=== PATIENT | female | born 1940 | race Caucasian/White ===

== ENCOUNTER → 2016-10-18 | Outpatient (CLI) | payer OTHER ==
[~2016-10-18] MED LIST: METO1TAB66 PO; MULTCHW4 PO; RIVA1TAB4 PO
--- NOTE | 2016-10-18 16:38 | MAMMOGRAPHY REPORT ---
BILATERAL DIGITAL SCREENING MAMMOGRAM WITH CAD: 10/18/2016 CLINICAL HISTORY: Routine screening. Patient has no complaints. TECHNIQUE: Bilateral CC, MLO and right XCCL views were obtained. Current study was also evaluated with a Computer Aided Detection (CAD) system. COMPARISON: Comparison is made to exams dated: 10/13/2015 mammogram, 10/08/2013 mammogram, 10/09/2014 mammogram, 10/05/2012 mammogram, 10/04/2011 mammogram, and 09/28/2010 mammogram - [facility]. BREAST COMPOSITION: There are scattered areas of fibroglandular density in both breasts. FINDINGS: There is a large, at least 14 cm, fat density mass occupying a portion of the right breast . A new linear scar marker overlies the anterior upper outer right breast. There is a stable intra mammary lymph node in the upper outer posterior right breast, and stable benign-appearing calcificat ions scattered bilaterally. There is asymmetry of the size of the breasts, right greater than left, which may be slightly increased in prominence comparing back to all available prior mammograms, alt daniela this could be technical due to positioning. No new suspicious mass, architectural distortion or cluster of suspicious microcalcifications is seen. IMPRESSION: ACR BI-RADS CATEGORY 1: NEGATIVE There is no mammographic evidence of malignancy. A 1 year screening mammogram is recommended. The p atient will receive written notification of the results. Approximately 10% of breast cancers are not detected with mammography. A negative mammographic repor t should not delay biopsy if a clinically suggestive mass is present. Antonietta Lewis M.D. ay/:10/18/2016 15:54:57 Rating Specialist: Juani NELSON(R)(M), [facility] letter sent: Normal 1/2 BI-RADS Code: ACR BI-RADS Category 1: Negative
== END | disposition home or self-care (01) ==
LOC: C.MAMM 09:07
PROVIDERS: ATTEND Internal Medicine
DX: Z12.31 Encounter for screening mammogram for malignant neoplasm of breast (principal)

== ENCOUNTER → 2017-06-07 | Outpatient (CLI) | payer OTHER ==
[~2017-06-07] MED LIST changes: +METO-452 PO; -METO1TAB66 PO; -MULTCHW4 PO; -RIVA1TAB4 PO
--- NOTE | 2017-06-07 12:23 | DIAGNOSTIC IMAGING REPORT ---
CHEST 2 VIEWS ROUTINE CLINICAL HISTORY: Shortness of breath on exertion COMPARISON STUDY: 11/23/2016 FINDINGS: The heart is mildly enlarged. There is no failure. There is a minimal airspace opacity within the base the right upper lobe anteriorly. This is likely inflammatory. Short-term radiographic follow-up is recommended. Also evident is an equivocal 1 cm left apical nodule. This area should be reevaluated on the follow-up x-ray. There are no pleural effusions.[ IMPRESSION: 1. New airspace opacity within the base of the right upper lobe anteriorly. This is likely infectious/inflammatory. Short-term radiographic follow-up is recommended 2. 1 cm left apical pulmonary nodule versus summation artifact. Electronically signed by: Magnus Oliveros M.D. 06/07/2017 12:21 PM Dictated Date/Time: 06/07/2017 12:19 PM
[2017-06-07 13:46] LABS: ALT/SGPT 15 U/L (12-78); BLOOD UREA NITROGEN 13 mg/dl (7-18); BUN/CREATININE RATIO 16.4 (10-20); CALCIUM 10.1 mg/dl (8.5-10.1); CARBON DIOXIDE 28 mmol/L (21-32); CHLORIDE 102 mmol/L (98-107); CHOLESTEROL 166 mg/dl (0-200); CREATININE 0.82 mg/dl (0.60-1.20); GLUCOSE 97 mg/dl (70-99); SODIUM 138 mmol/L (136-145)
[2017-06-07 13:51] LABS: BASO % 0.2 %; BASO ABS # 0.01 K/uL (0-0.2); COMPLETE YES; EOS % 0.6 %; HEMATOCRIT 44.3 % (37-47); IG% 0.2 %; LYMPH % 14.2 %; LYMPH ABS # 0.93 K/uL (1.2-3.4); MEAN CELL VOLUME 91.9 fL (80-100); MEAN CORPUSCULAR HEMOGLOBIN 31.3 pg (25-34); MEAN CORPUSCULAR HGB CONC 34.1 g/dl (32-36); MEAN PLATELET VOLUME 9.7 fL (7.4-10.4); MONO % 8.7 %; NEUT % 76.1 %; PLATELET COUNT 283 K/uL (130-400); RED BLOOD COUNT 4.82 M/uL (4.2-5.4); WHITE BLOOD COUNT 6.56 K/uL (4.8-10.8)
[2017-06-07 13:56] LABS: ALB/GLOB RATIO 0.8 (0.9-2); ALKALINE PHOSPHATASE 107 U/L (45-117); AST/SGOT 14 U/L (15-37); CHOLESTEROL/HDL RATIO 3.3; HDL CHOLESTEROL 50 mg/dl; LDL CHOLESTEROL CALCULATED 101 mg/dl; TRIGLYCERIDES 74 mg/dl (0-150); VERY LOW DENSITY LIPOPROT CALC 15 mg/dl
[2017-06-07 14:45] LABS: LYME DISEASE AB IGG NEG (NEG); LYME DISEASE AB IGM NEG (NEG)
== END | disposition home or self-care (01) ==
LOC: C.RADBC 10:52
PROVIDERS: ATTEND Physician Assistant
DX: Z00.00 Encounter for general adult medical examination without abnormal findings (principal); R06.02 Shortness of breath; R53.83 Other fatigue

== ENCOUNTER → 2017-07-05 | Outpatient (CLI) | payer OTHER ==
--- NOTE | 2017-07-05 13:19 | DIAGNOSTIC IMAGING REPORT ---
CHEST 2 VIEWS ROUTINE CLINICAL HISTORY: Pneumonia. COMPARISON STUDY: Chest radiograph June 07, 2017. FINDINGS: Lung volumes are at the upper limits of normal. There is no pneumothorax or pleural effusion. Mild cardiomegaly is noted. There is no evidence of pulmonary edema. Opacity within the lateral right midlung shown on prior exam has partially resolved. Minimal right midlung opacity has slightly increased. The possible left upper lobe nodule is not visualized. This was likely artifactual. IMPRESSION: Slight improvement in the previously described right upper lobe airspace opacity with interval development of minimal right midlung opacity. The findings suggest a mild infectious process. An additional PA and lateral chest radiograph in one month to ensure resolution is recommended. Electronically signed by: Bennett Montero M.D. 07/05/2017 1:18 PM Dictated Date/Time: 07/05/2017 1:09 PM
== END | disposition home or self-care (01) ==
LOC: C.RADBC 11:38
PROVIDERS: ATTEND Physician Assistant
DX: J18.9 Pneumonia, unspecified organism (principal)

== ENCOUNTER → 2017-07-12 | Outpatient (CLI) | payer OTHER ==
--- NOTE | 2017-07-12 08:55 | DIAGNOSTIC IMAGING REPORT ---
CT OF THE CHEST WITHOUT IV CONTRAST CLINICAL HISTORY: Pneumonia. Shortness of breath on exertion. COMPARISON STUDY: Chest radiograph June 07, 2017 and July 05, 2017. CT DOSE: 283.44 mGy.cm TECHNIQUE: Axial images of the chest were obtained without IV contrast. Images were reviewed in the axial, sagittal, and coronal planes. IV contrast was not administered for this examination. A dose lowering technique was utilized adhering to the principles of ALARA. FINDINGS: A multinodular thyroid goiter is again noted as shown on ultrasound of February 11, 2016. No enlarged axillary, mediastinal or hilar lymph nodes are present. The heart is mildly enlarged. A right breast reconstruction is noted. Central airways are patent. There is no pneumothorax. Note is made of a 1.3 cm groundglass left upper lobe opacity shown on image 45 of 301. This likely corresponds to the nodule shown on chest radiograph of June 07, 2017. Scattered mild multifocal airspace opacities are noted within the lungs, including a 1.9 cm subpleural irregular opacity within the right upper lobe shown on image 123 and a 3.1 cm elongated opacity within the anterior segment of the right upper lobe shown on image 150. These correspond to the opacities shown on exam of July 05, 2017. There is minimal left lower lobe airspace opacity. There is no cavitation. There is no pneumothorax or pleural effusion. Bony thorax and upper abdomen are unremarkable. IMPRESSION: 1. Multifocal airspace opacities within the right upper lobe and left lung apex which correspond to the findings on prior chest radiographs. A resolving infectious process is favored. However, a follow-up chest CT in 2 months to ensure resolution is recommended. 2. No pleural effusion. 3. No thoracic lymphadenopathy. Electronically signed by: Bennett Montero M.D. 07/12/2017 8:54 AM Dictated Date/Time: 07/12/2017 8:42 AM
== END | disposition home or self-care (01) ==
LOC: C.CTS 08:01
PROVIDERS: ATTEND Physician Assistant
DX: J18.9 Pneumonia, unspecified organism (principal); R06.02 Shortness of breath

== ENCOUNTER → 2017-09-18 | Outpatient (CLI) | payer OTHER ==
--- NOTE | 2017-09-19 07:44 | DIAGNOSTIC IMAGING REPORT ---
(CHEST) THORAX WITHOUT CT DOSE: 243.25 mGy.cm CLINICAL HISTORY: 76 years-old Female with HISTORY OF COUGH, PNEUMONIA. Follow-up study in a patient with recent cough and pneumonia TECHNIQUE: Multiaxial CT images of the chest were performed without contrast. A dose lowering technique was utilized adhering to the principles of ALARA. COMPARISON: Chest CT 07/12/2017 FINDINGS: Multinodular goiter with calcified nodules and heterogeneous parenchyma redemonstrated. No pathologic adenopathy identified. The heart is mildly enlarged. Coronary arterial disease. No thoracic aortic aneurysm identified. There is no pneumothorax or pleural effusion. The previously noted multifocal airspace opacities in the right upper lobe including the pleural-based 1.9 cm opacity have improved demonstrating near complete resolution. Only minimal peripheral groundglass opacity is now seen within the right upper lobe as seen on image 125 series 4 suggesting area of residual scarring. The 1.3 center groundglass opacity of the apical posterior segment left upper lobe has decreased in conspicuity. Mild bilateral subpleural reticular opacities suggest areas of scarring. 3 mm nodule of the lingula on image 189 series 4 appears unchanged. Unchanged 7 mm cystic focus of the left upper lobe. Central airways appear to be patent. There are calcifications of the tracheobronchial tree. No acute abnormality of the imaged upper abdomen identified. Soft tissues are unremarkable. The bones appear to be intact. Bones are mildly demineralized with multilevel endplate changes and facet arthropathy of the spine. IMPRESSION: 1. Near complete resolution of the previously described multifocal airspace opacities within the bilateral upper lobes with only minimal areas of groundglass opacity now seen within these distributions suggesting areas of parenchymal scarring. No new airspace opacities are identified. 2. Unchanged 3 mm nodule of the lingula. 3. No pathologic adenopathy of the chest. Electronically signed by: Fuad Peterson M.D. 09/18/2017 2:57 PM Dictated Date/Time: 09/18/2017 2:50 PM
== END | disposition home or self-care (01) ==
LOC: C.CTS 14:23
PROVIDERS: ATTEND Internal Medicine Pulmonary Disease
DX: J18.9 Pneumonia, unspecified organism (principal); R91.1 Solitary pulmonary nodule

== ENCOUNTER → 2017-09-26 | Outpatient (CLI) | payer OTHER ==
--- NOTE | 2017-09-26 11:23 | DIAGNOSTIC IMAGING REPORT ---
BILATERAL LOWER EXTREMITY VENOUS DOPPLER HISTORY: Acute bilateral lower extremity pain and swelling M79.89 Leg swelling COMPARISON STUDY: None. FINDINGS: There is normal compressibility, flow, and augmentation within the bilateral lower extremity deep venous systems. IMPRESSION: No sonographic evidence of deep venous thrombosis within the right or left lower extremity. Electronically signed by: Fuad Peterson M.D. 09/26/2017 11:22 AM Dictated Date/Time: 09/26/2017 11:21 AM
== END | disposition home or self-care (01) ==
LOC: C.ULTRBC 10:47
PROVIDERS: ATTEND Internal Medicine Pulmonary Disease
DX: M79.89 Other specified soft tissue disorders (principal)

== ENCOUNTER → 2017-10-24 | Outpatient (CLI) | payer OTHER ==
--- NOTE | 2017-10-25 07:55 | MAMMOGRAPHY REPORT ---
BILATERAL DIGITAL SCREENING MAMMOGRAM TOMOSYNTHESIS WITH CAD: 10/24/2017 CLINICAL HISTORY: Routine screening. Patient has no complaints. TECHNIQUE: Breast tomosynthesis in addition to standard 2D mammography was performed. Current study was also evaluated with a Computer Aided Detection (CAD) system. COMPARISON: Comparison is made to exams dated: 10/18/2016 mammogram, 10/13/2015 mammogram, 10/09/2014 m ammogram, 10/08/2013 mammogram, 10/05/2012 mammogram, and 10/04/2011 mammogram - [facility]. BREAST COMPOSITION: There are scattered areas of fibroglandular density in both breasts. FINDINGS: Again noted is a fat density mass occupying the superior right breast, and scattered benign -appearing microcalcifications. No new suspicious mass, architectural distortion or cluster of micro calcifications is seen. IMPRESSION: ACR BI-RADS CATEGORY 1: NEGATIVE There is no mammographic evidence of malignancy. A 1 year screening mammogram is recommended. The pa tient will receive written notification of the results. Approximately 10% of breast cancers are not detected with mammography. A negative mammographic report should not delay biopsy if a clinically suggestive mass is present. Antonietta Lewis M.D. ay/:10/24/2017 16:23:29 Rn Oncology Research: Faith Kiser, [facility] letter sent: Normal 1/2 BI-RADS Code: ACR BI-RADS Category 1: Negative
== END | disposition home or self-care (01) ==
LOC: C.MAMM 09:24
PROVIDERS: ATTEND Internal Medicine
DX: Z12.31 Encounter for screening mammogram for malignant neoplasm of breast (principal)

== ENCOUNTER 2018-02-15 08:25 | Inpatient (IN) | payer OTHER ==
[~2018-02-15] VITALS: Ht 167.6 cm; Wt 73.2 kg
[2018-02-15] MEDS ORDERED: SODIUM CHLORIDE 0.9% 1000ML 1,000 ML IV SCH (08:48)
[2018-02-15] MEDS ORDERED: OPTIRAY 320 IV PRN (09:00)
--- NOTE | 2018-02-15 09:12 | DIAGNOSTIC IMAGING REPORT ---
CHEST ONE VIEW PORTABLE CLINICAL HISTORY: Stroke mental status change COMPARISON STUDY: 02/09/2018 FINDINGS: The bones soft tissues and hemidiaphragms are normal. The cardiomediastinal silhouette is normal. The lungs are clear. The pulmonary vasculature is normal. IMPRESSION: Negative chest. The above report was generated using voice recognition software. It may contain grammatical, syntax or spelling errors. Electronically signed by: Munir Ortiz M.D. 02/15/2018 9:11 AM Dictated Date/Time: 02/15/2018 9:11 AM
[2018-02-15 09:15] LABS: BASO % 0.2 %; BASO ABS # 0.01 K/uL (0-0.2); EOS % 0.6 %; EOS ABS # 0.04 K/uL (0-0.5); HEMATOCRIT 43.1 % (37-47); HEMOGLOBIN 15.1 g/dL (12.0-16.0); IG# 0.02 K/uL (0.00-0.02); LYMPH % 12.9 %; LYMPH ABS # 0.81 K/uL (1.2-3.4); MEAN CELL VOLUME 87.4 fL (80-100); MEAN CORPUSCULAR HEMOGLOBIN 30.6 pg (25-34); MEAN PLATELET VOLUME 9.6 fL (7.4-10.4); MONO % 6.9 %; MONO ABS # 0.43 K/uL (0.11-0.59); NEUT % 79.1 %; NEUT ABS # 4.96 K/uL (1.4-6.5); PLATELET COUNT 255 K/uL (130-400); RED CELL DISTRIBUTION WIDTH CV 12.8 % (11.5-14.5); WHITE BLOOD COUNT 6.27 K/uL (4.8-10.8)
[2018-02-15 09:20] LABS: ISTAT CREATININE 0.7 mg/dl (0.6-1.3); ISTAT IONIZED CALCIUM 1.28 mmol/l (1.12-1.32); ISTAT POTASSIUM 4.4 mEq/L (3.3-5.0)
[2018-02-15 09:25] LABS: INR 1.4 (0.9-1.1); PTT PATIENT 33.1 SECONDS (21.0-31.0)
[2018-02-15] MEDS ORDERED: FLUT1INH INH (09:30)
[2018-02-15] MEDS ORDERED: XRL20 PO (09:30)
[2018-02-15] MEDS ORDERED: VBRT100 PO (09:30)
[2018-02-15] MEDS ORDERED: METO-217 PO (09:30)
[2018-02-15] MEDS ORDERED: ASPI81TA28 PO (09:30)
[2018-02-15 09:37] LABS: BLOOD UREA NITROGEN 21 mg/dl (7-18); CALCIUM 10.1 mg/dl (8.5-10.1); CARBON DIOXIDE 26 mmol/L (21-32); CKMB < 1.0 ng/ml (0.5-3.6); CREATININE 0.86 mg/dl (0.60-1.20); GLUCOSE 121 mg/dl (70-99); SODIUM 137 mmol/L (136-145)
--- NOTE | 2018-02-15 09:57 | DIAGNOSTIC IMAGING REPORT ---
HEAD WITHOUT CONTRAST (CT) CLINICAL HISTORY: 77 years-old Female with Stroke. Acute strokelike symptoms TECHNIQUE: Multiple axial CT images of the head were obtained without contrast. A dose lowering technique was utilized adhering to the principles of ALARA. COMPARISON: CTA head and neck of same day, CT head 02/09/2018, brain MRI 02/09/2018. FINDINGS: No acute intracranial hemorrhage, midline shift, intracranial mass, hydrocephalus, or abnormal extra-axial collection. Ill-defined area of low-attenuation is noted about the superior aspect of the left thalamus, 1.4 x 0.8 cm on image 1:15 of series 301 Mild brain atrophy. Ill-defined low-attenuation about the periventricular white matter suggests chronic microvascular ischemic changes. The calvarium is intact. Mastoid air cells and middle ear cavities are clear. Mild leftward bowing and spurring of the nasal septum. Moderate mucosal thickening of the sphenoid sinuses with air-fluid levels. Mild ethmoid sinus disease. Soft tissues and orbits are unremarkable. Note is made of disconjugate gaze. IMPRESSION: 1.4 x 0.8 cm area of low-attenuation about the left thalamus is new from comparison study suggesting acute infarction. No intracranial hemorrhage, midline shift or significant mass effect. The above report was generated using voice recognition software. It may contain grammatical, syntax or spelling errors. Electronically signed by: Fuad Peterson M.D. 02/15/2018 9:55 AM Dictated Date/Time: 02/15/2018 9:46 AM
--- NOTE | 2018-02-15 10:03 | DIAGNOSTIC IMAGING REPORT ---
CTA ANGIOGRAPHY OF THE HEAD CLINICAL HISTORY: Stroke symptoms. Visual disturbance. 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 COMPARISON STUDY: MRI of the brain and head CT February 09, 2018. TECHNIQUE: Helical axial images of the head were obtained following uneventful intravenous administration of 118 cc of Optiray 320. A dose lowering technique was utilized adhering to the principles of ALARA. FINDINGS: The sphenoid sinuses are partially opacified with air-fluid level and secretions. The orbits are unremarkable on this examination. No acute intracranial hemorrhage is present. Ventricular system is unremarkable. Brain parenchyma is suboptimally assessed on this exam. There is moderate plaque within the bilateral cavernous carotids. No high-grade stenosis is present. No abrupt vessel cut off is identified. No intracranial aneurysm is identified. Posterior circulation is intact. IMPRESSION: 1. No intracranial aneurysm or abrupt vessel cutoff. 2. Moderate plaque within the bilateral cavernous carotids without high-grade stenosis. 3. Sphenoid sinus air-fluid level which favors acute sinusitis. Electronically signed by: Bennett Montero M.D. 02/15/2018 10:01 AM Dictated Date/Time: 02/15/2018 9:47 AM
--- NOTE | 2018-02-15 11:07 | DIAGNOSTIC IMAGING REPORT ---
NECK ANGIO WITH CONTRAST CLINICAL HISTORY: 77 years-old Female with Stroke symptoms. Acute strokelike symptoms COMPARISON STUDY: CTA had and CT head of same day, chest radiograph 02/15/2018, CT chest 09/18/2017. TECHNIQUE: Following the IV administration of 118 of Optiray 320, CT angiogram of the neck was performed from the aortic arch to the skull base. Images are reviewed in the axial, sagittal, and coronal planes. 3-D MIPS images are created and assessed. IV contrast was administered without complication. All measurements were calculated based on NASCET criteria. A dose lowering technique was utilized adhering to the principles of ALARA. FINDINGS: The opacified pulmonary arterial tree is unremarkable. Normal three-vessel morphology of the aortic arch. Moderate mixed plaque formation about the aortic arch and proximal great vessels. The imaged bilateral subclavian arteries are widely patent. The bilateral common carotid arteries are widely patent. Moderate mixed plaque formation of the carotid bulbs bilaterally. There is patency of the bilateral internal carotid arteries. Calcified plaque formation about the cavernous segments partially imaged. Calcified plaque formation is noted about the petrous segment right internal artery without high-grade stenosis. The vertebral arteries appear to be codominant. Mild tortuosity of the proximal right vertebral artery. Imaged basilar artery is also widely patent. There is no aneurysm, high-grade stenosis, proximal branch occlusion or dissection identified. Multifocal partially imaged alveolar opacities about the lung apices with focal consolidative opacity about the right lung apex measuring up to 10 mm. Mild bilateral bronchial wall thickening. Multinodular goiter with 2.6 x 1.9 cm heterogeneous nodule seen on the left containing internal calcifications. There are no pathologically enlarged lymph nodes identified about the neck. Air-fluid levels with moderate mucosal thickening again noted within the sphenoid sinuses. Mastoid air cells and middle ear cavities are clear. Multilevel uncovertebral spurring and intervertebral disc space narrowing with facet arthropathy of the cervical spine. IMPRESSION: 1. No aneurysm, dissection, high-grade stenosis or proximal branch occlusion. 2. Moderate mixed plaque formation about the bilateral carotid bulbs without significant narrowing. 3. Multifocal patchy and partially imaged alveolar opacities about the lung apices. These findings are suspicious for multifocal pneumonia and follow-up imaging after treatment to document resolution is recommended. 4. Suggested acute sphenoid sinus disease. The above report was generated using voice recognition software. It may contain grammatical, syntax or spelling errors. Electronically signed by: Fuad Peterson M.D. 02/15/2018 11:06 AM Dictated Date/Time: 02/15/2018 10:57 AM
[2018-02-15] MEDS ORDERED: PHARMACIST DISCHARGE MED REC CONSULT PRN (11:15)
--- NOTE | 2018-02-15 12:02 | EMERGENCY ROOM VISIT NOTE ---
History Report prepared by Anne: Jackie Tellez Under the Supervision of: Dr. Renny Arroyo M.D. First contact with patient: 08:37 Chief Complaint: NEURO SYMPTOMS Stated Complaint: POSSIBLE STROKE Nursing Triage Summary: Pt arrived via POV from home. Pts son states night pt had difficulty getting to bathroom overnight. Monday woke up and was having trouble with vision. Pts son states left eye not tracking with right eye. 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 Pt had testing done on Monday. Pt started having short term memory loss Monday night. Patch noted to pts left eye, provided by Dr. Stevenson. History of Present Illness The patient is a 77 year old female who presents to the Emergency Room with complaints of persistent speech difficulties starting 4 days ago. 1 week ago, the patient bumped into several objects while making her way to the bathroom in the night. The next morning, she woke up with double vision and found that her left eye was not tracking as it should. She was brought to the ED where she had CT, MRI, MRA, and blood work which was unremarkable. She followed up with ophthalmology and was diagnosed with 3rd nerve palsy. She was doing well, until 4 days ago she woke up from a nap feeling disoriented. She seemed to have some sudden memory loss. She was unable to identify roads that she is normally familiar with. She could not explain how to get to her doctor's office when asked by her son. She notes that she can picture the way, but cannot explain it. She seems to have difficulty answering questions. She denies any abdominal pain. Source of History: patient, family Onset: 4 days ago Position: other (speech) Quality: other (difficulty answering questions) Timing: other (persistent) Associated Symptoms: No abdominal pain Review of Systems See HPI for pertinent positives & negatives. A total of 10 systems reviewed and were otherwise negative. Past Medical & Surgical Medical Problems: (1) Acute ischemic stroke Surgical Problems: (1) History of cataract surgery Family History Noncontributory secondary to age Social History Smoking Status: Former Smoker Alcohol Use: occasionally Drug Use: none Marital Status: Housing Status: lives with family Occupation Status: retired Current/Historical Medications Scheduled Aspirin (Aspirin Ec), 81 MG PO DAILY Doxycycline Hyclate (Doxycycline Hyclate), 100 MG PO BID Fluticasone Furoate-Vilanterol (Breo Ellipta), 1 PUFF INH DAILY Metoprolol Succinate (Toprol Xl), 50 MG PO DAILY Rivaroxaban (Xarelto), 20 MG PO DAILY Allergies Coded Allergies: Acetaminophen (Verified Allergy, Severe, ANAPHYLAXIS, 02/15/18) Oxycodone (Verified Allergy, Severe, ANAPHYLAXIS, 02/15/18) Codeine (Verified Allergy, Mild, HIVES, 02/15/18) Penicillins (Verified Allergy, Mild, ANAPHYLAXIS, 02/15/18) Physical Exam Vital Signs Date Time Temp Pulse Resp B/P (MAP) Pulse Ox O2 Delivery O2 Flow Rate FiO2 02/15/18 11:06 78 18 150/87 96 Room Air 02/15/18 10:30 78 20 171/79 97 Room Air 02/15/18 08:52 95 02/15/18 08:40 96 Room Air 02/15/18 08:27 36.2 95 18 181/84 95 Room Air Physical Exam GENERAL: Awake, alert, well-appearing, in no acute distress HENT: Normocephalic, atraumatic. Oropharynx unremarkable. EYES: Normal conjunctiva. Sclera non-icteric. NECK: Supple. No nuchal rigidity. FROM. No JVD. RESPIRATORY: Clear to auscultation. CARDIAC: Regular rate, normal rhythm. Extremities warm and well perfused. Pulses equal. ABDOMEN: Soft, non-distended. No tenderness to palpation. No rebound or guarding. No masses. RECTAL: Deferred. MUSCULOSKELETAL: Chest examination reveals no tenderness. The back is symmetrical on inspection without obvious abnormality. There is no CVA tenderness to palpation. No joint edema. LOWER EXTREMITIES: Calves are equal size bilaterally and non-tender. No edema. No discoloration. NEURO: Normal sensorium. No sensory or motor deficits noted. SKIN: No rash or jaundice noted. Medical Decision & Procedures ER Provider Diagnostic Interpretation: X-ray results as stated below per interpretation by me and the radiologist. Radiology results as stated below per my review and radiologist interpretation: CHEST ONE VIEW PORTABLE CLINICAL HISTORY: Stroke mental status change COMPARISON STUDY: 02/09/2018 FINDINGS: The bones soft tissues and hemidiaphragms are normal. The cardiomediastinal silhouette is normal. The lungs are clear. The pulmonary vasculature is normal. IMPRESSION: Negative chest. The above report was generated using voice recognition software. It may contain grammatical, syntax or spelling errors. Electronically signed by: Munir Ortiz M.D. 02/15/2018 9:11 AM Dictated Date/Time: 02/15/2018 9:11 AM HEAD WITHOUT CONTRAST (CT) CLINICAL HISTORY: 77 years-old Female with Stroke. Acute strokelike symptoms TECHNIQUE: Multiple axial CT images of the head were obtained without contrast. A dose lowering technique was utilized adhering to the principles of ALARA. COMPARISON: CTA head and neck of same day, CT head 02/09/2018, brain MRI 02/09/2018. FINDINGS: No acute intracranial hemorrhage, midline shift, intracranial mass, hydrocephalus, or abnormal extra-axial collection. Ill-defined area of low-attenuation is noted about the superior aspect of the left thalamus, 1.4 x 0.8 cm on image 1:15 of series 301 Mild brain atrophy. Ill-defined low-attenuation about the periventricular white matter suggests chronic microvascular ischemic changes. The calvarium is intact. Mastoid air cells and middle ear cavities are clear. Mild leftward bowing and spurring of the nasal septum. Moderate mucosal thickening of the sphenoid sinuses with air-fluid levels. Mild ethmoid sinus disease. Soft tissues and orbits are unremarkable. Note is made of disconjugate gaze. IMPRESSION: 1.4 x 0.8 cm area of low-attenuation about the left thalamus is new from comparison study suggesting acute infarction. No intracranial hemorrhage, midline shift or significant mass effect. The above report was generated using voice recognition software. It may contain grammatical, syntax or spelling errors. Electronically signed by: Fuad Peterson M.D. 02/15/2018 9:55 AM Dictated Date/Time: 02/15/2018 9:46 AM CTA ANGIOGRAPHY OF THE HEAD CLINICAL HISTORY: Stroke symptoms. Visual disturbance. 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 COMPARISON STUDY: MRI of the brain and head CT February 09, 2018. TECHNIQUE: Helical axial images of the head were obtained following uneventful intravenous administration of 118 cc of Optiray 320. A dose lowering technique was utilized adhering to the principles of ALARA. FINDINGS: The sphenoid sinuses are partially opacified with air-fluid level and secretions. The orbits are unremarkable on this examination. No acute intracranial hemorrhage is present. Ventricular system is unremarkable. Brain parenchyma is suboptimally assessed on this exam. There is moderate plaque within the bilateral cavernous carotids. No high-grade stenosis is present. No abrupt vessel cut off is identified. No intracranial aneurysm is identified. Posterior circulation is intact. IMPRESSION: 1. No intracranial aneurysm or abrupt vessel cutoff. 2. Moderate plaque within the bilateral cavernous carotids without high-grade stenosis. 3. Sphenoid sinus air-fluid level which favors acute sinusitis. Electronically signed by: Bennett Montero M.D. 02/15/2018 10:01 AM Dictated Date/Time: 02/15/2018 9:47 AM NECK ANGIO WITH CONTRAST CLINICAL HISTORY: 77 years-old Female with Stroke symptoms. Acute strokelike symptoms COMPARISON STUDY: CTA had and CT head of same day, chest radiograph 02/15/2018, CT chest 09/18/2017. TECHNIQUE: Following the IV administration of 118 of Optiray 320, CT angiogram of the neck was performed from the aortic arch to the skull base. Images are reviewed in the axial, sagittal, and coronal planes. 3-D MIPS images are created and assessed. IV contrast was administered without complication. All measurements were calculated based on NASCET criteria. A dose lowering technique was utilized adhering to the principles of ALARA. FINDINGS: The opacified pulmonary arterial tree is unremarkable. Normal three-vessel morphology of the aortic arch. Moderate mixed plaque formation about the aortic arch and proximal great vessels. The imaged bilateral subclavian arteries are widely patent. The bilateral common carotid arteries are widely patent. Moderate mixed plaque formation of the carotid bulbs bilaterally. There is patency of the bilateral internal carotid arteries. Calcified plaque formation about the cavernous segments partially imaged. Calcified plaque formation is noted about the petrous segment right internal artery without high-grade stenosis. The vertebral arteries appear to be codominant. Mild tortuosity of the proximal right vertebral artery. Imaged basilar artery is also widely patent. There is no aneurysm, high-grade stenosis, proximal branch occlusion or dissection identified. Multifocal partially imaged alveolar opacities about the lung apices with focal consolidative opacity about the right lung apex measuring up to 10 mm. Mild bilateral bronchial wall thickening. Multinodular goiter with 2.6 x 1.9 cm heterogeneous nodule seen on the left containing internal calcifications. There are no pathologically enlarged lymph nodes identified about the neck. Air-fluid levels with moderate mucosal thickening again noted within the sphenoid sinuses. Mastoid air cells and middle ear cavities are clear. Multilevel uncovertebral spurring and intervertebral disc space narrowing with facet arthropathy of the cervical spine. IMPRESSION: 1. No aneurysm, dissection, high-grade stenosis or proximal branch occlusion. 2. Moderate mixed plaque formation about the bilateral carotid bulbs without significant narrowing. 3. Multifocal patchy and partially imaged alveolar opacities about the lung apices. These findings are suspicious for multifocal pneumonia and follow-up imaging after treatment to document resolution is recommended. 4. Suggested acute sphenoid sinus disease. The above report was generated using voice recognition software. It may contain grammatical, syntax or spelling errors. Electronically signed by: Fuad Peterson M.D. 02/15/2018 11:06 AM Dictated Date/Time: 02/15/2018 10:57 AM Laboratory Results 02/15/18 08:52 Red Blood Count 4.93, Mean Corpuscular Volume 87.4, Mean Corpuscular Hemoglobin 30.6, Mean Corpuscular Hemoglobin Concent 35.0, Mean Platelet Volume 9.6, Neutrophils (%) (Auto) 79.1, Lymphocytes (%) (Auto) 12.9, Monocytes (%) (Auto) 6.9, Eosinophils (%) (Auto) 0.6, Basophils (%) (Auto) 0.2, Neutrophils # (Auto) 4.96, Lymphocytes # (Auto) 0.81, Monocytes # (Auto) 0.43, Eosinophils # (Auto) 0.04, Basophils # (Auto) 0.01 02/15/18 08:52 Test 02/15/18 08:52 02/15/18 09:07 02/15/18 09:55 White Blood Count 6.27 K/uL (4.8-10.8) Red Blood Count 4.93 M/uL (4.2-5.4) Hemoglobin 15.1 g/dL (12.0-16.0) Hematocrit 43.1 % (37-47) Mean Corpuscular Volume 87.4 fL (80-100) Mean Corpuscular Hemoglobin 30.6 pg (25-34) Mean Corpuscular Hemoglobin Concent 35.0 g/dl (32-36) Platelet Count 255 K/uL (130-400) Mean Platelet Volume 9.6 fL (7.4-10.4) Neutrophils (%) (Auto) 79.1 % Lymphocytes (%) (Auto) 12.9 % Monocytes (%) (Auto) 6.9 % Eosinophils (%) (Auto) 0.6 % Basophils (%) (Auto) 0.2 % Neutrophils # (Auto) 4.96 K/uL (1.4-6.5) Lymphocytes # (Auto) 0.81 K/uL (1.2-3.4) Monocytes # (Auto) 0.43 K/uL (0.11-0.59) Eosinophils # (Auto) 0.04 K/uL (0-0.5) Basophils # (Auto) 0.01 K/uL (0-0.2) RDW Standard Deviation 41.0 fL (36.4-46.3) RDW Coefficient of Variation 12.8 % (11.5-14.5) Immature Granulocyte % (Auto) 0.3 % Immature Granulocyte # (Auto) 0.02 K/uL (0.00-0.02) Prothrombin Time 14.9 SECONDS (9.0-12.0) Prothromb Time International Ratio 1.4 (0.9-1.1) Activated Partial Thromboplast Time 33.1 SECONDS (21.0-31.0) Partial Thromboplastin Ratio 1.3 Est Creatinine Clear Calc Drug Dose 54.2 ml/min Estimated GFR () 74.5 Estimated GFR (Non- 64.3 BUN/Creatinine Ratio 24.1 (10-20) Calcium Level 10.1 mg/dl (8.5-10.1) Magnesium Level 2.3 mg/dl (1.8-2.4) Total Creatine Kinase 40 U/L (26-192) Creatine Kinase MB < 1.0 ng/ml (0.5-3.6) Creatine Kinase MB Ratio (0-3.0) Troponin I < 0.015 ng/ml (0-0.045) Bedside Hemoglobin 13.9 g/dl (12.0-16.0) Bedside Hematocrit 41 % (37-47) Bedside Sodium 136 mEq/L (135-144) Bedside Potassium 4.4 mEq/L (3.3-5.0) Bedside Chloride 102 mEq/L (101-112) Bedside Total CO2 29 mEq/l (24-31) Anion Gap 11.0 mmol/L (16-25) Bedside Blood Urea Nitrogen 25 mg/dl (7-18) Bedside Creatinine 0.7 mg/dl (0.6-1.3) Bedside Glucose (other) 127 mg/dl (70-99) Bedside Ionized Calcium (Saleem) 1.28 mmol/l (1.12-1.32) Urine Color YELLOW Urine Appearance CLEAR (CLEAR) Urine pH 5.5 (4.5-7.5) Urine Specific [place] 1.041 (1.000-1.030) Urine Protein NEG (NEG) Urine Glucose (UA) NEG (NEG) Urine Ketones NEG (NEG) Urine Occult Blood NEG (NEG) Urine Nitrite NEG (NEG) Urine Bilirubin NEG (NEG) Urine Urobilinogen NEG (NEG) Urine Leukocyte Esterase TRACE (NEG) Urine WBC (Auto) 1-5 /hpf (0-5) Urine RBC (Auto) 0-4 /hpf (0-4) Urine Hyaline Casts (Auto) 1-5 /lpf (0-5) Urine Epithelial Cells (Auto) >30 /lpf (0-5) Urine Bacteria (Auto) NEG (NEG) Labs reviewed by ED physician. Medications Administered Medications (Trade) Dose Ordered Sig/Adriana Route Start Time Stop Time Status Last Admin Dose Admin Sodium Chloride 1,000 ml @ 50 mls/hr Q20H IV 02/15/18 08:48 03/17/18 08:47 02/15/18 10:37 50 MLS/HR ECG Per My Interpretation Indication: other (stroke symptoms) Rate (beats per minute): 80 Rhythm: atrial fibrillation Findings: other (no ST elevation or depression) Comparison ECG Date: 09-Feb-2018 Change: no significant change ED Course 0841: Past medical records reviewed. The patient was evaluated in room B9. A complete history and physical examination was performed. 1016: Upon reexamination the patient is resting comfortably. I discussed results and treatment plan with the patient and family. They verbalize agreement and understanding. The patient will be evaluated for further management. 1025: I discussed the patient's case with Dr. Pierce, [facility] [place] hospitalist. He has agreed to evaluate the patient for further management and care. Medical Decision Differential diagnosis: Etiologies such as metabolic, infection, hypo/hyperglycemia, electrolyte abnormalities, cardiac sources, intracerebral event, toxicologic, neurologic, as well as others were entertained. Medication Reconcilliation Current Medication List: was personally reviewed by me Blood Pressure Screening Patient's blood pressure: Elevated blood pressure Referred to hospitalist Consults Time Called: 1013 Consulting Physician: Dr. Pierce [facility] [place] hospitalist Returned Call: [phone] I discussed the patient's case with him. He has agreed to evaluate the patient for further management and care. Impression Primary Impression: CVA (cerebral vascular accident) Scribe Attestation The scribe's documentation has been prepared under my direction and personally reviewed by me in its entirety. I confirm that the note above accurately reflects all work, treatment, procedures, and medical decision making performed by me. Departure Information Dispostion Being Evaluated By Hospitalist Referrals Vlad Leach M.D. (PCP) Patient Instructions My [facility]
[2018-02-15 12:07] LABS: HEMOGLOBIN A1C 5.8 % (4.5-5.6)
--- NOTE | 2018-02-15 12:19 | History and Physical ---
History & Physical Date & Time of Service: Feb 15, 2018 at 11:55 Chief Complaint: Possible Stroke Primary Care Physician: Vlad Leach M.D. History of Present Illness 77 yo female who was recently evaluated for stroke on the of this month, had negative extensive workup which included negative MRI, MRA of brain with negative CT scans at the ED. 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 Patient went to see an ophthalmology that day as she had double vision. She had mild ptosis of the left side at the time with complete loss of adduction of the left eye. She was found to have sinus sinusitis on imaging and placed on doxycycline. On Monday, at noon, patient was not herself, as per family. She stated she was confused and had memory loss. She stated that she was having difficulty finding words, and some balance issues. This gradually improved over the course of the week, up until today where she just didn't feel like her normal self. She is vague about of she feels today. Her family is in the room and states that she is normally very active and last week was riding her mountain bike. Past Medical/Surgical History Medical Problems: (1) Acute ischemic stroke (2) New onset atrial fibrillation (3) Third nerve palsy of left eye Surgical Problems: (1) History of cataract surgery Family History Family History Mother Family history of Breast Cancer Family history of Mother At Age 78 Father Family history of Acute Myocardial Infarction Family history of Father At Age 74 Brother Family history of Intellectual Disabilities Family history of Pacemaker Permanent Placement Family History Family history of Coronary Artery Disease Family history of Family Health Status Number Of Children Social History Smoking Status: Former Smoker Drug Use: none Marital Status: Occupational Status: retired Immunizations History of Influenza Vaccine: Yes History of Tetanus Vaccine?: Yes History of Pneumococcal: Yes History of Hepatitis B Vaccine: Yes Allergies Coded Allergies: Acetaminophen (Verified Allergy, Severe, ANAPHYLAXIS, 02/15/18) Oxycodone (Verified Allergy, Severe, ANAPHYLAXIS, 02/15/18) Codeine (Verified Allergy, Mild, HIVES, 02/15/18) Penicillins (Verified Allergy, Mild, ANAPHYLAXIS, 02/15/18) Home Medications Scheduled Aspirin (Aspirin Ec), 81 MG PO DAILY Doxycycline Hyclate (Doxycycline Hyclate), 100 MG PO BID Fluticasone Furoate-Vilanterol (Breo Ellipta), 1 PUFF INH DAILY Metoprolol Succinate (Toprol Xl), 50 MG PO DAILY Rivaroxaban (Xarelto), 20 MG PO DAILY Review of Systems Constitutional: No fever, No chills Eyes: + worsening of vision ENT: No hearing loss Respiratory: No cough Cardiovascular: No chest pain Abdomen: No pain Neurologic: + memory loss, No paralysis, No weakness Psychiatric: No depression symptoms Endocrine: + fatigue Hematologic / Lymphatic: No abnormal bleeding/bruising Integumentary: No rash Allergic / Immunologic: No environmental allergies Physical Exam Vital Signs Date Time Temp Pulse Resp B/P (MAP) Pulse Ox O2 Delivery O2 Flow Rate FiO2 02/15/18 10:30 78 20 171/79 97 Room Air 02/15/18 08:52 95 02/15/18 08:40 96 Room Air 02/15/18 08:27 36.2 95 18 181/84 95 Room Air General Appearance: WD/WN Head: normocephalic, atraumatic Eyes: + pertinent finding (left eye is covered in a patch.) ENT: normal ENT inspection Neck: supple, no adenopathy Respiratory/Chest: chest non-tender, lungs clear, normal breath sounds Cardiovascular: no edema, + irregularly irregular Abdomen/GI: normal bowel sounds, non tender, soft Extremities/Musculoskelatal: normal inspection, no calf tenderness Neurologic/Psych: alert, oriented x 3 Skin: normal color Lymphatic: no adenopathy Diagnostics Laboratory Results Results Past 24 Hours Test 02/15/18 08:52 02/15/18 09:07 02/15/18 09:55 Range/Units White Blood Count 6.27 4.8-10.8 K/uL Red Blood Count 4.93 4.2-5.4 M/uL Hemoglobin 15.1 12.0-16.0 g/dL Hematocrit 43.1 37-47 % Mean Corpuscular Volume 87.4 80-100 fL Mean Corpuscular Hemoglobin 30.6 25-34 pg Mean Corpuscular Hemoglobin Concent 35.0 32-36 g/dl Platelet Count 255 130-400 K/uL Mean Platelet Volume 9.6 7.4-10.4 fL Neutrophils (%) (Auto) 79.1 % Lymphocytes (%) (Auto) 12.9 % Monocytes (%) (Auto) 6.9 % Eosinophils (%) (Auto) 0.6 % Basophils (%) (Auto) 0.2 % Neutrophils # (Auto) 4.96 1.4-6.5 K/uL Lymphocytes # (Auto) 0.81 1.2-3.4 K/uL Monocytes # (Auto) 0.43 0.11-0.59 K/uL Eosinophils # (Auto) 0.04 0-0.5 K/uL Basophils # (Auto) 0.01 0-0.2 K/uL RDW Standard Deviation 41.0 36.4-46.3 fL RDW Coefficient of Variation 12.8 11.5-14.5 % Immature Granulocyte % (Auto) 0.3 % Immature Granulocyte # (Auto) 0.02 0.00-0.02 K/uL Prothrombin Time 14.9 9.0-12.0 SECONDS Prothromb Time International Ratio 1.4 0.9-1.1 Activated Partial Thromboplast Time 33.1 21.0-31.0 SECONDS Partial Thromboplastin Ratio 1.3 Sodium Level 137 136-145 mmol/L Potassium Level 4.0 3.5-5.1 mmol/L Chloride Level 104 98-107 mmol/L Carbon Dioxide Level 26 21-32 mmol/L Anion Gap 7.0 11.0 16-25 mmol/L Blood Urea Nitrogen 21 7-18 mg/dl Creatinine 0.86 0.60-1.20 mg/dl Est Creatinine Clear Calc Drug Dose 54.2 ml/min Estimated GFR () 74.5 Estimated GFR (Non- 64.3 BUN/Creatinine Ratio 24.1 10-20 Random Glucose 121 70-99 mg/dl Calcium Level 10.1 8.5-10.1 mg/dl Magnesium Level 2.3 1.8-2.4 mg/dl Total Creatine Kinase 40 26-192 U/L Creatine Kinase MB < 1.0 0.5-3.6 ng/ml Creatine Kinase MB Ratio 0-3.0 Troponin I < 0.015 0-0.045 ng/ml Bedside Hemoglobin 13.9 12.0-16.0 g/dl Bedside Hematocrit 41 37-47 % Bedside Sodium 136 135-144 mEq/L Bedside Potassium 4.4 3.3-5.0 mEq/L Bedside Chloride 102 101-112 mEq/L Bedside Total CO2 29 24-31 mEq/l Bedside Blood Urea Nitrogen 25 7-18 mg/dl Bedside Creatinine 0.7 0.6-1.3 mg/dl Bedside Glucose (other) 127 70-99 mg/dl Bedside Ionized Calcium (Saleem) 1.28 1.12-1.32 mmol/l Urine Color YELLOW Urine Appearance CLEAR CLEAR Urine pH 5.5 4.5-7.5 Urine Specific [place] 1.041 1.000-1.030 Urine Protein NEG NEG Urine Glucose (UA) NEG NEG Urine Ketones NEG NEG Urine Occult Blood NEG NEG Urine Nitrite NEG NEG Urine Bilirubin NEG NEG Urine Urobilinogen NEG NEG Urine Leukocyte Esterase TRACE NEG Urine WBC (Auto) 1-5 0-5 /hpf Urine RBC (Auto) 0-4 0-4 /hpf Urine Hyaline Casts (Auto) 1-5 0-5 /lpf Urine Epithelial Cells (Auto) >30 0-5 /lpf Urine Bacteria (Auto) NEG NEG Diagnostic Radiology HEAD WITHOUT CONTRAST (CT) CLINICAL HISTORY: 77 years-old Female with Stroke. Acute strokelike symptoms TECHNIQUE: Multiple axial CT images of the head were obtained without contrast. A dose lowering technique was utilized adhering to the principles of ALARA. COMPARISON: CTA head and neck of same day, CT head 02/09/2018, brain MRI 02/09/2018. FINDINGS: No acute intracranial hemorrhage, midline shift, intracranial mass, hydrocephalus, or abnormal extra-axial collection. Ill-defined area of low-attenuation is noted about the superior aspect of the left thalamus, 1.4 x 0.8 cm on image 1:15 of series 301 Mild brain atrophy. Ill-defined low-attenuation about the periventricular white matter suggests chronic microvascular ischemic changes. The calvarium is intact. Mastoid air cells and middle ear cavities are clear. Mild leftward bowing and spurring of the nasal septum. Moderate mucosal thickening of the sphenoid sinuses with air-fluid levels. Mild ethmoid sinus disease. Soft tissues and orbits are unremarkable. Note is made of disconjugate gaze. IMPRESSION: 1.4 x 0.8 cm area of low-attenuation about the left thalamus is new from comparison study suggesting acute infarction. No intracranial hemorrhage, midline shift or significant mass effect. CHEST ONE VIEW PORTABLE CLINICAL HISTORY: Stroke mental status change COMPARISON STUDY: 02/09/2018 FINDINGS: The bones soft tissues and hemidiaphragms are normal. The cardiomediastinal silhouette is normal. The lungs are clear. The pulmonary vasculature is normal. IMPRESSION: Negative chest. CTA ANGIOGRAPHY OF THE HEAD CLINICAL HISTORY: Stroke symptoms. Visual disturbance. 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 COMPARISON STUDY: MRI of the brain and head CT February 09, 2018. TECHNIQUE: Helical axial images of the head were obtained following uneventful intravenous administration of 118 cc of Optiray 320. A dose lowering technique was utilized adhering to the principles of ALARA. FINDINGS: The sphenoid sinuses are partially opacified with air-fluid level and secretions. The orbits are unremarkable on this examination. No acute intracranial hemorrhage is present. Ventricular system is unremarkable. Brain parenchyma is suboptimally assessed on this exam. There is moderate plaque within the bilateral cavernous carotids. No high-grade stenosis is present. No abrupt vessel cut off is identified. No intracranial aneurysm is identified. Posterior circulation is intact. IMPRESSION: 1. No intracranial aneurysm or abrupt vessel cutoff. 2. Moderate plaque within the bilateral cavernous carotids without high-grade stenosis. 3. Sphenoid sinus air-fluid level which favors acute sinusitis. NECK ANGIO WITH CONTRAST CLINICAL HISTORY: 77 years-old Female with Stroke symptoms. Acute strokelike symptoms COMPARISON STUDY: CTA had and CT head of same day, chest radiograph 02/15/2018, CT chest 09/18/2017. TECHNIQUE: Following the IV administration of 118 of Optiray 320, CT angiogram of the neck was performed from the aortic arch to the skull base. Images are reviewed in the axial, sagittal, and coronal planes. 3-D MIPS images are created and assessed. IV contrast was administered without complication. All measurements were calculated based on NASCET criteria. A dose lowering technique was utilized adhering to the principles of ALARA. FINDINGS: The opacified pulmonary arterial tree is unremarkable. Normal three-vessel morphology of the aortic arch. Moderate mixed plaque formation about the aortic arch and proximal great vessels. The imaged bilateral subclavian arteries are widely patent. The bilateral common carotid arteries are widely patent. Moderate mixed plaque formation of the carotid bulbs bilaterally. There is patency of the bilateral internal carotid arteries. Calcified plaque formation about the cavernous segments partially imaged. Calcified plaque formation is noted about the petrous segment right internal artery without high-grade stenosis. The vertebral arteries appear to be codominant. Mild tortuosity of the proximal right vertebral artery. Imaged basilar artery is also widely patent. There is no aneurysm, high-grade stenosis, proximal branch occlusion or dissection identified. Multifocal partially imaged alveolar opacities about the lung apices with focal consolidative opacity about the right lung apex measuring up to 10 mm. Mild bilateral bronchial wall thickening. Multinodular goiter with 2.6 x 1.9 cm heterogeneous nodule seen on the left containing internal calcifications. There are no pathologically enlarged lymph nodes identified about the neck. Air-fluid levels with moderate mucosal thickening again noted within the sphenoid sinuses. Mastoid air cells and middle ear cavities are clear. Multilevel uncovertebral spurring and intervertebral disc space narrowing with facet arthropathy of the cervical spine. IMPRESSION: 1. No aneurysm, dissection, high-grade stenosis or proximal branch occlusion. 2. Moderate mixed plaque formation about the bilateral carotid bulbs without significant narrowing. 3. Multifocal patchy and partially imaged alveolar opacities about the lung apices. These findings are suspicious for multifocal pneumonia and follow-up imaging after treatment to document resolution is recommended. 4. Suggested acute sphenoid sinus disease. EKG Atrial fibrillation Abnormal ECG When compared with ECG of 09-FEB-2018 10:12, No significant change was found Impression Assessment and Plan Acute thalamic stroke in a 77 yo female with recent megative stroke workup on 1. Acute Thalamic stroke Will admit to Tele Likely small vascular disease Will monitor hypertension, keeping MAP at around 100. CTA and CT scan results noted in this document Will continue xarelto and baby aspirin in AM. Patient took her meds today continue statin consult PT/OT. Speech 2. HTN continue home meds 3. Chronic persistent A. fib Patient is on xarelto and metoprolol 4.Asthma: Continue Breo stable 5. acute sinusitits: on Doxycycline since 02/09/18. Patient took her home pm meds\. Will order bid Doxycycline BID starting in am Code status: Full Full code Advanced Directives Existing Advance Directive: No Existing Living Will: No Existing Power of Crisis Intervention Specialist: No Existing Health Care Proxy: No Resuscitation Status VTE Prophylaxis Will order VTE Prophylaxis: Yes (as she is already on xarelto) Reason for no VTE drug order: Contraindicated Reason no Mechanical VTE Order: Treatment not indicated
[2018-02-15 12:52] VITALS: BP 174/84; TEMP 36.7; O2SAT 96; Ht 167.6 cm; Wt 73.2 kg
[2018-02-15] MEDS: SODIUM CHLORIDE 0.9% 1000ML 1,000 ML IV SCH (13:28)
[2018-02-15] MEDS ORDERED: PNEUMOCOCCAL POLYSACCHARIDES 25 MCG/0.5 ML VIAL/SYR IM. ONE (13:30)
[2018-02-15] MEDS ORDERED: PNEUMOCOCCAL ADMINISTRATION CHARGE ONE (13:30)
[2018-02-15 15:58] VITALS: BP 151/83; PULSE 76; TEMP 36.5; O2SAT 94
[2018-02-15 16:00] VITALS: O2SAT 94
[2018-02-15] MEDS ORDERED: NURSING VERBAL MED ORDER ONE (19:15)
[2018-02-15 20:00] VITALS: O2SAT 95
[2018-02-15 20:14] VITALS: BP 158/81; PULSE 78; TEMP 36.6; O2SAT 95
[2018-02-15] MEDS: ATORVASTATIN 40 MG TAB PO SCH (22:58)
[2018-02-15 23:33] VITALS: BP 162/83; PULSE 74; TEMP 36.6; O2SAT 93
[2018-02-16] VITALS (8 sets, daily range): BP systolic 124–187; BP diastolic 70–92; PULSE 68–87; TEMP 36.4–36.8; O2SAT 94–96
[2018-02-16] MEDS: SODIUM CHLORIDE 0.9% 1000ML 1,000 ML IV SCH ×2 (00:08→08:36)
[2018-02-16 07:12] LABS: BASO % 0.2 %; BASO ABS # 0.01 K/uL (0-0.2); EOS ABS # 0.04 K/uL (0-0.5); HEMATOCRIT 43.1 % (37-47); HEMOGLOBIN 14.6 g/dL (12.0-16.0); IG# 0.01 K/uL (0.00-0.02); LYMPH % 26.2 %; LYMPH ABS # 1.06 K/uL (1.2-3.4); MEAN CELL VOLUME 87.8 fL (80-100); MEAN CORPUSCULAR HEMOGLOBIN 29.7 pg (25-34); MEAN CORPUSCULAR HGB CONC 33.9 g/dl (32-36); MEAN PLATELET VOLUME 9.5 fL (7.4-10.4); MONO % 9.9 %; NEUT % 62.5 %; NEUT ABS # 2.53 K/uL (1.4-6.5); PLATELET COUNT 239 K/uL (130-400); RED CELL DISTRIBUTION WIDTH CV 12.7 % (11.5-14.5); RED CELL DISTRIBUTION WIDTH SD 40.7 fL (36.4-46.3); WHITE BLOOD COUNT 4.05 K/uL (4.8-10.8)
[2018-02-16 07:49] LABS: CALCIUM 9.7 mg/dl (8.5-10.1); CREATININE 0.72 mg/dl (0.60-1.20); POTASSIUM 4.1 mmol/L (3.5-5.1)
[2018-02-16] MEDS: DOXYCYCLINE HYCLATE 100 MG CAP PO SCH ×2 (08:37→16:51)
[2018-02-16] MEDS ORDERED: METOPROLOL SUCC 50MG EXT REL TAB PO STA (09:52)
[2018-02-16] MEDS ORDERED: LISINOPRIL 20 MG TAB PO STA (11:00)
--- NOTE | 2018-02-16 11:18 | Progress Note ---
Subjective Date of Service: Feb 16, 2018. Subjective Pt evaluation today including: conversation w/ patient, conversation w/ family (daughter), physical exam, chart review, lab review, review of studies, conversation w/ home service consultant, review of inpatient medication list Pain: no pain PO Intake: adequate Voiding: no voiding problems discussed with Dr. Izquierdo, appreciate recommendations reviewed labs, normal CBC and BMP reviewed CT head that shows left thalamus stroke reviewed CTA head and neck, mild plaque but no significant stenosis discussed recent history in detail, had a third nerve palsy in left eye, no findings on MRI brain on 02/09 almost a week ago the patient had some confusion, issues with balance, word finding symptoms improved over the week however, kept complaining that she just "didn't feel like myself" Dr. Izquierdo would like to repeat MRI brain today because there are no symptoms of a left thalamus stroke, no right sided symptoms continue Xarelto for atrial fibrillation try to achieve better blood pressure control Problem List Medical Problems: (1) CVA (cerebral vascular accident) Status: Acute (2) New onset atrial fibrillation Status: Acute (3) Third nerve palsy of left eye Status: Acute Review of Systems Eyes: + diplopia (when using both eyes) Neurologic: + balance problems (earlier in the week) All Other Systems: Reviewed and Negative Medications Current Inpatient Medications Medications (Trade) Dose Ordered Sig/Adriana Route Start Time Stop Time Status Last Admin Dose Admin Ioversol (Optiray 320) 100 ml UD PRN IV 02/15/18 09:00 02/19/18 08:59 Atorvastatin Calcium (Lipitor Tab) 40 mg HS PO 02/15/18 21:00 03/17/18 20:59 02/15/18 22:58 40 MG Miscellaneous Information (Pharmacist Discharge Med Rec Consult) 1 ea UD PRN N/A 02/15/18 11:15 03/17/18 11:14 Sodium Chloride 1,000 ml @ 100 mls/hr Q10H IV 02/15/18 13:20 03/17/18 13:19 02/16/18 08:36 100 MLS/HR Doxycycline Hyclate (Vibramycin Cap) 100 mg BID PO 02/16/18 09:00 02/18/18 09:01 02/16/18 08:37 100 MG Doxycycline Hyclate (Vibramycin Cap) 100 mg BID PO 02/16/18 09:00 02/26/18 08:59 UNV Metoprolol Succinate (Toprol Xl Tab) 50 mg QAM PO 02/17/18 09:00 03/19/18 08:59 Rivaroxaban (Xarelto Tab) 20 mg DAILY PO 02/17/18 09:00 03/19/18 08:59 Objective Vital Signs Date Time Temp Pulse Resp B/P (MAP) Pulse Ox O2 Delivery O2 Flow Rate FiO2 02/16/18 08:38 187/80 (115) 02/16/18 07:13 36.6 87 18 184/92 (122) 95 Room Air 02/16/18 04:20 36.6 68 95 167/91 (116) 95 Room Air 02/15/18 23:33 36.6 74 18 162/83 (109) 93 Room Air 02/15/18 20:14 36.6 78 17 158/81 (106) 95 Room Air 02/15/18 20:00 95 Room Air 02/15/18 16:00 94 Room Air 02/15/18 15:58 36.5 76 18 151/83 (105) 94 Room Air 02/15/18 12:52 36.7 19 174/84 96 Room Air 02/15/18 12:33 74 19 161/73 96 Room Air 02/15/18 12:30 36.2 78 22 151/80 96 02/15/18 12:02 151/80 02/15/18 11:55 78 22 96 02/15/18 11:31 168/80 02/15/18 11:25 76 24 96 02/15/18 11:06 78 18 150/87 96 Room Air 02/15/18 11:02 150/87 02/15/18 10:55 83 20 96 Physical Exam General Appearance: WD/WN, no apparent distress Eyes: normal inspection, EOMI (left eye crosses midline medially, not completely, double vision), sclerae normal ENT: normal ENT inspection, hearing grossly normal, pharynx normal Neck: supple, no adenopathy, no JVD, trachea midline Respiratory/Chest: chest non-tender, lungs clear, normal breath sounds, no respiratory distress, no accessory muscle use Cardiovascular: no edema, no gallop, no JVD, no murmur, + tachycardia, + irregularly irregular Abdomen: normal bowel sounds, non tender, soft, no organomegaly Extremities: normal range of motion, non-tender, normal inspection, no pedal edema, no calf tenderness, normal capillary refill, pelvis stable Neurologic/Psychiatric: no motor/sensory deficits, alert, normal mood/affect, oriented x 3, + abnormal marking devices assembler II-XII (left eye crosses midline medially, not completely, double vision) Skin: normal color, warm/dry, no rash Laboratory Results Last 24 Hours Test 02/16/18 06:34 White Blood Count 4.05 K/uL Red Blood Count 4.91 M/uL Hemoglobin 14.6 g/dL Hematocrit 43.1 % Mean Corpuscular Volume 87.8 fL Mean Corpuscular Hemoglobin 29.7 pg Mean Corpuscular Hemoglobin Concent 33.9 g/dl Platelet Count 239 K/uL Mean Platelet Volume 9.5 fL Neutrophils (%) (Auto) 62.5 % Lymphocytes (%) (Auto) 26.2 % Monocytes (%) (Auto) 9.9 % Eosinophils (%) (Auto) 1.0 % Basophils (%) (Auto) 0.2 % Neutrophils # (Auto) 2.53 K/uL Lymphocytes # (Auto) 1.06 K/uL Monocytes # (Auto) 0.40 K/uL Eosinophils # (Auto) 0.04 K/uL Basophils # (Auto) 0.01 K/uL RDW Standard Deviation 40.7 fL RDW Coefficient of Variation 12.7 % Immature Granulocyte % (Auto) 0.2 % Immature Granulocyte # (Auto) 0.01 K/uL Sodium Level 141 mmol/L Potassium Level 4.1 mmol/L Chloride Level 107 mmol/L Carbon Dioxide Level 26 mmol/L Anion Gap 7.0 mmol/L Blood Urea Nitrogen 14 mg/dl Creatinine 0.72 mg/dl Est Creatinine Clear Calc Drug Dose 65.1 ml/min Estimated GFR () 92.3 Estimated GFR (Non- 79.7 BUN/Creatinine Ratio 19.3 Random Glucose 94 mg/dl Calcium Level 9.7 mg/dl Triglycerides Level 72 mg/dl Cholesterol Level 125 mg/dl HDL Cholesterol 34 mg/dl LDL Cholesterol, Calculated 77 mg/dl VLDL Cholesterol, Calculated 14 mg/dl Cholesterol/HDL Ratio 3.7 Assessment and Plan Acute thalamic stroke in a 77 yo female with recent megative stroke workup on 1. Acute to subacute left thalamic stroke symptoms of confusion, word finding, difficulty with balance occurred one week ago and then slowly improved still does not feel herself, very weak and fatigued, dull sensation on her head still with mild left CN III palsy and diplopia but that would be small vessel , no from thalamic stroke will repeat MRI brain today to better elucidate the extent of stroke, any other areas? CTA head and neck shows no aneurysms, has mild plaque but no severe stenosis HbA1c at goal, LDL at goal chronic atrial fibrillation but already on Xarelto blood pressure too high in the 180's systolic, continue Toprol 50mg, give a single dose of Lisinopril 20mg now and see how she responds PT/OT and speech consulted, good rehab candidate 2. HTN: too high currently, continue Toprol 50mg, add lisinopril 20mg, monitor for improvement, goal is 140 systolic 3. Chronic persistent A. fib rates in 100's this AM because Toprol held, resume Toprol 50mg now continue Xarelto 4.Asthma: lungs clear, continue Breo elipta 5. acute sinusitits: continue Doxycycline reviewed CT chest findings of diffuse patchy infiltrates? pneumonia? lungs clear, no cough, no dyspnea Full code
--- NOTE | 2018-02-16 11:20 | Neurology Consultation ---
Neurology Consultation Date of Consultation: Feb 16, 2018. Attending Physician: Rayray Douglass D.O. Primary Care Physician: Vlad Leach M.D. Reason for Consultation: Patient is a 77-year-old, who was asked to see the request of Dr. Pierce, for neurologic consultation regarding stroke. History of Present Illness Source: patient, family, caregiver, clinic records, hospital records This patient has a history of migraine headaches starting in preteen years to her later 20s. They have really not been an issue since. The patient has had a history of hypertension on an off more recently but has no other significant heart issues, diabetes, or blood pressure issues until about a year ago when she had atrial fibrillation. She is on Xarelto for this. Overnight from the 08 of February to the she got up in the middle night and was walking into the objects. She woke with double vision. She arrived to the emergency room and was diagnosed with the left 3rd nerve palsy. MRI of the brain was unremarkable. I reviewed this film and it shows some mild generalized atrophy and minimal old small vessel ischemic disease, quite consistent with age. She had no eye pain and had no symptoms in her limbs. She had no speech issues or mentation problems. MR angiography of the head was unremarkable. She saw Dr. Yeh who diagnosed a painless, pupil sparing, partial left 3rd nerve palsy. She was stable February 10. On February 11, she was noted to have hesitancy and trouble with speaking directions. She was fairly fluent with other conversation although she was a little slow in her speech according to her daughter, who is present at bedside. She was not saying nonsense words and she knew what people were saying to her. It was really a word-finding issue specifically with directions. January and , she was stable. The patient woke the morning of the with her head feeling full and dull. She knew she did not feel right but could not be specific. She was not actually confused and did not have a speech problem. She had no new weakness or numbness of the arms and legs. Her vision was the same She arrived to the emergency room February 15 at 0827 hours with a temperature of 36.2, pulse 95 and irregular, respiratory rate 18, blood pressure 181/84, and O2 saturation 95%. She has atrial fibrillation has remained in fib/flutter since she has been in the hospital. On exam in the emergency room she was awake and alert with good speech and no focal neurologic deficits CT scan of the head showed a new left thalamic lesion that was not present 1 week prior. Chest x-ray was unremarkable CT angiography of the head showed no significant vessel stenosis. CT angiography of the neck showed no significant vessel stenosis either but there were some unusual abnormalities at the lung apices bilaterally CBC was unremarkable. Chem profile was unremarkable and glucose was 120. Hemoglobin A1c was 5.8. LDL was 77, cholesterol was 125. This morning, the patient feels better and does not have speech issues, numbness , weakness, or clumsiness. She does not have a headache. Past Medical/Surgical History Medical Problems: (1) CVA (cerebral vascular accident) Status: Acute (2) New onset atrial fibrillation Status: Acute (3) Third nerve palsy of left eye Status: Acute Atrial fibrillation for 1 year on Xarelto History of hypertension Left painless, pupil sparing, partial 3rd nerve palsy occurring 1 week ago. New left thalamic lesion by CT scan not present 1 week ago. Remote history of migraines History of bilateral cataract surgery, tubal ligation, and hysterectomy. Family History Mother age 78 of metastatic breast cancer to the central nervous system. She also had a history of stroke Father age 74 of an [place] Social History Patient smoked cigarettes for year to back in her later 20s. She has not smoked for almost 50 years. Patient does not consume alcohol. 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 She has a 3-year-old son and 250 1-year-old twin daughters. She has 5 grandchildren. Smoking Status: Former smoker Smokeless Tobacco Use: No Alcohol Use: none Drug Use: none Marital Status: Housing Status: lives with family Occupation Status: retired Allergies Coded Allergies: Acetaminophen (Verified Allergy, Severe, ANAPHYLAXIS, 02/15/18) Oxycodone (Verified Allergy, Severe, ANAPHYLAXIS, 02/15/18) Codeine (Verified Allergy, Mild, HIVES, 02/15/18) Penicillins (Verified Allergy, Mild, ANAPHYLAXIS, 02/15/18) Current Inpatient Medications Current Inpatient Medications Medications (Trade) Dose Ordered Sig/Adriana Route Start Time Stop Time Status Last Admin Dose Admin Ioversol (Optiray 320) 100 ml UD PRN IV 02/15/18 09:00 02/19/18 08:59 Atorvastatin Calcium (Lipitor Tab) 40 mg HS PO 02/15/18 21:00 03/17/18 20:59 02/15/18 22:58 40 MG Miscellaneous Information (Pharmacist Discharge Med Rec Consult) 1 ea UD PRN N/A 02/15/18 11:15 03/17/18 11:14 Sodium Chloride 1,000 ml @ 100 mls/hr Q10H IV 02/15/18 13:20 03/17/18 13:19 02/16/18 08:36 100 MLS/HR Doxycycline Hyclate (Vibramycin Cap) 100 mg BID PO 02/16/18 09:00 02/18/18 09:01 02/16/18 08:37 100 MG Doxycycline Hyclate (Vibramycin Cap) 100 mg BID PO 02/16/18 09:00 02/26/18 08:59 UNV Metoprolol Succinate (Toprol Xl Tab) 50 mg QAM PO 02/17/18 09:00 03/19/18 08:59 Rivaroxaban (Xarelto Tab) 20 mg DAILY PO 02/17/18 09:00 03/19/18 08:59 Review of Systems Constitutional: + fatigue, No weakness Eyes: + diplopia, No eye pain ENT: No hearing loss, No sore throat, No tinnitus, No trouble swallowing Respiratory: No cough, No shortness of breath Cardiovascular: No chest pain, No palpitations Abdomen: No pain, No nausea Musculoskeletal: No joint pain, No muscle pain Genitourinary - Female: No dysuria, No urinary incontinence Neurologic: + balance problems, No memory loss, No weakness, No numbness/ tingling, No vertigo Psychiatric: No depression symptoms, No anxiety Endocrine: + fatigue Hematologic / Lymphatic: No abnormal bleeding/bruising Integumentary: No rash Allergic / Immunologic: No hives Physical Exam Vital Signs (Past 24 Hrs): Date Time Temp Pulse Resp B/P (MAP) Pulse Ox O2 Delivery O2 Flow Rate FiO2 02/16/18 08:38 187/80 (115) 02/16/18 07:13 36.6 87 18 184/92 (122) 95 Room Air 02/16/18 04:20 36.6 68 95 167/91 (116) 95 Room Air 02/15/18 23:33 36.6 74 18 162/83 (109) 93 Room Air 02/15/18 20:14 36.6 78 17 158/81 (106) 95 Room Air 02/15/18 20:00 95 Room Air 02/15/18 16:00 94 Room Air 02/15/18 15:58 36.5 76 18 151/83 (105) 94 Room Air 02/15/18 12:52 36.7 19 174/84 96 Room Air 02/15/18 12:33 74 19 161/73 96 Room Air 02/15/18 12:30 36.2 78 22 151/80 96 02/15/18 12:02 151/80 02/15/18 11:55 78 22 96 02/15/18 11:31 168/80 02/15/18 11:25 76 24 96 02/15/18 11:06 78 18 150/87 96 Room Air 02/15/18 11:02 150/87 Patient is right-handed. The patient is awake and alert. Speech is normal without aphasia or dysarthria. Mentation and thought processes are intact with full orientation and normal fund of knowledge. Mood and affect are normal and appropriate. Appearance and grooming are normal. Long and short-term memory are intact to conversation. The discs are sharp with positive venous pulsations. There are no exudates, hemorrhages, or blood vessel changes seen. Pupils are 3mm bilaterally and reactive to light. Patient has decreased ability to fully adduct the left eye. She can pull at about 2/[address] midline which is a reported improvement from 1 week ago when she could not get past midline. There is no nystagmus. She has good up and down gaze and abducts the left eye normally. The right eye has full range of motion. Visual acuity and visual matos seem normal grossly to confrontation. There are no deficits to sensation of the face bilaterally. Corneal reflexes are positive bilaterally. Facial strength and symmetry is normal bilaterally. Hearing seems intact grossly to voice and finger rub. Palate moves well without asymmetry. There is normal sternocleidomastoid and trapezius strength bilaterally. Tongue is midline with good strength bilaterally. Neck is with full range of motion without discomfort. There are no cervical bruits. There are no cranial or ocular bruits. Heart is without murmur. Cervical, thoracic, and lumbar spine are nontender to palpation. Stance with feet together is reasonable eyes open. She is narrow based but is a little off balance with turns. With outstretched arms there is no drift. There are no resting, postural, or action tremors. There is no ataxia with [id number] testing. There is good facility in the hands. There are no abnormal involuntary movements noted. Motor strength is 5/5 diffusely in the arms bilaterally including deltoids, biceps, brachioradialis, wrist flexors and extensors, devulcanizer operator, and intrinsic hand muscles. Motor strength is 5/5 diffusely in the legs bilaterally including hip flexors, quadriceps, hamstring, gastrocnemius, tibialis anterior, tibialis posterior, and peroneii muscles bilaterally. Toe extensors are normal and there is good bulk in the extensor digitorum brevis muscle bilaterally. The limbs have good tone without rigidity or spasticity, and there is no atrophy noted. Muscle bulk is normal, there is no tenderness, no myotonia noted to percussion, and no fasciculations seen. Sensory examination is intact to pin and touch throughout all four limbs. Reflexes are 2/4 in the biceps, triceps, brachioradialis, and quadriceps tendons bilaterally. Achilles tendon reflexes are absent bilaterally. Toes are downgoing with plantar stimulation bilaterally. Peripheral pulses are present and of normal quality distally in all four limbs. There is no peripheral edema noted. Laboratory Results Past 24 Hours: 02/16/18 06:34 Red Blood Count 4.91, Mean Corpuscular Volume 87.8, Mean Corpuscular Hemoglobin 29.7, Mean Corpuscular Hemoglobin Concent 33.9, Mean Platelet Volume 9.5, Neutrophils (%) (Auto) 62.5, Lymphocytes (%) (Auto) 26.2, Monocytes (%) (Auto) 9.9, Eosinophils (%) (Auto) 1.0, Basophils (%) (Auto) 0.2, Neutrophils # (Auto) 2.53, Lymphocytes # (Auto) 1.06, Monocytes # (Auto) 0.40, Eosinophils # (Auto) 0.04, Basophils # (Auto) 0.01 02/16/18 06:34 Test 02/16/18 06:34 White Blood Count 4.05 K/uL (4.8-10.8) Red Blood Count 4.91 M/uL (4.2-5.4) Hemoglobin 14.6 g/dL (12.0-16.0) Hematocrit 43.1 % (37-47) Mean Corpuscular Volume 87.8 fL (80-100) Mean Corpuscular Hemoglobin 29.7 pg (25-34) Mean Corpuscular Hemoglobin Concent 33.9 g/dl (32-36) Platelet Count 239 K/uL (130-400) Mean Platelet Volume 9.5 fL (7.4-10.4) Neutrophils (%) (Auto) 62.5 % Lymphocytes (%) (Auto) 26.2 % Monocytes (%) (Auto) 9.9 % Eosinophils (%) (Auto) 1.0 % Basophils (%) (Auto) 0.2 % Neutrophils # (Auto) 2.53 K/uL (1.4-6.5) Lymphocytes # (Auto) 1.06 K/uL (1.2-3.4) Monocytes # (Auto) 0.40 K/uL (0.11-0.59) Eosinophils # (Auto) 0.04 K/uL (0-0.5) Basophils # (Auto) 0.01 K/uL (0-0.2) RDW Standard Deviation 40.7 fL (36.4-46.3) RDW Coefficient of Variation 12.7 % (11.5-14.5) Immature Granulocyte % (Auto) 0.2 % Immature Granulocyte # (Auto) 0.01 K/uL (0.00-0.02) Anion Gap 7.0 mmol/L (3-11) Est Creatinine Clear Calc Drug Dose 65.1 ml/min Estimated GFR () 92.3 Estimated GFR (Non- 79.7 BUN/Creatinine Ratio 19.3 (10-20) Calcium Level 9.7 mg/dl (8.5-10.1) Triglycerides Level 72 mg/dl (0-150) Cholesterol Level 125 mg/dl (0-200) HDL Cholesterol 34 mg/dl LDL Cholesterol, Calculated 77 mg/dl VLDL Cholesterol, Calculated 14 mg/dl Cholesterol/HDL Ratio 3.7 Imaging HEAD WITHOUT CONTRAST (CT) CLINICAL HISTORY: 77 years-old Female with Stroke. Acute strokelike symptoms TECHNIQUE: Multiple axial CT images of the head were obtained without contrast. A dose lowering technique was utilized adhering to the principles of ALARA. COMPARISON: CTA head and neck of same day, CT head 02/09/2018, brain MRI 02/09/2018. FINDINGS: No acute intracranial hemorrhage, midline shift, intracranial mass, hydrocephalus, or abnormal extra-axial collection. Ill-defined area of low-attenuation is noted about the superior aspect of the left thalamus, 1.4 x 0.8 cm on image 1:15 of series 301 Mild brain atrophy. Ill-defined low-attenuation about the periventricular white matter suggests chronic microvascular ischemic changes. The calvarium is intact. Mastoid air cells and middle ear cavities are clear. Mild leftward bowing and spurring of the nasal septum. Moderate mucosal thickening of the sphenoid sinuses with air-fluid levels. Mild ethmoid sinus disease. Soft tissues and orbits are unremarkable. Note is made of disconjugate gaze. IMPRESSION: 1.4 x 0.8 cm area of low-attenuation about the left thalamus is new from comparison study suggesting acute infarction. No intracranial hemorrhage, midline shift or significant mass effect. The above report was generated using voice recognition software. It may contain grammatical, syntax or spelling errors. Electronically signed by: Fuad Peterson M.D. 02/15/2018 9:55 AM Impression 1. New onset left thalamic lacunar type stroke. This is seen on CT scan yesterday, not present 1 week previous. She does not have any clinical symptomatology referable to a left thalamic lesion (right-sided sensory deficits or other) The etiology of this typically is ischemic and hypertension would be her main risk factor. Her blood pressure is not totally controlled. I cannot entirely exclude embolic disease, and she is in atrial fibrillation, but she has been on an anticoagulant at proper dosage for 1 year. 2. 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 Typically this is seen in diabetics but is also seen in those with hypertension. I believe it is already starting to improve and these lesions typically will improve nicely over 6-8 weeks. 3. Speech problem 5 days ago of uncertain etiology The patient still believe she occasionally has a speech issue but I noted no aphasia or dysarthria on examination today. 4. Chronic atrial fibrillation on Xarelto 5. Hypertension, not adequately controlled on admission. 6. LDL greater than 70 (77). Plan 1. MRI of the brain, with and without contrast, with attention to brainstem and posterior fossa structures. Compared to the previous study 1 week ago 2. Awaiting echocardiogram results 3. Continue Xarelto and 81 mg aspirin tablet daily. Depending on her clinical course and the MRI results, I may switch her aspirin to clopidogrel 75 mg daily. 4. Given her elevated LDL she is a statin candidate. However, given her total cholesterol of 125 and advancing age, she is not a high-dose statin candidate to me. There is risk of intracranial hemorrhage on high-dose statins and she is already on Xarelto. 5. PT, OT, and speech therapy consult 6. Control blood pressure as you are doing, trying to keep the mean arterial pressure of approximately 100 7. Consider further testing regarding the apical lung lesions seen on CT angiography. I will follow. Overall, I spent a total of 80 minutes with this case including records review and review of MRI films. Direct evaluation the patient at bedside, and discussion of the case with the Dr. Douglass, clinical staff, and the patient and her daughter at bedside including differential diagnosis and treatment options.
[2018-02-16] MEDS ORDERED: NURSING VERBAL MED ORDER ONE (12:15)
--- NOTE | 2018-02-16 13:49 | DIAGNOSTIC IMAGING REPORT ---
BRAIN COMBO HISTORY: 77 years-old Female stroke acute strokelike symptoms with double vision, memory loss and slurred speech COMPARISON: Brain MRI 02/09/2018, CT head and CTA head 02/15/2018 TECHNIQUE: Multiplanar multisequence MRI of the brain was obtained both with and without the use of 7 mL Gadavist FINDINGS: Subacute appearing 7 x 4 mm infarction of the left thalamus with increased signal on the diffusion-weighted images and mildly decreased signal on the ADC map with increased T2/FLAIR series. T2 signal abnormality measures up to 12 mm in greatest dimension within this region compatible with associated cytotoxic edema. Mild associated enhancement is also seen within this region. No additional acute or subacute infarction. Midline structures including the corpus callosum, brainstem, optic chiasm, pituitary and pineal glands appear unremarkable on the sagittal T1 series. No cerebellar tonsillar herniation. There is no acute intracranial hemorrhage, midline shift, abnormal extra-axial collections, hydrocephalus or intracranial mass. Multiple punctate foci of T2/FLAIR prolongation about the subcortical, deep and periventricular white matter suggests chronic microvascular ischemic changes. Mild age-related atrophy. No additional abnormal intra-axial or extra-axial enhancement. Moderate mucosal thickening with air-fluid levels within the sphenoid sinuses. The major flow voids appear patent. Orbits are unremarkable. Skull and soft tissues are within normal limits. IMPRESSION: 1. Confirmation of the infarction involving the left thalamus which measures up to 7 mm and demonstrates signal characteristics compatible with a subacute event. 2. No acute intracranial hemorrhage, midline shift or abnormal extra-axial collections. 3. Atrophy with chronic microvascular ischemic changes. 4. Moderate acute sphenoid sinus disease. The above report was generated using voice recognition software. It may contain grammatical, syntax or spelling errors. Electronically signed by: Fuad Peterson M.D. 02/16/2018 1:48 PM Dictated Date/Time: 02/16/2018 1:41 PM
[2018-02-16] MEDS: RIVAROXABAN 20 MG TAB PO SCH (16:51)
[2018-02-16] MEDS: ATORVASTATIN 40 MG TAB PO SCH (21:42)
[2018-02-17] VITALS (7 sets, daily range): BP systolic 114–173; BP diastolic 61–84; PULSE 61–100; TEMP 36.4–36.9; O2SAT 93–96
[2018-02-17 07:03] LABS: BASO % 0.3 %; BASO ABS # 0.01 K/uL (0-0.2); EOS % 1.4 %; EOS ABS # 0.05 K/uL (0-0.5); HEMATOCRIT 42.4 % (37-47); HEMOGLOBIN 14.2 g/dL (12.0-16.0); LYMPH ABS # 0.84 K/uL (1.2-3.4); MEAN CELL VOLUME 88.1 fL (80-100); MEAN CORPUSCULAR HEMOGLOBIN 29.5 pg (25-34); MEAN CORPUSCULAR HGB CONC 33.5 g/dl (32-36); MEAN PLATELET VOLUME 9.6 fL (7.4-10.4); MONO % 7.7 %; MONO ABS # 0.28 K/uL (0.11-0.59); NEUT % 67.6 %; NEUT ABS # 2.48 K/uL (1.4-6.5); PLATELET COUNT 252 K/uL (130-400); RED CELL DISTRIBUTION WIDTH CV 12.7 % (11.5-14.5); RED CELL DISTRIBUTION WIDTH SD 40.7 fL (36.4-46.3); WHITE BLOOD COUNT 3.66 K/uL (4.8-10.8)
[2018-02-17 07:37] LABS: CALCIUM 9.5 mg/dl (8.5-10.1); CREATININE 0.84 mg/dl (0.60-1.20); POTASSIUM 4.5 mmol/L (3.5-5.1)
[2018-02-17] MEDS: METOPROLOL SUCC 50MG EXT REL TAB PO SCH (08:13)
[2018-02-17] MEDS: DOXYCYCLINE HYCLATE 100 MG CAP PO SCH ×2 (08:14→20:48)
[2018-02-17] MEDS ORDERED: LISINOPRIL 20 MG TAB PO SCH (09:00)
[2018-02-17] MEDS ORDERED: RIVAROXABAN 20 MG TAB PO SCH (09:00)
--- NOTE | 2018-02-17 10:54 | Progress Note ---
Subjective Date of Service: Feb 17, 2018. Subjective Pt evaluation today including: conversation w/ patient, conversation w/ family (daughter), physical exam, lab review, review of studies, review of inpatient medication list Pain: no pain PO Intake: adequate Voiding: no voiding problems patient says she just "doesn't feel herself this morning" says it is like this every day now, her blood pressure is noted to be up, she feels better the rest of the day when BP better controlled discussed results of MRI brain with patient and her daughter, answered all questions they asked about Dr. Baumann and opinion from cardiology the patient says that ever since the atrial fibrillation diagnosis she has not felt herself she tried to address this with Dr. Baumann, concerns that he did not understand or hear what she was saying I explained that sometimes atrial fibrillation can make you feel a little different, less energy, or perhaps side effect from Toprol explained that treatment with rate control and anticoagulation is appropriate, that rhythm control medications have more adverse effects encouraged her to follow up with Dr. Baumann and discuss her concerns, I'm sure he would be receptive and listen to her discussed increasing Lisinopril to 20mg twice a day so that she gets a dose this evening, see if her blood pressure is better controlled through the night she and daughter agreed with this plan Problem List Medical Problems: (1) CVA (cerebral vascular accident) Status: Acute (2) New onset atrial fibrillation Status: Acute (3) Third nerve palsy of left eye Status: Acute Review of Systems Constitutional: + weakness Eyes: + diplopia Neurologic: + weakness All Other Systems: Reviewed and Negative Medications Current Inpatient Medications Medications (Trade) Dose Ordered Sig/Adriana Route Start Time Stop Time Status Last Admin Dose Admin Ioversol (Optiray 320) 100 ml UD PRN IV 02/15/18 09:00 02/19/18 08:59 Atorvastatin Calcium (Lipitor Tab) 40 mg HS PO 02/15/18 21:00 03/17/18 20:59 02/16/18 21:42 40 MG Miscellaneous Information (Pharmacist Discharge Med Rec Consult) 1 ea UD PRN N/A 02/15/18 11:15 03/17/18 11:14 Doxycycline Hyclate (Vibramycin Cap) 100 mg BID PO 02/16/18 09:00 02/18/18 09:01 02/17/18 08:14 100 MG Doxycycline Hyclate (Vibramycin Cap) 100 mg BID PO 02/16/18 09:00 02/26/18 08:59 UNV Metoprolol Succinate (Toprol Xl Tab) 50 mg QAM PO 02/17/18 09:00 03/19/18 08:59 02/17/18 08:13 50 MG Rivaroxaban (Xarelto Tab) 20 mg QDD PO 02/16/18 16:45 03/18/18 16:44 02/16/18 16:51 20 MG Lisinopril (Zestril Tab) 20 mg BID PO 02/17/18 21:00 03/19/18 08:59 Objective Vital Signs Date Time Temp Pulse Resp B/P (MAP) Pulse Ox O2 Delivery O2 Flow Rate FiO2 02/17/18 08:00 Room Air 02/17/18 08:00 36.6 100 16 164/83 (110) 95 Room Air 02/17/18 03:40 36.4 61 18 173/84 (113) 95 Room Air 02/16/18 23:38 36.8 73 16 124/70 (88) 96 Room Air 02/16/18 20:00 94 Room Air 02/16/18 19:56 36.8 77 18 144/74 (97) 94 Room Air 02/16/18 16:13 36.7 81 18 153/86 (108) 95 Room Air 02/16/18 11:55 36.4 80 18 163/91 (115) 95 Room Air Physical Exam General Appearance: WD/WN, no apparent distress Eyes: normal inspection, PERRL, EOMI, sclerae normal, + pertinent finding ( diplopia) ENT: normal ENT inspection, hearing grossly normal, pharynx normal Neck: supple, no adenopathy, no JVD, trachea midline Respiratory/Chest: chest non-tender, lungs clear, normal breath sounds, no respiratory distress, no accessory muscle use Cardiovascular: no edema, no gallop, no JVD, no murmur, + irregularly irregular Abdomen: normal bowel sounds, non tender, soft, no organomegaly Extremities: normal range of motion, non-tender, normal inspection, no pedal edema, no calf tenderness, pelvis stable Neurologic/Psychiatric: track inspecting supervisor II-XII nml as tested, no motor/sensory deficits, alert, normal mood/affect, oriented x 3 Skin: normal color, warm/dry, no rash Lymphatic: no adenopathy Laboratory Results Last 24 Hours Test 02/17/18 06:28 White Blood Count 3.66 K/uL Red Blood Count 4.81 M/uL Hemoglobin 14.2 g/dL Hematocrit 42.4 % Mean Corpuscular Volume 88.1 fL Mean Corpuscular Hemoglobin 29.5 pg Mean Corpuscular Hemoglobin Concent 33.5 g/dl Platelet Count 252 K/uL Mean Platelet Volume 9.6 fL Neutrophils (%) (Auto) 67.6 % Lymphocytes (%) (Auto) 23.0 % Monocytes (%) (Auto) 7.7 % Eosinophils (%) (Auto) 1.4 % Basophils (%) (Auto) 0.3 % Neutrophils # (Auto) 2.48 K/uL Lymphocytes # (Auto) 0.84 K/uL Monocytes # (Auto) 0.28 K/uL Eosinophils # (Auto) 0.05 K/uL Basophils # (Auto) 0.01 K/uL RDW Standard Deviation 40.7 fL RDW Coefficient of Variation 12.7 % Immature Granulocyte % (Auto) 0.0 % Immature Granulocyte # (Auto) 0.00 K/uL Sodium Level 139 mmol/L Potassium Level 4.5 mmol/L Chloride Level 106 mmol/L Carbon Dioxide Level 28 mmol/L Anion Gap 5.0 mmol/L Blood Urea Nitrogen 14 mg/dl Creatinine 0.84 mg/dl Est Creatinine Clear Calc Drug Dose 55.7 ml/min Estimated GFR () 76.6 Estimated GFR (Non- 66.1 BUN/Creatinine Ratio 16.4 Random Glucose 98 mg/dl Calcium Level 9.5 mg/dl Assessment and Plan Acute thalamic stroke in a 77 yo female with recent megative stroke workup on 1. Acute to subacute left thalamic stroke symptoms of confusion, word finding, difficulty with balance occurred one week ago and then slowly improved still does not feel herself, very weak and fatigued, dull sensation on her head noticed these symptoms more in the morning when BP elevated, better the rest of the day will change lisinopril to BID to try to provide better BP control early in the morning still with mild left CN III palsy and diplopia but that would be small vessel , no from thalamic stroke MRI brain on 02/16 showed 7mm left thalamic stroke CTA head and neck shows no aneurysms, has mild plaque but no severe stenosis HbA1c at goal, LDL at goal chronic atrial fibrillation but already on Xarelto BP control with Toprol 50mg daily, increase lisinopril to 20mg BID from daily PT/OT and speech consulted, doing well, likely home with home health services 2. HTN: too high in the morning, continue Toprol 50mg, increase lisinopril 20mg to BID, monitor for improvement, goal is 140 systolic 3. Chronic persistent A. fib rates controlled on Toprol 50mg daily continue Xarelto 4.Asthma: lungs clear, continue Breo elipta 5. acute sinusitits: continue Doxycycline reviewed CT chest findings of diffuse patchy infiltrates? pneumonia? lungs clear, no cough, no dyspnea Full code try to d/c to home tomorrow
--- NOTE | 2018-02-17 13:24 | Neurology Progress Notes ---
Neurology Progress Note Date of Service Feb 17, 2018. Subjective The patient feels "off". Unfortunately, she cannot be more specific. She is not in any pain and has no headache. She has no weakness or numbness of the arms or legs or clumsiness. She still has the double vision with the left eye as before. Nursing reports no new events. Echocardiogram was unremarkable MRI of the brain showed a 7 millimeter left thalamic stroke with no other significant abnormalities. There was moderate atrophy in general consistent with age and mild old, nonspecific ischemic disease. Objective Date Time Temp Pulse Resp B/P (MAP) Pulse Ox O2 Delivery O2 Flow Rate FiO2 02/17/18 12:12 36.6 71 18 145/79 (101) 93 Room Air 02/17/18 08:00 Room Air 02/17/18 08:00 36.6 100 16 164/83 (110) 95 Room Air 02/17/18 03:40 36.4 61 18 173/84 (113) 95 Room Air 02/16/18 23:38 36.8 73 16 124/70 (88) 96 Room Air 02/16/18 20:00 94 Room Air 02/16/18 19:56 36.8 77 18 144/74 (97) 94 Room Air 02/16/18 16:13 36.7 81 18 153/86 (108) 95 Room Air Last 24 Hours Test 02/17/18 06:28 White Blood Count 3.66 K/uL Red Blood Count 4.81 M/uL Hemoglobin 14.2 g/dL Hematocrit 42.4 % Mean Corpuscular Volume 88.1 fL Mean Corpuscular Hemoglobin 29.5 pg Mean Corpuscular Hemoglobin Concent 33.5 g/dl Platelet Count 252 K/uL Mean Platelet Volume 9.6 fL Neutrophils (%) (Auto) 67.6 % Lymphocytes (%) (Auto) 23.0 % Monocytes (%) (Auto) 7.7 % Eosinophils (%) (Auto) 1.4 % Basophils (%) (Auto) 0.3 % Neutrophils # (Auto) 2.48 K/uL Lymphocytes # (Auto) 0.84 K/uL Monocytes # (Auto) 0.28 K/uL Eosinophils # (Auto) 0.05 K/uL Basophils # (Auto) 0.01 K/uL RDW Standard Deviation 40.7 fL RDW Coefficient of Variation 12.7 % Immature Granulocyte % (Auto) 0.0 % Immature Granulocyte # (Auto) 0.00 K/uL Sodium Level 139 mmol/L Potassium Level 4.5 mmol/L Chloride Level 106 mmol/L Carbon Dioxide Level 28 mmol/L Anion Gap 5.0 mmol/L Blood Urea Nitrogen 14 mg/dl Creatinine 0.84 mg/dl Est Creatinine Clear Calc Drug Dose 55.7 ml/min Estimated GFR () 76.6 Estimated GFR (Non- 66.1 BUN/Creatinine Ratio 16.4 Random Glucose 98 mg/dl Calcium Level 9.5 mg/dl Imaging: BRAIN COMBO HISTORY: 77 years-old Female stroke acute strokelike symptoms with double vision, memory loss and slurred speech COMPARISON: Brain MRI 02/09/2018, CT head and CTA head 02/15/2018 TECHNIQUE: Multiplanar multisequence MRI of the brain was obtained both with and without the use of 7 mL Gadavist FINDINGS: Subacute appearing 7 x 4 mm infarction of the left thalamus with increased signal on the diffusion-weighted images and mildly decreased signal on the ADC map with increased T2/FLAIR series. T2 signal abnormality measures up to 12 mm in greatest dimension within this region compatible with associated cytotoxic edema. Mild associated enhancement is also seen within this region. No additional acute or subacute infarction. Midline structures including the corpus callosum, brainstem, optic chiasm, pituitary and pineal glands appear unremarkable on the sagittal T1 series. No cerebellar tonsillar herniation. There is no acute intracranial hemorrhage, midline shift, abnormal extra-axial collections, hydrocephalus or intracranial mass. Multiple punctate foci of T2/FLAIR prolongation about the subcortical, deep and periventricular white matter suggests chronic microvascular ischemic changes. Mild age-related atrophy. No additional abnormal intra-axial or extra-axial enhancement. Moderate mucosal thickening with air-fluid levels within the sphenoid sinuses. The major flow voids appear patent. Orbits are unremarkable. Skull and soft tissues are within normal limits. IMPRESSION: 1. Confirmation of the infarction involving the left thalamus which measures up to 7 mm and demonstrates signal characteristics compatible with a subacute event. 2. No acute intracranial hemorrhage, midline shift or abnormal extra-axial collections. 3. Atrophy with chronic microvascular ischemic changes. 4. Moderate acute sphenoid sinus disease. The above report was generated using voice recognition software. It may contain grammatical, syntax or spelling errors. Electronically signed by: Fuad Peterson M.D. 02/16/2018 1:48 PM Exam: She is awake and alert. Speech is normal without aphasia or dysarthria. Mood and affect are normal appropriate. Thought processes are intact. She has good long and short-term memory. There is no facial droop. Tongue is midline. Left eye does not fully abduct as before. With outstretched arms there is no drift. There is no resting, postural, or action tremor. Strength is symmetrical in the limbs. Current Inpatient Medications Medications (Trade) Dose Ordered Sig/Adriana Route Start Time Stop Time Status Last Admin Dose Admin Ioversol (Optiray 320) 100 ml UD PRN IV 02/15/18 09:00 02/19/18 08:59 Atorvastatin Calcium (Lipitor Tab) 40 mg HS PO 02/15/18 21:00 03/17/18 20:59 02/16/18 21:42 40 MG Miscellaneous Information (Pharmacist Discharge Med Rec Consult) 1 ea UD PRN N/A 02/15/18 11:15 03/17/18 11:14 Doxycycline Hyclate (Vibramycin Cap) 100 mg BID PO 02/16/18 09:00 02/18/18 09:01 02/17/18 08:14 100 MG Doxycycline Hyclate (Vibramycin Cap) 100 mg BID PO 02/16/18 09:00 02/26/18 08:59 UNV Metoprolol Succinate (Toprol Xl Tab) 50 mg QAM PO 02/17/18 09:00 03/19/18 08:59 02/17/18 08:13 50 MG Rivaroxaban (Xarelto Tab) 20 mg QDD PO 02/16/18 16:45 03/18/18 16:44 02/16/18 16:51 20 MG Lisinopril (Zestril Tab) 20 mg BID PO 02/17/18 21:00 03/19/18 08:59 Impression 1. New onset left thalamic lacunar type stroke. This was not present one-week previous by CT scan but was seen on admission and is delineated on the most recent MRI. Interestingly, she does not have any clinical symptomatology referable to the left thalamic lesion (right-sided sensory deficits or other) -she does feel different in some way although she cannot describe this. I have experience this type of phenomenon with thalamic strokes. The etiology of this typically is ischemic and hypertension would be her main risk factor. Her blood pressure is not totally controlled on admission but is improved currently. I cannot entirely exclude embolic disease, and she is in atrial fibrillation, but she has been on an anticoagulant at proper dosage for 1 year. Echocardiogram was otherwise unremarkable. 2. 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 Typically this is seen in diabetics but is also seen in those with hypertension. I believe it is already starting to improve and these lesions typically will improve nicely over 6-8 weeks. 3. Speech problem 5 days ago of uncertain etiology The patient still believes she occasionally has a speech issue on admission, but I noted no aphasia or dysarthria on examination today. 4. Chronic atrial fibrillation on Xarelto 5. Hypertension, not adequately controlled on admission, but improved today.. 6. LDL greater than 70 (77). Plan 1. Continue Xarelto and 81 mg aspirin tablet daily. 2. Given her elevated LDL she is a statin candidate. However, given her total cholesterol of 125 and advancing age, she is not a high-dose statin candidate to me. There is risk of intracranial hemorrhage on high-dose statins and she is already on Xarelto. 3. PT, OT, and speech therapy consult 4. Control blood pressure as you are doing, trying to keep the mean arterial pressure of approximately 100 5. Consider further testing regarding the apical lung lesions seen on CT angiography. I will follow. I spoke with Dr. Douglass and the patient herself at bedside regarding this case including differential diagnosis and treatment options, and overall spent a total of 25 minutes with this case.
[2018-02-17] MEDS: RIVAROXABAN 20 MG TAB PO SCH (16:07)
[2018-02-17] MEDS: ATORVASTATIN 40 MG TAB PO SCH (20:47)
[2018-02-17] MEDS: LISINOPRIL 20 MG TAB PO SCH (20:47)
[2018-02-18 04:44] VITALS: BP 176/76; PULSE 58; TEMP 36.5; O2SAT 97
[2018-02-18 07:05] LABS: CALCIUM 9.5 mg/dl (8.5-10.1); CREATININE 0.87 mg/dl (0.60-1.20); POTASSIUM 4.3 mmol/L (3.5-5.1)
[2018-02-18 07:11] LABS: BASO % 0.2 %; BASO ABS # 0.01 K/uL (0-0.2); EOS % 1.7 %; EOS ABS # 0.07 K/uL (0-0.5); HEMATOCRIT 41.7 % (37-47); IG# 0.01 K/uL (0.00-0.02); LYMPH % 26.7 %; LYMPH ABS # 1.11 K/uL (1.2-3.4); MEAN CELL VOLUME 88.7 fL (80-100); MEAN CORPUSCULAR HEMOGLOBIN 29.8 pg (25-34); MEAN CORPUSCULAR HGB CONC 33.6 g/dl (32-36); MEAN PLATELET VOLUME 9.8 fL (7.4-10.4); MONO % 7.9 %; MONO ABS # 0.33 K/uL (0.11-0.59); NEUT % 63.3 %; NEUT ABS # 2.63 K/uL (1.4-6.5); PLATELET COUNT 250 K/uL (130-400); RED CELL DISTRIBUTION WIDTH SD 41.8 fL (36.4-46.3); WHITE BLOOD COUNT 4.16 K/uL (4.8-10.8)
[2018-02-18 07:14] VITALS: BP 155/83; PULSE 102; TEMP 36.6; O2SAT 96
[2018-02-18] MEDS: DOXYCYCLINE HYCLATE 100 MG CAP PO SCH (08:18)
[2018-02-18] MEDS: METOPROLOL SUCC 50MG EXT REL TAB PO SCH (08:19)
[2018-02-18] MEDS: LISINOPRIL 20 MG TAB PO SCH (08:19)
--- NOTE | 2018-02-18 09:37 | Neurology Progress Notes ---
Neurology Progress Note Date of Service Feb 18, 2018. Subjective The patient feels better today. She is a little less foggy thinking in her balance is better. She believes her vision issues are roughly the same which is better than they were prior to admission. CBC and Chem profile were unremarkable Blood pressure was better overnight. Objective Date Time Temp Pulse Resp B/P (MAP) Pulse Ox O2 Delivery O2 Flow Rate FiO2 02/18/18 08:00 Room Air 02/18/18 07:14 36.6 102 19 155/83 (107) 96 Room Air 02/18/18 04:44 36.5 58 17 176/76 (109) 97 Room Air 02/17/18 23:30 36.6 67 15 131/61 (84) 96 Room Air 02/17/18 20:03 36.5 81 17 134/75 (94) 96 Room Air 02/17/18 20:00 Room Air 02/17/18 15:32 36.9 73 16 114/72 (86) 96 02/17/18 15:09 36.4 83 18 130/79 (96) 96 Room Air 02/17/18 12:12 36.6 71 18 145/79 (101) 93 Room Air Last 24 Hours Test 02/18/18 05:56 White Blood Count 4.16 K/uL Red Blood Count 4.70 M/uL Hemoglobin 14.0 g/dL Hematocrit 41.7 % Mean Corpuscular Volume 88.7 fL Mean Corpuscular Hemoglobin 29.8 pg Mean Corpuscular Hemoglobin Concent 33.6 g/dl Platelet Count 250 K/uL Mean Platelet Volume 9.8 fL Neutrophils (%) (Auto) 63.3 % Lymphocytes (%) (Auto) 26.7 % Monocytes (%) (Auto) 7.9 % Eosinophils (%) (Auto) 1.7 % Basophils (%) (Auto) 0.2 % Neutrophils # (Auto) 2.63 K/uL Lymphocytes # (Auto) 1.11 K/uL Monocytes # (Auto) 0.33 K/uL Eosinophils # (Auto) 0.07 K/uL Basophils # (Auto) 0.01 K/uL RDW Standard Deviation 41.8 fL RDW Coefficient of Variation 13.0 % Immature Granulocyte % (Auto) 0.2 % Immature Granulocyte # (Auto) 0.01 K/uL Sodium Level 140 mmol/L Potassium Level 4.3 mmol/L Chloride Level 104 mmol/L Carbon Dioxide Level 30 mmol/L Anion Gap 6.0 mmol/L Blood Urea Nitrogen 16 mg/dl Creatinine 0.87 mg/dl Est Creatinine Clear Calc Drug Dose 53.7 ml/min Estimated GFR () 73.4 Estimated GFR (Non- 63.4 BUN/Creatinine Ratio 18.6 Random Glucose 102 mg/dl Calcium Level 9.5 mg/dl Exam: She is awake and alert. Speech is without aphasia or dysarthria. Mood is normal and affect is appropriate. Thought processes are intact and she follows one-step commands well. The left eye can adduct about 2[address] has normal up and down gaze. Abduction is normal as well. She has no nystagmus. There is no facial droop. There is no abnormal sensations or sensory deficits to the face or limbs bilaterally. Strength is symmetrical in all 4 limbs, coordination is normal and there are no tremors or ataxia. Gait is improved and stance is better. Current Inpatient Medications Medications (Trade) Dose Ordered Sig/Adriana Route Start Time Stop Time Status Last Admin Dose Admin Ioversol (Optiray 320) 100 ml UD PRN IV 02/15/18 09:00 02/19/18 08:59 Atorvastatin Calcium (Lipitor Tab) 40 mg HS PO 02/15/18 21:00 03/17/18 20:59 02/17/18 20:47 40 MG Miscellaneous Information (Pharmacist Discharge Med Rec Consult) 1 ea UD PRN N/A 02/15/18 11:15 03/17/18 11:14 Doxycycline Hyclate (Vibramycin Cap) 100 mg BID PO 02/18/18 21:00 02/26/18 08:59 Metoprolol Succinate (Toprol Xl Tab) 50 mg QAM PO 02/17/18 09:00 03/19/18 08:59 02/18/18 08:19 50 MG Rivaroxaban (Xarelto Tab) 20 mg QDD PO 02/16/18 16:45 03/18/18 16:44 02/17/18 16:07 20 MG Lisinopril (Zestril Tab) 20 mg BID PO 02/17/18 21:00 03/19/18 08:59 02/18/18 08:19 20 MG Impression 1. New onset left thalamic lacunar type stroke. This was not present one-week previous by CT scan but was seen on admission and is delineated on the most recent MRI. Interestingly, she does not have any clinical symptomatology referable to the left thalamic lesion (right-sided sensory deficits or other) -she does feel different in some way although she cannot describe this. I have experienced this type of phenomenon with thalamic strokes. The etiology of this typically is ischemic and hypertension would be her main risk factor. Her blood pressure is not totally controlled on admission but is improved currently. I cannot entirely exclude embolic disease, and she is in atrial fibrillation, but she has been on an anticoagulant at proper dosage for 1 year. Echocardiogram was otherwise unremarkable. 2. 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 Typically this is seen in diabetics but is also seen in those with hypertension. It is already improving and these lesions typically improve nicely over 6-8 weeks. 3. Speech problem 5 days ago of uncertain etiology The patient still believes she occasionally has a speech issue on admission, but I noted no aphasia or dysarthria on examination today. Again, some cases with thalamic infarct describe dysarthria and speech issues. 4. Chronic atrial fibrillation on Xarelto 5. Hypertension, not adequately controlled on admission, but improved 6. LDL greater than 70 (77). Plan 1. Continue Xarelto and 81 mg aspirin tablet daily. 2. Given her elevated LDL she is a statin candidate. However, given her total cholesterol of 125 and advancing age, she is not a high-dose statin candidate to me. There is risk of intracranial hemorrhage on high-dose statins and she is already on Xarelto. 3. PT, OT, and speech therapy consult 4. Control blood pressure as you are doing, trying to keep the mean arterial pressure of approximately 100 5. Consider further testing regarding the apical lung lesions seen on CT angiography. I have no further neurologic testing or treatment recommendations to make at this time I would be happy to follow as an outpatient. I have spoken with Dr. Douglass regarding this case.
[2018-02-18] MEDS ORDERED: LISI-726 PO (10:07)
[2018-02-18] MEDS ORDERED: LPT40 PO (10:07)
--- NOTE | 2018-02-18 10:15 | Discharge Instructions ---
Discharge Instructions Date of Service Feb 18, 2018. Admission Reason for Admission: Acute Ischemic Stroke Discharge Discharge Diagnosis / Problem: Acute left thalamic stroke, ischemic Discharge Goals Goal(s): Improve function, Improve disease control Activity Recommendations Activity Limitations: resume your previous activity . Instructions / Follow-Up Instructions / Follow-Up Medications: - LISINOPRIL: 20mg twice a day, added for better blood pressure control - LIPITOR: 40mg daily, statin medication intended to lower cholesterol, it also stabilizes plaques and it is proven to decrease risk of future stroke Acute left thalamic stroke per Dr. Izquierdo, the symptoms of not feeling like yourself, confusion, word finding can be consistent with left thalamic stroke will take some time for symptoms to resolve completely continue Toprol, lisinopril, Lipitor, aspirin for secondary stroke prevention can continue home physical and occupational therapy, referral made by case management follow up with Dr. Izquierdo in the clinic in one month Hypertension: blood pressure quite elevated on admission better controlled with lisinopril 20mg twice a day in addition to Toprol follow up with Dr. Leach in one week for hospital follow up and blood pressure check Atrial fibrillation rates are well controlled and appropriately anticoagulated on Xarelto for stroke prevention again, Dr. Izqueirdo does not feel that the stroke was due to atrial fibrillation, more likely small vessel disease and hypertension as we discussed, I trust Dr. Baumann and you are in good hands with his care on follow up, would recommend that you discuss some of your concerns you had from previous visits, I am sure he would be receptive FOLLOW UP - Dr. Leach in one week, call for appointment - Dr. Izquierdo in one month, call for appointment, [phone] - Dr. Baumann as previously scheduled Risk Factors for Stroke: You can reduce your chances of stroke by working with your medical provider to adopt a healthy lifestyle. Some specific ways to lower your chance of stroke are: * If you are a smoker, now is the time to stop smoking cigarettes * If you are diabetic, improve the control of your blood sugars * Avoid excessive amounts of alcohol * Control high blood pressure * Lose weight if you are overweight * Be sure to lead an active lifestyle * Eat a healthy diet low in salt, cholesterol and fat You should know about other risk factors for stroke that you are unable to control. These include: * Age 55 years or older * Male gender * Certain racial groups: , or / * Family History of Stroke, Mini stroke or Heart Attack * Sickle Cell Disease Follow Up: It is important for you to keep your follow up appointments with your medical provider. Current Hospital Diet Patient's current hospital diet: AHA Diet (Heart Healthy) Discharge Diet Recommended Diet: AHA Diet (Heart Healthy) Pending Studies Studies pending at discharge: no Laboratory Results Hemoglobin A1c Test 02/15/18 08:52 Range/Units Estimated Average Glucose 120 mg/dl Hemoglobin A1c 5.8 H 4.5-5.6 % Lipid Panel Test 02/16/18 06:34 Range/Units Triglycerides Level 72 0-150 mg/dl Cholesterol Level 125 0-200 mg/dl HDL Cholesterol 34 mg/dl Cholesterol/HDL Ratio 3.7 LDL Cholesterol, Calculated 77 mg/dl Medical Emergencies . Who to Call and When: Medical Emergencies: Call 911 immediately if you experience any of the following warning signs and symptoms of Stroke: * Sudden numbness or weakness of the face, arm or leg, especially on one side of the body * Sudden confusion, trouble speaking or understanding * Sudden trouble seeing in one or both eyes * Sudden trouble walking, dizziness, loss of balance or coordination * Sudden severe headache with no cause Do not delay calling 911 if you experience any warning signs or symptoms of a stroke. Delay in seeking medical attention may affect what treatments can be given to you. . Non-Emergent Contact Non-Emergency issues call your: Primary Care Provider, Neurologist Call Non-Emergent contact if: you have any medication questions . . "Provider Documentation" section prepared by Rayray Douglass. . Stroke Core Measures Reason no t-PA for Stroke: Treatment not indicated Reason no antithrom by day 2: Treatment provided - N/A Reason no antithrom at D/C: Treatment provided - N/A Reason no statin at D/C: Treatment provided - N/A Reason no anticoag w/a fib: Treatment provided - N/A [place] Drug Monitoring Program Search Results: no issues identified
[2018-02-18 10:33] VITALS: BP 155/83; PULSE 102; TEMP 36.6; O2SAT 96
--- NOTE | 2018-02-18 11:51 | Pharmacy Progress Note ---
Pharmacist Stroke Counseling Date of Service Feb 18, 2018. Scope Pharmacy has been consulted to provide medication discharge counseling for this patient admitted with ischemic stroke/hemorrhagic stroke/ transient ischemic attack as per the Pharmacist Discharge Counseling for Stroke Patients Protocol. Medications on Discharge New Medications: Atorvastatin (Lipitor) 40 Mg Tab 40 MG PO HS, #30 TAB 3 Refills Lisinopril (Lisinopril) 20 Mg Tab 20 MG PO BID, #60 TAB 3 Refills Continued Medications: Aspirin (Aspirin Ec) 81 Mg Tab 81 MG PO DAILY Doxycycline Hyclate (Doxycycline Hyclate) 100 Mg Tab 100 MG PO BID Fluticasone Furoate-Vilanterol (Breo Ellipta) 1 Inh Inh 1 PUFF INH DAILY Metoprolol Succinate (Toprol Xl) 50 Mg Tabcr 50 MG PO DAILY Rivaroxaban (Xarelto) 20 Mg Tab 20 MG PO DAILY Action The above medications, specifically ones for stroke treatment/prophylaxis, have been reviewed in detail with the patient and/or patient sales and merchandising representative(s) prior to discharge. This includes indication, common adverse reactions, drug interactions, and medication administration. Medication counseling has been employed using the teach-back method to ensure understanding. Outcome The patient and/or patient sales and merchandising representative(s) have demonstrated understanding of the medications. Please note, they are aware that the pharmacist will call them within 72 hours post-discharge to confirm that the appropriate medications are being taken and answer any further medication related questions the patient might have at that time. Contact information Individual to be contacted: December Relationship to patient (if applicable): self Phone number: [phone] Best time to call: 0830 Additional comments: If patient does not answer, please call her daughter (Marielle Arias) at [phone]. Thank you for allowing pharmacy to be involved in the care of this patient. Please call [phone] or [phone] with any additional questions
[2018-02-18] MEDS ORDERED: DOXYCYCLINE HYCLATE 100 MG CAP PO SCH (21:00)
--- NOTE | 2018-02-20 11:40 | Discharge Summary ---
Discharge Summary Date of Service Feb 18, 2018. Discharge Summary Admission Date: Feb 15, 2018 at 11:21 Discharge Date: Feb 18, 2018 Discharge Disposition: Home with services Principal Diagnosis: Left thalamic stroke, acute, ischemic Problems/Secondary Diagnoses: Left CN III palsy, ischemia Atrial fibrillation Hypertension Immunizations: Have You Had Influenza Vaccine: Yes History of Tetanus Vaccine?: Yes History of Pneumococcal: Yes History of Hepatitis B Vaccine: Yes Procedures: none Consultations: Neurology Medication Reconciliation New Medications: Atorvastatin (Lipitor) 40 Mg Tab 40 MG PO HS, #30 TAB 3 Refills Lisinopril (Lisinopril) 20 Mg Tab 20 MG PO BID, #60 TAB 3 Refills Continued Medications: Aspirin (Aspirin Ec) 81 Mg Tab 81 MG PO DAILY Doxycycline Hyclate (Doxycycline Hyclate) 100 Mg Tab 100 MG PO BID Fluticasone Furoate-Vilanterol (Breo Ellipta) 1 Inh Inh 1 PUFF INH DAILY Metoprolol Succinate (Toprol Xl) 50 Mg Tabcr 50 MG PO DAILY Rivaroxaban (Xarelto) 20 Mg Tab 20 MG PO DAILY Discharge Exam Patient feeling better, BP better controlled in the morning on the Lisinopril 20mg BID. D/w Dr. Izquierdo, some of her symptoms of feeling unwell and "not herself " can be attributed to the thalamic stroke. Discussed discharge plans with patient and her daughter in detail, all questions answered. Review of Systems: Constitutional: No fever, No chills, No sweats, No weight loss, No weakness , No fatigue, No problem reported Eyes: + diplopia, No worsening of vision, No eye pain, No redness, No discharge, No problem reported ENT: No hearing loss, No unusual epistaxis, No nasal symptoms, No sore throat, No tinnitus, No dental problems, No trouble swallowing, No problem reported Respiratory: No cough, No sputum, No wheezing, No shortness of breath, No dyspnea on exertion, No dyspnea at rest, No hemoptysis, No problem reported Cardiovascular: No chest pain, No orthopnea, No PND, No edema, No claudication, No palpitations, No problem reported Abdomen: No pain, No nausea, No vomiting, No diarrhea, No constipation, No GI bleeding, No problem reported Musculoskeletal: No joint pain, No muscle pain, No swelling, No calf pain, No problem reported Genitourinary - Female: No dysuria, No urinary frequency, No urinary urgency , No urinary incontinence, No urinary retention, No hematuria Neurologic: + weakness, No memory loss, No paralysis, No numbness/tingling, No vertigo, No balance problems, No problem reported Psychiatric: No depression symptoms, No anhedonism, No anxiety, No insomnia , No substance abuse, No problem reported Endocrine: No fatigue, No excessive thirst, No excessive urination, No problem reported Hematologic / Lymphatic: No abnormal bleeding/bruising, No clotting problems , No swollen lymph nodes, No night sweats, No problem reported Integumentary: No rash, No itch, No new/changing skin lesions, No color change, No bleeding, No problem reported Physical Exam: General Appearance: WD/WN, no apparent distress Eyes: normal inspection, PERRL, EOMI (left eye moving well, normal), sclerae normal ENT: normal ENT inspection, hearing grossly normal, pharynx normal Neck: supple, no adenopathy, no JVD, trachea midline Respiratory/Chest: chest non-tender, lungs clear, normal breath sounds, no respiratory distress, no accessory muscle use Cardiovascular: no edema, no gallop, no JVD, no murmur, normal peripheral pulses, + irregularly irregular Abdomen / GI: normal bowel sounds, non tender, soft, no organomegaly Extremities: normal inspection, no calf tenderness, normal capillary refill , no pedal edema, normal range of motion, pelvis stable 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 Acute to subacute left thalamic stroke symptoms of confusion, word finding, difficulty with balance occurred one week ago and then slowly improved still does not feel herself, very weak and fatigued, dull sensation on her head further discussion with Dr. Izquierdo, these symptoms can be seen with thalamic stroke, told patient and daughter still with mild left CN III palsy and diplopia but that would be small vessel , no from thalamic stroke MRI brain on 02/16 showed 7mm left thalamic stroke CTA head and neck shows no aneurysms, has mild plaque but no severe stenosis HbA1c at goal, LDL at goal echo with normal EF, no ASD, no thrombus chronic atrial fibrillation but already on Xarelto BP control with Toprol 50mg daily and increased lisinopril to 20mg BID from daily PT/OT and speech consulted, doing well, home with home health services follow up with Dr. Leach in one week, Dr. Izquierdo in one month 2. HTN: too high in the morning, continue Toprol 50mg, increased lisinopril 20mg to BID, BP now improved in the morning 3. Chronic persistent A. fib rates controlled on Toprol 50mg daily continue Xarelto echo normal follow up with Dr. Baumann as previously scheduled 4.Asthma: lungs clear, continue Breo elipta 5. acute sinusitits: continue Doxycycline until outpatient prescription completed reviewed CT chest findings of diffuse patchy infiltrates? pneumonia? lungs clear, no cough, no dyspnea, doubt clinical significance of CT findings Full code d/c to home with home therapy Total Time Spent: Greater than 30 minutes This includes examination of the patient, discharge planning, medication reconciliation, and communication with other providers. Discharge Instructions Please refer to the electronic Patient Visit Report (Discharge Instructions) for additional information. Follow-Up Dr. Leach in one week Dr. Izquierdo in one month Eye doctor as previously scheduled Dr. Baumann as previously scheduled Additional Copies To Vlad Leach M.D.; Myla Izquierdo M.D.
--- NOTE | 2018-02-20 15:00 | ECHOCARDIOGRAM REPORT ---
*NOTICE TO RECEIVING CONSTITUTION PARTY AGENCY This information is strictly Confidential and protected under [place] law. [place] law prohibits you from making any further disclosure of this information unless further disclosure is expressly permitted by the written consent of the person to whom it pertains or is authorized by law. A general authorization for the release of medical or other information is not sufficient for this purpose. Hospital accepts no responsibility if the information is made available to any other person, INCLUDING THE PATIENT. Interpretation Summary * Name: CLARE LILLY Study Date: 02/15/2018 02:38 PM BP: 161/73 mmHg * Patient Location: S238 HR: 85 * : 1940 (M/d/yyyy) Gender: Female Height: 65 in * Age: 77 yrs Ethnicity: [place] Weight: 164 lb * Ordering Physician: Abebe Pierce * Referring Physician: Self, Referred * Performed By: Angeles Dunn RCS * * Reason For Study: STROKE * BSA: 1.8 m2 * -- Conclusions -- * 1. Normal LV size, moderate concentric LVH. * 2. LVEF 65-70%. No regional wall motion abnormalities. * 3. Normal RV size and function. * 4. Aortic valve sclerosis without stenosis. * 5. Mild mitral regurgitation. * 6. Normal estimated PA and RA pressures. * 7. No prior studies for comparison. Procedure Details * A complete two-dimensional transthoracic echocardiogram was performed (2D, M-mode, Doppler and color flow Doppler). * A saline contrast injection was performed to assess for cardiac shunting. * The injection was performed through an intravenous line in the right arm. * A total of 20 cc of agitated saline was given. * The attending nurse who injected the saline contrast was DESHAWN LEYVA CPL, RN. Left Ventricle * The left ventricle is grossly normal size. * There is mild concentric left ventricular hypertrophy. * Ejection Fraction = 65-70%. Right Ventricle * The right ventricle is grossly normal size. * The right ventricular systolic function is normal as assessed by tricuspid annular plane systolic excursion (TAPSE) (normal >1.5 cm). Atria * The left atrium is severely dilated. * The right atrium is severely dilated. * Injection of contrast documented no interatrial shunt. Mitral Valve * The mitral valve anatomy is normal. * There is no mitral valve stenosis. * There is mild mitral regurgitation. Tricuspid Valve * There is mild tricuspid regurgitation. * Right ventricular systolic pressure is elevated at 30-40mmHg. Aortic Valve * The aortic valve opens well. * The aortic valve is trileaflet. * Aortic valve sclerosis mild, without significant aortic valvular stenosis. * No hemodynamically significant valvular aortic stenosis. * There is no significant aortic regurgitation. * Trace aortic regurgitation. Pulmonic Valve * The pulmonary valve is inadequately visualized, but the Doppler data is adequate for interpretation. * Pulmonic stenosis is absent. * There is no significant pulmonary regurgitation. Great Vessels * The aortic root and proximal ascending aorta are normal sized. Pericardium/Pleural * There is no pericardial effusion. Great Vessels * Normal inferior vena cava size and collapsability with sniff indicates a normal right atrial pressure of 3 mmHg MMode 2D Measurements and Calculations IVSd 1.3 cm IVSs 1.9 cm LVIDd 3.7 cm LVIDs 2.7 cm LVPWd 1.5 cm LVPWs 1.4 cm IVS/LVPW 0.85 FS 28.0 % EDV(Teich) 59.8 ml ESV(Teich) 26.9 ml EF(Teich) 55.0 % EDV(cubed) 52.5 ml ESV(cubed) 19.6 ml EF(cubed) 62.6 % % IVS thick 41.9 % % LVPW thick -7.01 % LV mass(C)d 197.6 grams LV mass(C)dI 108.7 grams/m\S\2 LV mass(C)s 165.0 grams LV mass(C)sI 90.8 grams/m\S\2 SV(Teich) 32.9 ml SI(Teich) 18.1 ml/m\S\2 SV(cubed) 32.9 ml SI(cubed) 18.1 ml/m\S\2 Ao root diam 2.5 cm Ao root area 5.1 cm\S\2 ACS 1.9 cm LA dimension 4.5 cm LA/Ao 1.8 LVAd ap4 18.7 cm\S\2 LVLd ap4 6.3 cm EDV(MOD-sp4) 48.1 ml EDV(sp4-el) 47.2 ml LVAs ap4 10.0 cm\S\2 LVLs ap4 5.4 cm ESV(MOD-sp4) 16.5 ml ESV(sp4-el) 15.7 ml EF(MOD-sp4) 65.7 % EF(sp4-el) 66.7 % SV(MOD-sp4) 31.6 ml SI(MOD-sp4) 17.4 ml/m\S\2 SV(sp4-el) 31.5 ml SI(sp4-el) 17.3 ml/m\S\2 Doppler Measurements and Calculations MV E max heidi 110.0 cm/sec MV P1/2t max heidi 124.8 cm/sec MV P1/2t 70.5 msec MVA(P1/2t) 3.1 cm\S\2 MV dec slope 518.5 cm/sec\S\2 MV dec time 0.19 sec Ao V2 max 114.5 cm/sec Ao max PG 5.2 mmHg Ao max PG (full) 1.8 mmHg LV V1 max PG 3.4 mmHg LV V1 max 92.2 cm/sec PA V2 max 94.2 cm/sec PA max PG 3.5 mmHg TR max heidi 273.1 cm/sec
--- NOTE | 2018-02-21 12:44 | Pharmacy Progress Note ---
Pharmacist Post D/C Phone Note Date of phone call: Feb 21, 2018. Individual with whom pharmacist spoke to: Marielle (daughter) The following questions were reviewed during the phone call with responses listed below each: Can you tell me the medications that you are currently taking as well as when and how you take each medication? Medications Dose Route/Sig Max Daily Dose Days Date Category Lisinopril 20 Mg Tab 20 Mg PO BID 02/18/18 Rx Lipitor (Atorvastatin Calcium) 40 Mg Tab 40 Mg PO HS 02/18/18 Rx Aspirin Ec (Aspirin) 81 Mg Tab 81 Mg PO DAILY 02/15/18 Reported Toprol Xl (Metoprolol Succinate) 50 Mg Tabcr 50 Mg PO DAILY 02/15/18 Reported Xarelto (Rivaroxaban) 20 Mg Tab 20 Mg PO DAILY 02/15/18 Reported Breo Ellipta (Fluticasone Furoate-Vilanterol) 1 Inh Inh 1 Puff INH DAILY 02/15/18 Reported Doxycycline Hyclate 100 Mg Tab 100 Mg PO BID 02/15/18 Reported When have you missed any doses of your medications? - none (using pill box) What side effects are you having from your medications? - no specific symptoms noted What questions do you have about your medications? - Marielle asked if Lipitor needs to be given at night (she is trying to consolidate medication administration times). I instructed her that Lipitor can be given any time of day. What problems are you having obtaining your medications? - none When is your next appointment with your primary care doctor? - Patient had appt. with Cardiology on 02/20/18 and appt. with PCP on 02/22/18 Additional comments: - Daughter reports that both Dr. Baumann and Dr. Douglass expressed concern with patient taking both ASA and Xarelto. Daughter requested Dr. Baumann determine whether Asha should continue on ASA. As per the Pharmacist Discharge Counseling for Stroke Patients Protocol, this phone call has been completed within 72 hours of discharge. Thank you for allowing us to be involved in the care of this patient.
== END 2018-02-18 12:02 | disposition home health service (06) | DRG 65 ==
LOC: C.EDB 08:26 → C.2T 11:21 → ENRESERV 11:58
PROVIDERS: ADMIT Internal Medicine Sports Medicine; ATTEND Internal Medicine
DX: I63.8 Other cerebral infarction (principal); I48.1 Persistent atrial fibrillation; H49.02 Third [oculomotor] nerve palsy, left eye; H53.2 Diplopia; I67.89 Other cerebrovascular disease; R27.0 Ataxia, unspecified; R47.89 Other speech disturbances; R41.0 Disorientation, unspecified; R41.3 Other amnesia; I10 Essential (primary) hypertension; J45.909 Unspecified asthma, uncomplicated; E78.00 Pure hypercholesterolemia, unspecified; J01.90 Acute sinusitis, unspecified; Z87.891 Personal history of nicotine dependence; Z82.3 Family history of stroke; Z79.01 Long term (current) use of anticoagulants; Z79.2 Long term (current) use of antibiotics; Z79.51 Long term (current) use of inhaled steroids; Z79.82 Long term (current) use of aspirin; Z79.899 Other long term (current) drug therapy; Z88.0 Allergy status to penicillin; Z88.5 Allergy status to narcotic agent; Z88.6 Allergy status to analgesic agent

== ENCOUNTER 2018-03-05 11:26 | Emergency (ER) | payer OTHER ==
[~2018-03-05] VITALS: Ht 170.2 cm; Wt 71.8 kg
[~2018-03-05 11:26] MED LIST changes: +ASPI81TA28 PO; +FLUT1INH INH; +LISI-726 PO; +LPT40 PO; +METO-217 PO; -METO-452 PO; +VBRT100 PO; +XRL20 PO
[2018-03-05 11:29] VITALS: TEMP 36.5; Ht 170.2 cm; Wt 71.8 kg
--- NOTE | 2018-03-05 13:54 | DIAGNOSTIC IMAGING REPORT ---
CHEST ONE VIEW PORTABLE CLINICAL HISTORY: fever dyspnea COMPARISON STUDY: 02/15/2018 FINDINGS: The bones soft tissues and hemidiaphragms are normal. The cardiomediastinal silhouette is normal. The lungs are clear. The pulmonary vasculature is normal. IMPRESSION: Negative chest. The above report was generated using voice recognition software. It may contain grammatical, syntax or spelling errors. Electronically signed by: Munir Ortiz M.D. 03/05/2018 1:53 PM Dictated Date/Time: 03/05/2018 1:52 PM
[2018-03-05 14:10] LABS: BASO % 0.2 %; BASO ABS # 0.01 K/uL (0-0.2); EOS % 0.6 %; EOS ABS # 0.03 K/uL (0-0.5); HEMATOCRIT 43.9 % (37-47); HEMOGLOBIN 15.1 g/dL (12.0-16.0); IG# 0.01 K/uL (0.00-0.02); LYMPH % 16.2 %; LYMPH ABS # 0.87 K/uL (1.2-3.4); MEAN CELL VOLUME 88.9 fL (80-100); MEAN CORPUSCULAR HEMOGLOBIN 30.6 pg (25-34); MEAN CORPUSCULAR HGB CONC 34.4 g/dl (32-36); MEAN PLATELET VOLUME 10.4 fL (7.4-10.4); MONO % 8.2 %; MONO ABS # 0.44 K/uL (0.11-0.59); NEUT % 74.6 %; NEUT ABS # 4.01 K/uL (1.4-6.5); PLATELET COUNT 179 K/uL (130-400); RED CELL DISTRIBUTION WIDTH CV 13.6 % (11.5-14.5); WHITE BLOOD COUNT 5.37 K/uL (4.8-10.8)
[2018-03-05 14:36] LABS: ALBUMIN 3.9 gm/dl (3.4-5.0); ALKALINE PHOSPHATASE 95 U/L (45-117); ALT/SGPT 26 U/L (12-78); AST/SGOT 17 U/L (15-37); BLOOD UREA NITROGEN 15 mg/dl (7-18); CALCIUM 9.9 mg/dl (8.5-10.1); CARBON DIOXIDE 26 mmol/L (21-32); CREATININE 0.85 mg/dl (0.60-1.20); GLUCOSE 96 mg/dl (70-99); POTASSIUM 4.6 mmol/L (3.5-5.1); SODIUM 137 mmol/L (136-145); TOTAL PROTEIN 7.1 gm/dl (6.4-8.2)
[2018-03-05] MEDS ORDERED: ONDANSETRON INJ 2 MG/ML 2 ML VIAL ONE (16:04)
[2018-03-05] MEDS ORDERED: ONDANSETRON 4MG OD TAB PO ONE (16:15)
[2018-03-05] MEDS ORDERED: ONDANSETRON INJ 2 MG/ML 2 ML VIAL IV STA (16:38)
[2018-03-05] MEDS ORDERED: AMLO5TAB3 PO (16:44)
[2018-03-05] MEDS ORDERED: HYDR1CAP85 PO (16:44)
[2018-03-05 17:15] VITALS: BP 134/75; PULSE 67; O2SAT 94
--- NOTE | 2018-03-05 17:18 | EMERGENCY ROOM VISIT NOTE ---
History Report prepared by Anne: Donna Alford Under the Supervision of: Dr. Ale Berman M.D. First contact with patient: 12:41 Chief Complaint: ILLNESS Stated Complaint: NAUSEA,SHAKING,ANXIETY,SUICIDAL THROUGHTS History of Present Illness The patient is a 77 year old female who presents to the Emergency Room with complaints of worsening illness starting this morning. The patient states that a year and a half ago she was diagnosed with Atrial Fibrillation before going into a colonoscopy. She states that she had been vomiting the colon prep and they noticed it when she went in, but refused to do the colonoscopy. She reports that she was started on Xarelto and Metoprolol at this time. She reports that recently she had 2 TIAs. She states that one was behind her left eye and the other interfered with her balance. She reports that after her second one they placed her on lisinopril because her blood pressure was high. She states that she started that at the end of January. She reports that on Monday she started having lip swelling. She reports that her PCP and home health nurse recommended she stop taking the lisinopril. She reports that the swelling has still not gone down, but her blood pressure started to trend up. The patient's son states that this morning the patient woke up and had severe anxiety. He reports that she was having suicidal thoughts and her blood pressure was low. He states that she was nauseous and was shaking for a few minutes. He states that she had a temperature of 99.9. The patient states that she was just thinking about how the world would be better off without her and it seemed clear to her that that would be better. The patient's son notes that she has been cycling recently and usually hits a low each mid-morning. The patient complains of increased sleeping and loss of appetite. The patient denies chest pain, shortness of breath, vomiting, ever having thoughts of suicide before, having a suicidal plan, ever overdosing, ever seeing a psychiatrist, and thoughts of hurting herself. Source of History: patient Onset: this morning Position: other (generalized) Quality: other (illness) Timing: worsening Associated Symptoms: + nausea, No chest pain, No SOB, No vomiting Note: The patient complains of lip swelling, anxiety, low blood pressure, shaking, increased sleeping, loss of appetite, and suicidal thoughts. The patient denies having a suicidal plan, ever overdosing, and thoughts of hurting herself. Review of Systems See HPI for pertinent positives & negatives. A total of 10 systems reviewed and were otherwise negative. Past Medical & Surgical Medical Problems: (1) Acute ischemic stroke (2) History of TIAs (3) HTN (hypertension) Surgical Problems: (1) History of cataract surgery Family History No pertinent family history Social History Smoking Status: Former Smoker Alcohol Use: occasionally Drug Use: none Marital Status: Housing Status: lives with family Occupation Status: retired Current/Historical Medications Scheduled Amlodipine (Norvasc), 5 MG PO DAILY Aspirin (Aspirin Ec), 81 MG PO DAILY Atorvastatin (Lipitor), 40 MG PO HS Fluticasone Furoate-Vilanterol (Breo Ellipta), 1 PUFF INH DAILY Lisinopril (Lisinopril), 20 MG PO BID Metoprolol Succinate (Toprol Xl), 50 MG PO DAILY Rivaroxaban (Xarelto), 20 MG PO DAILY Scheduled PRN Hydroxyzine Pamoate (Vistaril), 25 MG PO Q6 PRN for anxiety Allergies Coded Allergies: Acetaminophen (Verified Allergy, Severe, ANAPHYLAXIS, 03/05/18) Oxycodone (Verified Allergy, Severe, ANAPHYLAXIS, 03/05/18) Codeine (Verified Allergy, Mild, HIVES, 03/05/18) Penicillins (Verified Allergy, Mild, ANAPHYLAXIS, 03/05/18) Physical Exam Vital Signs Date Time Temp Pulse Resp B/P (MAP) Pulse Ox O2 Delivery O2 Flow Rate FiO2 03/05/18 17:15 67 18 134/75 94 03/05/18 15:20 63 18 154/75 96 Room Air 03/05/18 14:30 78 22 03/05/18 14:00 75 03/05/18 14:00 71 18 03/05/18 12:39 73 18 149/90 Room Air 03/05/18 11:29 36.5 86 20 189/77 97 Room Air Physical Exam Vital signs reviewed. General: Well-appearing 77-year-old female, in no significant distress. HEENT: No scleral icterus, PERRLA, neck supple. Atraumatic. Minimal swelling of the upper lip, posterior oropharynx is clear. Cardiovascular: Rate controlled irregular rhythm, no extra sounds. Pulmonary: Clear to auscultation bilaterally, normal work of breathing. Abdomen: Soft, nontender, nondistended, positive bowel sounds. Musculoskeletal: Atraumatic, no peripheral edema. Neurologic: Patient awake alert and oriented x 3, full strength in all 4 extremities. Cranial nerves 2 through 12 grossly intact. Skin: Warm, dry, no rash Psych: Positive SI. No plan. Negative HI Medical Decision & Procedures ER Provider Diagnostic Interpretation: Radiology results as stated below per my review and radiologist interpretation: CHEST ONE VIEW PORTABLE CLINICAL HISTORY: fever dyspnea COMPARISON STUDY: 02/15/2018 FINDINGS: The bones soft tissues and hemidiaphragms are normal. The cardiomediastinal silhouette is normal. The lungs are clear. The pulmonary vasculature is normal. IMPRESSION: Negative chest. The above report was generated using voice recognition software. It may contain grammatical, syntax or spelling errors. Electronically signed by: Munir Ortiz M.D. 03/05/2018 1:53 PM Dictated Date/Time: 03/05/2018 1:52 PM Laboratory Results 03/05/18 14:00 Red Blood Count 4.94, Mean Corpuscular Volume 88.9, Mean Corpuscular Hemoglobin 30.6, Mean Corpuscular Hemoglobin Concent 34.4, Mean Platelet Volume 10.4, Neutrophils (%) (Auto) 74.6, Lymphocytes (%) (Auto) 16.2, Monocytes (%) (Auto) 8.2, Eosinophils (%) (Auto) 0.6, Basophils (%) (Auto) 0.2, Neutrophils # (Auto) 4.01, Lymphocytes # (Auto) 0.87, Monocytes # (Auto) 0.44, Eosinophils # (Auto) 0.03, Basophils # (Auto) 0.01 03/05/18 14:00 Test 03/05/18 13:57 03/05/18 14:00 03/05/18 14:20 Ethyl Alcohol mg/dL < 3.0 mg/dl (0-3) White Blood Count 5.37 K/uL (4.8-10.8) Red Blood Count 4.94 M/uL (4.2-5.4) Hemoglobin 15.1 g/dL (12.0-16.0) Hematocrit 43.9 % (37-47) Mean Corpuscular Volume 88.9 fL (80-100) Mean Corpuscular Hemoglobin 30.6 pg (25-34) Mean Corpuscular Hemoglobin Concent 34.4 g/dl (32-36) Platelet Count 179 K/uL (130-400) Mean Platelet Volume 10.4 fL (7.4-10.4) Neutrophils (%) (Auto) 74.6 % Lymphocytes (%) (Auto) 16.2 % Monocytes (%) (Auto) 8.2 % Eosinophils (%) (Auto) 0.6 % Basophils (%) (Auto) 0.2 % Neutrophils # (Auto) 4.01 K/uL (1.4-6.5) Lymphocytes # (Auto) 0.87 K/uL (1.2-3.4) Monocytes # (Auto) 0.44 K/uL (0.11-0.59) Eosinophils # (Auto) 0.03 K/uL (0-0.5) Basophils # (Auto) 0.01 K/uL (0-0.2) RDW Standard Deviation 44.0 fL (36.4-46.3) RDW Coefficient of Variation 13.6 % (11.5-14.5) Immature Granulocyte % (Auto) 0.2 % Immature Granulocyte # (Auto) 0.01 K/uL (0.00-0.02) Anion Gap 7.0 mmol/L (3-11) Est Creatinine Clear Calc Drug Dose 52.2 ml/min Estimated GFR () 75.5 Estimated GFR (Non- 65.2 BUN/Creatinine Ratio 17.3 (10-20) Calcium Level 9.9 mg/dl (8.5-10.1) Magnesium Level 2.5 mg/dl (1.8-2.4) Total Bilirubin 1.9 mg/dl (0.2-1) Direct Bilirubin 0.5 mg/dl (0-0.2) Aspartate Amino Transf (AST/SGOT) 17 U/L (15-37) Alanine Aminotransferase (ALT/SGPT) 26 U/L (12-78) Alkaline Phosphatase 95 U/L (45-117) Troponin I < 0.015 ng/ml (0-0.045) Total Protein 7.1 gm/dl (6.4-8.2) Albumin 3.9 gm/dl (3.4-5.0) Salicylates Level < 1.7 mg/dl (2.8-20) Acetaminophen Level < 2 ug/ml (10-30) Urine Color YELLOW Urine Appearance CLEAR (CLEAR) Urine pH 7.0 (4.5-7.5) Urine Specific [place] 1.015 (1.000-1.030) Urine Protein NEG (NEG) Urine Glucose (UA) NEG (NEG) Urine Ketones 1+ (NEG) Urine Occult Blood NEG (NEG) Urine Nitrite NEG (NEG) Urine Bilirubin NEG (NEG) Urine Urobilinogen NEG (NEG) Urine Leukocyte Esterase TRACE (NEG) Urine WBC (Auto) 1-5 /hpf (0-5) Urine RBC (Auto) 0-4 /hpf (0-4) Urine Hyaline Casts (Auto) 0 /lpf (0-5) Urine Epithelial Cells (Auto) 10-20 /lpf (0-5) Urine Bacteria (Auto) NEG (NEG) Urine Opiates Screen NEG (NEG) Urine Methadone, Qualitative NEG (NEG) Urine Barbiturates NEG (NEG) Urine Phencyclidine (PCP) Level NEG (NEG) Ur Amphetamine/Methamphetamine NEG (NEG) MDMA (Ecstasy) Screen NEG (NEG) Urine Benzodiazepines Screen NEG (NEG) Urine Cocaine Metabolite NEG (NEG) Urine Marijuana (THC) NEG (NEG) Laboratory results per my review. Medications Administered Medications (Trade) Dose Ordered Sig/Adriana Route Start Time Stop Time Status Last Admin Dose Admin Ondansetron HCl (Zofran Inj) 4 mg STK-MED ONCE .ROUTE 03/05/18 16:04 03/05/18 16:05 DC 03/05/18 16:07 4 MG ECG Per My Interpretation Indication: nausea Rate (beats per minute): 66 Rhythm: atrial fibrillation Findings: no acute ischemic change, no ectopy ED Course 1300: Past medical records reviewed. The patient was evaluated in room B7. A complete history and physical examination was performed. 1615: Ordered Zofran Odt 4 mg PO. 1616: At this time the psych top case assembler spoke to the patient. 1659: Upon reevaluation, the patient appeared to have improvement of her symptoms. I discussed findings with her. She verbalized agreement of the treatment plan. The patient was discharged home. Medical Decision Differential diagnosis: Etiologies such as mood disorder, infection, hypoglycemia, electrolyte abnormalities, cardiac sources, intracerebral event, toxicologic, neurologic, as well as others were entertained. This patient was evaluated and appeared to be in no significant distress. Patient likely suffered from angioedema related to the lisinopril. She stopped this medication several days ago. There is no evidence of airway compromise or significant facial swelling. Chest x-ray was performed and reveals no evidence of focal lung consolidation or failure. EKG reveals a rate controlled atrial fibrillation. The patient was given 4 mg of IV Zofran for nausea. The patient was medically cleared and evaluated by the mental health top case assembler. It is felt that the patient is not acutely suicidal, she is not a danger to herself or others. The patient's records were reviewed with the clinical pharmacist. She has recommended Norvasc for her hypertension and she can no longer take lisinopril. Patient was given a prescription for a two-week supply of Norvasc 5 mg daily. Patient was also given a prescription for Vistaril 25 mg every 6-8 hours as needed for acute anxiety. Patient was strongly encouraged to discuss her depressive symptoms and anxiety attack with her PCP as she may warrant further management. She will follow-up with her PCP for blood pressure recheck and further management. She will return to the ED for worsening of symptoms or any medical concerns. Medication Reconcilliation Current Medication List: was personally reviewed by me Blood Pressure Screening Patient's blood pressure: Elevated blood pressure Blood pressure disposition: Referred to PCP Impression Primary Impression: Mood disorder Additional Impression: HTN (hypertension) Scribe Attestation The scribe's documentation has been prepared under my direction and personally reviewed by me in its entirety. I confirm that the note above accurately reflects all work, treatment, procedures, and medical decision making performed by me. Departure Information Dispostion Home / Self-Care Prescriptions Hydroxyzine Pamoate (VISTARIL) 25 Mg Cap 25 MG PO Q6 Y for anxiety, #30 CAP Prov: Ale Berman M.D. 03/05/18 Amlodipine (Norvasc) 5 Mg Tab 5 MG PO DAILY, #14 TAB Prov: Ale Berman M.D. 03/05/18 Referrals Vlad Leach M.D. (PCP) Forms HOME CARE DOCUMENTATION FORM, IMPORTANT VISIT INFORMATION, WORK / SCHOOL INSTRUCTIONS Patient Instructions My [facility] Additional Instructions Diagnosis: Acute mood disorder Norvasc 5 mg daily. Have your blood pressure rechecked within the next week. Avoid excess salt in your diet. Do not take lisinopril any longer. Vistaril 25 mg every 6-8 hours as needed for anxiety. Contact your primary care physician tomorrow for advice regarding an SSRI such as Zoloft. Please be honest with your symptoms regarding excessive sleep, decreased appetite and your anxiety episode this morning. Return to the emergency department for worsening of symptoms or any medical concerns. Problem Qualifiers
== END 2018-03-05 17:23 | disposition home or self-care (01) ==
LOC: C.EDB 11:28
DX: F39 Unspecified mood [affective] disorder (principal); I10 Essential (primary) hypertension; F41.9 Anxiety disorder, unspecified; I48.2 Chronic atrial fibrillation; Z79.899 Other long term (current) drug therapy; Z79.01 Long term (current) use of anticoagulants; Z79.82 Long term (current) use of aspirin; Z86.73 Personal history of transient ischemic attack (TIA), and cerebral infarction without residual deficits; Z87.891 Personal history of nicotine dependence; Z88.0 Allergy status to penicillin; Z88.6 Allergy status to analgesic agent; Z88.8 Allergy status to other drugs, medicaments and biological substances

== ENCOUNTER 2019-08-06 06:29 | Inpatient (IN) ==
--- NOTE | 2019-07-10 12:10 | PAT Medication Instructions ---
Medication Instructions Date of Service July 10, 2019 Home Medications Medication Instructions Recorded atenolol 50 mg tablet 50 mg PO DAILY #30 tab 02/05/19 atenolol 50 mg tablet 50 mg PO DAILY amlodipine 5 mg tablet 5 mg PO DAILY aspirin 81 mg tablet,delayed release 81 mg PO QAM atorvastatin 40 mg tablet 40 mg PO DAILY cholecalciferol (vitamin D3) 50 mcg (2,000 unit) capsule 2,000 units PO DAILY rivaroxaban 20 mg tablet 20 mg PO DAILY ascorbic acid (vitamin C) [Vitamin C] 500 mg PO DAILY ASK your prescriber and surgeon rivaroxaban 20 mg tablet 20 mg PO DAILY MUST BE HELD FOR A MINIMUM OF 72 HOURS PRIOR TO SURGERY FOR SPINAL ANESTHESIA (PREFERRED METHOD) DO NOT take the morning of surgery cholecalciferol (vitamin D3) 50 mcg (2,000 unit) capsule 2,000 units PO DAILY ascorbic acid (vitamin C) [Vitamin C] 500 mg PO DAILY Take morning of surgery With a small sip of water, OTHERWISE NOTHING TO EAT OR DRINK AFTER MIDNIGHT: atenolol 50 mg tablet 50 mg PO DAILY amlodipine 5 mg tablet 5 mg PO DAILY aspirin 81 mg tablet,delayed release 81 mg PO QAM (OK per surgeon) atorvastatin 40 mg tablet 40 mg PO DAILY Other Notes If you have any questions please call us at [phone] or [phone] or [phone] or [phone]
--- NOTE | 2019-07-10 12:16 | PAT Medication Instructions ---
Medication Instructions Date of Service July 10, 2019 Home Medications Medication Instructions Recorded atenolol 50 mg tablet 50 mg PO DAILY #30 tab 02/05/19 atenolol 50 mg tablet 50 mg PO DAILY amlodipine 5 mg tablet 5 mg PO DAILY aspirin 81 mg tablet,delayed release 81 mg PO QAM atorvastatin 40 mg tablet 40 mg PO DAILY cholecalciferol (vitamin D3) 50 mcg (2,000 unit) capsule 2,000 units PO DAILY rivaroxaban 20 mg tablet 20 mg PO DAILY ascorbic acid (vitamin C) [Vitamin C] 500 mg PO DAILY Take morning of surgery With a small sip of water, OTHERWISE NOTHING TO EAT OR DRINK AFTER MIDNIGHT: Insulin Dependent Diabetic Patients * Test your blood sugar the morning of surgery * If Blood Sugar is GREATER THAN 150, take HALF of your regular dose of: * If Blood Sugar is LESS THAN 150, DO NOT TAKE ANY: Other Notes If you have any questions please call us at [phone] or [phone] or [phone] or [phone]
--- NOTE | 2019-07-11 08:53 | Anesthesiology Consultation ---
Date of Service July 11, 2019 Assessment & Plan (1) Encounter for pre-operative examination: - Awaiting review preop testing (labs, EKG, CXR). - Cardiology: 02/22/19: "Overall blood pressure control appears to be good on her current medical regimen.. She has permanent atrial fibrillation. No symptoms. She appears to have adequate rate control and is on appropriate anticoagulation. I believe she was started on a baby aspirin subsequent to her stroke. From a purely cardiac standpoint she does not require aspirin in addition to her Xarelto." Plan for repeat ECHO in 1-2 years. - Xarelto instructions: patient made aware that in order for spinal anesthesia, Xarelto needs to be held 72 hours/3 days prior to surgery. Patient voiced understanding/will check if okay with prescriber. Chart Review Chart Review: Patient seen in Pre Admission Testing Teaching & Discussion Pre-Anesthesia Teaching/Discussion Notes: Instructed NPO after midnight before surgery,except medications with 15 cc of water. Medication instructions provided according to the PAT guidelines. History Surgery Operation Date: 08/06/19 12:30 Proposed Procedures p Left Total Knee Arthroplasty - Bill Boothe MD Height/Weight Height: 5 ft 5.5 in Weight: 72.8 kg Allergies Allergy/AdvReac Type Severity Reaction Status Date / Time oxycodone Allergy Severe anaphylaxis Verified 07/10/19 16:17 codeine Allergy Mild hives Verified 07/10/19 16:17 Penicillins Allergy Mild rash Verified 07/10/19 16:17 lisinopril Allergy Unknown lips Verified 07/10/19 16:17 swelling acetaminophen [From Tylox] Allergy "slow" Verified 07/10/19 16:17 breathing levofloxacin [From Levaquin] Allergy unknown Verified 07/10/19 16:17 reaction Medications Home Medications Medication Instructions Recorded Confirmed Last Taken atenolol 50 mg tablet 50 mg PO DAILY #30 tab 02/05/19 07/10/19 Unknown amlodipine 5 mg tablet 5 mg PO DAILY #90 tab 02/12/19 07/10/19 Unknown aspirin 81 mg tablet,delayed 81 mg PO QAM tab 02/12/19 07/10/19 Unknown release atorvastatin 40 mg tablet 40 mg PO DAILY #90 tab 02/12/19 07/10/19 Unknown cholecalciferol (vitamin D3) 50 2,000 units PO DAILY #30 cap 02/12/19 07/10/19 Unknown mcg (2,000 unit) capsule rivaroxaban 20 mg tablet 20 mg PO DAILY #90 tab 02/12/19 07/10/19 Unknown ascorbic acid (vitamin C) [Vitamin 500 mg PO DAILY 07/10/19 07/10/19 Unknown C] Past Medical History Medical History Atrial fibrillation 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= no definitive residual effects Hyperlipidemia Hypertension Osteoarthritis Poor historian Exercise / Class Metabolic Activity II 4-5 Yardwork/Stairs/Walk up hill (occasionally uses one flight of stairs (no chest pain/no sob)) Past Family History Family History Son Family history of diabetes mellitus Past Surgical History Surgical History Hx of abdominal surgery EXCISION LIPOMA - RIGHT Hx of breast surgery EXCISION LIPOMA --RIGHT Hx of colonoscopy Hx of hysterectomy Past Anesthesia History No Hx of Anesthesia Complications (except PONV) and No Family Hx of Anesthesia Complications History of PONV History of PONV and Hx of Motion Sickness Social History Smoking Status: Never smoker Do You Dip or Chew Tobacco: No Hx Alcohol Use: No Hx Substance Use: No Review of Systems Patient denies chest pain, shortness of breath, dyspnea on exertion, cough, wheezing, palpitations. Physical Exam Vital Signs VITALS BP 140/58 P 57 TEMP 98.1 SP02 96%RA RESP 18 PHYSICAL Mildly decreased cervical extension Full TMJ range of motion. TMD 3 finger breaths Mallampati Score 1 Dentition: missing molars Lungs: clear throughout to auscultation Cardiac: regular rate, irregular rhythm, no murmurs noted Spine: ?kyphoscoliosis Carotid arteries: negative bruit Extremities: no edema Testing Echocardiogram Date: 02/20/18 LVEF 65-70%. No RWMA. Mild to Moderate cLVH. Mild MR. AV sclerosis without stenosis. RVSP 30-40mmhg.
--- NOTE | 2019-07-11 09:50 | XRay Report ---
XR chest Pre-admission PA/Lat CLINICAL HISTORY: Preoperative evaluation. COMPARISON STUDY: Chest CT September 18, 2017. Chest radiograph March 05, 2018. FINDINGS: Mild lung hyperexpansion is noted. There is no pneumothorax or pleural effusion. There is n o consolidation or evidence for pulmonary edema. Cardiomediastinal silhouette is stable. Appearance o f the chest is unchanged. IMPRESSION: No acute cardiopulmonary findings. ACT 112: Negative or not required by law. Electronically signed by: Bennett Montero M.D. 07/11/2019 9:49 AM
[2019-07-11 10:09] LABS: Basophils # (auto) 0.01 K/uL (0-0.2); Basophils % (auto) 0.2 %; Eosinophils # (auto) 0.06 K/uL (0-0.5); Eosinophils % (auto) 1.5 %; Hematocrit (blood only) 39.9 % (37-47); Hemoglobin 13.3 g/dL (12.0-16.0); Lymphocytes # (auto) 0.79 K/uL (1.2-3.4); Lymphocytes % (auto) 19.3 %; Mean Corpuscular Hemoglobin 30.9 pg (25-34); Mean Corpuscular Hgb Conc 33.3 g/dL (32-36); Mean Corpuscular Volume 92.8 fL (80-100); Mean Platelet Volume 10.4 fL (7.4-10.4); Monocytes # (auto) 0.41 K/uL (0.11-0.59); Neutrophils # (auto) 2.82 K/uL (1.4-6.5); Platelet Count 168 K/uL (130-400); RDW Standard Deviation 43.3 fL (36.4-46.3); White Blood Count 4.09 K/uL (4.8-10.8)
[2019-07-11 10:19] LABS: BUN Creatinine Ratio 26.2 (10-20); Calcium 10.2 mg/dl (8.5-10.1); Creatinine Clr Calc Pharmacy 58.9 ml/min; Est GFR (African American) 84.5; Est GFR (Non-African American) 72.9; Potassium 4.6 mmol/L (3.5-5.1)
[2019-07-11 10:22] LABS: INR 1.4 (0.9-1.1); Partial Thromboplastin Ratio 1.1; Prothrombin Time 14.4 Seconds (9.0-12.0)
--- NOTE | 2019-08-03 12:06 | History and Physical Report ---
DATE OF ADMISSION: 08/06/2019 CHIEF COMPLAINT: Left knee pain. HISTORY OF PRESENT ILLNESS: The patient is an 78-year-old female who presents for surgical treatment of her left knee. She has a several year history of increasing left knee pain and discomfort that has gradually gotten worse over time. She has been through extensive conservative treatment including various medicines and injections, which have not helped much. She tried to maintain an active lifestyle, but having more difficulty doing this. She was recently in [facility] and having a lot of trouble walking around due to her knee pain, discomfort and swelling. She has nighttime pain. She would like to have her knee fixed. PAST MEDICAL HISTORY: 1. Atrial fibrillation followed by Dr. Baumann and on Xarelto. 2. Hypertension. 3. History of TIA and mini stroke in the past without residual sequelae. 4. Arthritis. PAST SURGICAL HISTORY: Include: 1. Hysterectomy in 1987. 2. Lipoma resection. ALLERGIES: 1. CODEINE WHICH CAUSES A RASH. 2. PENICILLIN WHICH CAUSES RASH. 3. TYLOX QUESTIONABLE ALLERGY. CURRENT MEDICINES: Include: 1. Atorvastatin 40 mg daily. 2. Xarelto 20 mg. 3. Atenolol 50 mg. 4. Amlodipine 5 mg. 5. [place] Baby aspirin once a day. SOCIAL HISTORY: An 78-year-old female. Fairly active. Does not smoke. Has a pretty good family support. REVIEW OF HISTORY: Negative for diabetes, neurologic problems, vascular problems or bleeding disorders. She is on Xarelto for her atrial fibrillation. Denies any chest pain or shortness of breath. PHYSICAL EXAMINATION: GENERAL: Shows a pleasant elderly female. Looks to be in good health. HEENT: Benign. NECK: Supple, no lymphadenopathy. LUNGS: Clear to auscultation. HEART: Has a regular rate and rhythm. ABDOMEN: Soft, nontender, nondistended. EXTREMITIES: Grossly neurovascularly intact except as follows: Examination of the left knee reveals patient ambulates with a slight bit of a limp. She has a fairly thin soft tissue envelope. She has got bony hypertrophy medially. She had varus deformity to her knee. Her range of motion is about 10 degrees short of full extension to about 110 degrees of flexion. Fairly stiff in flexion. No pain with hip motion. X-RAYS: X-rays of the left knee were reviewed. She has advanced left knee DJD. She has complete loss of her medial joint space. She has subchondral sclerosis with unevenness of the bone ends. She has got osteophytes off the medial femoral condyle and medial tibial plateau. ASSESSMENT: An 78-year-old female with underlying atrial fibrillation with advanced left knee degenerative joint disease. She has failed conservative treatment and would like to have her left knee replaced. PLAN: We will take her to the operating room and do a left total knee replacement. The risks and benefits of this procedure were explained to the patient including but not limited to DVT, PE, , infection, neurological injury, vascular injury, bleeding problem, pain, limited range of motion, stiffness, failure to relieve symptoms, incomplete relief of symptoms, need for further surgery in future, etc. The patient understands and desires to proceed. Informed consent was obtained. We did talk about holding her Xarelto 48 hours preop and make sure she takes her atenolol the morning of surgery. She is planning to be discharged to home with some home health and likely some family support.
[~2019-08-06 06:29] MED LIST changes: -ASPI81TA28 PO; +BUPIVACAINE 0.5 % 5 MG/1 ML PF 10ML VIAL ONE; +BUPIVACAINE LIPOSOME/PF 266 MG, BUPIVACAINE/EPINEPHRINE 50 ML, SODIUM CHLORIDE 0.9% 30 ... INFIL SCH; +CEFAZOLIN 2000MG 2,000 MG/15 ML SYR IV SCH; +FAMOTIDINE 20 MG TAB PO SCH; -FLUT1INH INH; +GABAPENTIN 300 MG CAP PO SCH; -LISI-726 PO; -LPT40 PO; +LR 500ML BOLUS, THEN 15ML/HR IV SCH; +LR 60ML/HR IV SCH; -METO-217 PO; +METOCLOPRAMIDE HCL 10 MG TABLET PO SCH; +OXYCODONE HCL 10 MG TABCR (OXYCONTIN) PO SCH; +ROPIVACAINE 0.5% 5 MG/ML 30 ML VIAL ONE; +TRANEXAMIC ACID 1,000 MG **IV Intra-op IV SCH; -VBRT100 PO; -XRL20 PO
--- NOTE | 2019-08-06 06:52 | History & Physical Bridge Note ---
Date of Service August 06, 2019 History & Physical Bridge Note I have examined the patient, reviewed the History & Physical and in the interval since the performance of the History & Physical I have noted the following changes of clinical significance: no changes noted
[2019-08-06] MEDS ORDERED: fentaNYL citrate 100 MCG/2 ML VIAL ONE (07:11)
[2019-08-06] MEDS ORDERED: MIDAZOLAM HCL 1 MG/ML 2ML VIAL ONE ×2 (07:11→08:18)
[2019-08-06 07:15] LABS: INR 1.2 (0.9-1.1); Partial Thromboplastin Time 26.2 Seconds (21.0-31.0); Prothrombin Time 11.9 Seconds (9.0-12.0)
[2019-08-06] MEDS ORDERED: ACETAMINOPHEN 500 MG TAB ONE (07:17)
[2019-08-06] MEDS ORDERED: KETOROLAC 30 MG/ML VIAL IV PRN (08:17)
[2019-08-06] MEDS ORDERED: ONDANSETRON INJ 2 MG/ML 2 ML VIAL IV PRN ×2 (08:17→11:59)
[2019-08-06] MEDS ORDERED: ePHEDrine sulfate 50 MG/ML AMP IV PRN (08:17)
[2019-08-06] MEDS ORDERED: ATROPINE SULFATE 0.1 MG/ML 10ML SYR IV PRN (08:17)
[2019-08-06] MEDS ORDERED: HYDROmorphone INJ 1 MG/ML SYRINGE IV PRN (08:17)
[2019-08-06] MEDS ORDERED: BACITRACIN INJ 50,000 UNIT VIAL ONE (08:32)
[2019-08-06] MEDS ORDERED: BUPIVACAINE LIPOSOME 1.3% 266 MG/20 ML VIAL ONE (08:32)
[2019-08-06] MEDS ORDERED: BUPIVACAINE/EPINEPHRINE 0.25% 1:200,000 30 ML VIAL ONE (08:32)
[2019-08-06] MEDS ORDERED: SODIUM CHLORIDE 0.9% PF 50 ML VIAL ONE (08:32)
[2019-08-06] MEDS ORDERED: PROPOFOL IV EMULSION 10 MG/ML 20 ML VIAL IV ONE (08:59)
[2019-08-06] MEDS ORDERED: PHENYLEPHRINE 100MCG/ML 5ML SYR ONE (09:38)
--- NOTE | 2019-08-06 10:35 | Post Operative Brief Note ---
PG Immediate Post Op with CF Date of Surgery August 06, 2019 Pre & Post Diagnosis Operation Date: 08/06/19 08:50 Pre-Op Diagnosis: LEFT KNEE DEGENERATIVE JOINT DISEASE W/KNEE PAIN Post-Op Diagnosis: LEFT KNEE DEGENERATIVE JOINT DISEASE W/KNEE PAIN I identified the patient and participated in the time-out.: Yes Procedure Operation Date: 08/06/19 08:50 Actual Procedures p Left Total Knee Arthroplasty(Left) - Bill Boothe MD Surgeon Bill Boothe MD Brass Buffer Alo, PAC Estimated Blood Loss 50 Findings Consistent with Post-Op Diagnosis Fluids 1300 cc Specimens Specimen Description: Permanent Solution: A.) Left Knee Bone and Tissue Drains Peres Catheter (16 slovak 10ml balloon, placed by Jael Prajapati PA-C, without difficulty; peres demonstrates clear yellow urine. Output measured and recorded by anesthesia.) Anesthesia Type Spinal MAC Complications none Disposition Accompanied Patient To Recovery: No Disposition: Recovery Room
--- NOTE | 2019-08-06 10:48 | Operative Report ---
Post Operative Report Pre & Post Diagnosis Operation Date: 08/06/19 08:50 Pre-Op Diagnosis: LEFT KNEE DEGENERATIVE JOINT DISEASE W/KNEE PAIN Post-Op Diagnosis: LEFT KNEE DEGENERATIVE JOINT DISEASE W/KNEE PAIN I identified the patient and participated in the time-out.: Yes Procedure Operation Date: 08/06/19 08:50 Actual Procedures p Left Total Knee Arthroplasty(Left) - Bill Boothe MD Surgeon Bill Boothe MD Senior Health Consultant Alo, PAC Estimated Blood Loss 50 Findings Consistent with Post-Op Diagnosis Operative findings revealed advanced left knee DJD with extensive grade 4 [id number] disease of the medial femoral condyle medial tibial plateau with extensive eburnation. She had a varus deformity to her knee. She had a flexion contracture of 10 degrees and a moderate to large knee joint effusion. Diffuse osteopenia. Fluids 1300 cc Specimens Left knee sent for pathology. Drains None. Anesthesia Type Spinal MAC Complications none Disposition Accompanied Patient To Recovery: No Disposition: Recovery Room Indications Patient is an 78-year-old very active and independent female is had a several year history of increasing left knee pain discomfort. She has been through extensive conservative treatment the past which became less successful over time. X-rays reveal advanced left knee DJD. She elected proceed with total knee arthroplasty. Description of Procedure Operative implants consist of: 1. Biomet Vanguard size 67.5 left posterior stabilized femoral component. 2. Biomet size 71 tibial tray. 3. 10 mm posterior stabilized polyethylene insert. 4. 31 x 8 all poly-patella. Patient was taken to the operating room identified and placed on the operating room table supine position protectors were properly padded. IV antibiotics were provided by anesthesia team. A spinal anesthetic and abductor canal block had been provided holding area. Joya catheter was placed in sterile fashion. A left eye turn was then placed in the left lower extremity was then prepped and draped in usual sterile fashion. Left leg was elevated and exsanguinated with use of an Esmarch and tourniquet was placed at 300 mmHg. An anterior approach to the left knee was then performed to longitudinal incision centered over the patella. Sharp dissection was carried out through subcutaneous tissue down below the extensor mechanism. A medial parapatellar arthrotomy incision was made. Some subperiosteal dissection was carried out medially. The fat pad was resected from each patella tendon. Lateral patellofemoral ligament was released. Patella was subluxated laterally and the knee was flexed. The osteophytes were taken off the distal femur. ACL and PCL were then released from the distal femur and the tibia subluxated anteriorly. The external tibial alignment jig was then placed in the interface the tibia and adjusted 16 mm medially. Proximal tibial cut was made to remove about a millimeter bone from most efficient aspect the medial tibial plateau. Some osteophytes were taken off it medially. The tibia was then sized to a size 71. Attention drawn the femur. The distal femur was entered with a sharp drop with intramedullary canal was suction. A left 5 degree valgus cutting guide was placed. Distal femoral cutting block was pinned in place. Distal femoral cut was made to take an additional 3 mm of bone off distal femur. The femur was then sized to a size 67.5. We did downsize this slightly. The AP cutting block was pinned parallel to the epicondylar axis which was 5 degrees of external rotation. Anterior cut, anterior chamfer, posterior cut, posterior chamfer cuts were made. Box cutting guide was placed and adjusted slightly lateral and the box cut was made. The knee was flexed. The remnants of the medial lateral menisci were excised. The osteophytes were taken off the posterior aspect of the femur. Trial femoral component was placed. The tibial tray was pinned in maximum external rotation and the drill and stem punch were used to create defect in the proximal tibia for the tibial tray. The knee was then trialed the 10 mm insert fit most appropriately. Attention drawn the patella. The patella was cleaned of all soft tissues. Patella thickness measured 24 mm in thickness was cut down to 13. Size a size 31 patella. Lug holes were drilled for the 31 patella. The lateral osteophyte was removed. Patella button was placed. Knee was taken through range of motion patella tracked nicely with no thumbs test. Attention turned to placing the permanent components. All trial components were removed. A bone plug was placed in the disc femur limit blood loss put a double batch Palacos G cement was mixed. A Biomet Vanguard size 67.5 left posterior by femoral component, size 71 tibial tray, a 10 mm posterior box polyethylene insert, and a 31 x 8 all poly-patella were then cemented in place. Knee was brought out into full extension total cement hardened. Final cement check was then performed. The pericapsular tissues were injected with total of 100 cc of combination of 20 cc of Exparel, 30 cc normal saline, 50 cc of quarter percent Marcaine with epinephrine. Patient did receive 1 g of tranexamic acid. The tourniquet was then let down for a final tourniquet time of 55 minutes. Hemostasis was assured with electrocautery. The wounds once again irrigated. The extensor mechanism then closed with combination #1 PDS suture #1 Vicryl suture in [id number] fashion. The extensor mechanism was checked found to be intact the subcutaneous tissue was then closed with 2 Dexon suture in a buried interrupted fashion skin was closed skin oliver. Leg was then cleaned dried a sterile dressing composed of Xeroform, 4 x 4's, sterile cast padding, and Quang bandage were applied. Patient then transferred to the recovery room in stable condition. Patient tolerated procedure well no complications. I attest to the content of the Intraoperative Record and any orders documented therein. Any exceptions are noted below.
--- NOTE | 2019-08-06 11:14 | XRay Report ---
XR knee LT 1 or 2V routine CLINICAL HISTORY: Surgical Post Op COMPARISON: 09/03/2015 DISCUSSION: There are postsurgical changes of a total left knee arthroplasty and patellar resurfacing . The femoral tibial components appear well seated. There is air present within the soft tissues cons istent with recent surgery. There are overlying skin oliver. IMPRESSION: Postsurgical changes of a total left knee arthroplasty. ACT 112: Negative or not required by law. Electronically signed by: Magnus Oliveros M.D. 08/06/2019 11:13 AM
[2019-08-06] MEDS ORDERED: bisacodyL 10 MG SUPP PR PRN (11:59)
[2019-08-06] MEDS ORDERED: HYDROmorphone INJ 0.5 MG/0.5 ML SYR IV PRN (11:59)
[2019-08-06] MEDS ORDERED: ALUMINUM/MAGNESIUM SUSP 30 ML UDC PO PRN (11:59)
[2019-08-06] MEDS ORDERED: MAGNESIUM HYDROXIDE SUSP 30 ML UDC PO PRN (11:59)
[2019-08-06] MEDS ORDERED: NALOXONE HCL 0.4 MG/1 ML VIAL/CARP IV PRN (11:59)
[2019-08-06] MEDS ORDERED: METOCLOPRAMIDE HCL INJ 5 MG/ML 2 ML VIAL IV PRN (11:59)
[2019-08-06] MEDS ORDERED: NO NSAIDS SCH (11:59)
[2019-08-06] MEDS: SODIUM CHLORIDE 0.9% 1000ML 1,000 ML IV SCH ×2 (13:25→22:07)
[2019-08-06] MEDS: ACETAMINOPHEN 500 MG TAB PO SCH ×2 (13:26→22:02)
--- NOTE | 2019-08-06 14:03 | Anesthesiology Progress Note ---
Date of Service August 06, 2019 Anesthesia Post Procedure Vital Signs Vital Signs: Temp Pulse Pulse Pulse Resp BP Pulse Ox 08/06/19 13:45 36.3 C L 59 L 16 126/63 100 08/06/19 12:45 36.5 C 66 18 123/69 97 08/06/19 12:19 36.4 C L 61 17 134/62 99 08/06/19 11:45 36.4 C L 64 16 131/71 99 08/06/19 11:25 36.9 C 59 L 20 120/40 L 98 08/06/19 11:15 36.9 C 55 L 16 127/51 L 99 08/06/19 11:05 36.9 C 59 L 20 126/58 L 99 08/06/19 10:55 64 19 122/49 L 99 08/06/19 10:45 58 L 17 119/57 L 100 08/06/19 10:37 37.0 C 64 10 L 123/53 L 98 08/06/19 06:56 37 C 67 18 145/72 H 96 Pain Intensity Left Knee: Pain Intensity: 0 Transfer of Care Handoff Completed per policy Notes Mental Status: alert / awake / arousable Patient Amnestic to Procedure: Yes Nausea / Vomiting: adequately controlled Pain: adequately controlled Airway Patency, RR, SpO2: stable & adequate BP & HR: stable & adequate Hydration State: stable & adequate Neuraxial Anesthesia: was administered and sensory block is resolving Anesthetic Complications: no major complications apparent
[2019-08-06] MEDS: HYDROmorphone HCL 2 MG TAB PO PRN ×2 (15:14→22:05)
[2019-08-06] MEDS: CEFAZOLIN 1000MG 1,000 MG/7.5 ML SYR IV SCH (17:15)
[2019-08-06] MEDS: FERROUS GLUCONATE 324 MG TAB PO SCH (17:16)
[2019-08-06] MEDS: SENNA 8.6 MG TAB PO SCH (20:35)
[2019-08-06] MEDS: DOCUSATE SODIUM 100 MG CAP PO SCH (20:35)
[2019-08-07] MEDS: CEFAZOLIN 1000MG 1,000 MG/7.5 ML SYR IV SCH (01:57)
[2019-08-07] MEDS: ACETAMINOPHEN 500 MG TAB PO SCH ×3 (05:46→21:30)
[2019-08-07 05:47] LABS: Hematocrit (blood only) 29.8 % (37-47); Hemoglobin 10.1 g/dL (12.0-16.0); Mean Corpuscular Hemoglobin 31.2 pg (25-34); Mean Corpuscular Hgb Conc 33.9 g/dL (32-36); Mean Platelet Volume 9.3 fL (7.4-10.4); Platelet Count 130 K/uL (130-400); RDW Coefficient of Variation 12.9 % (11.5-14.5); RDW Standard Deviation 43.1 fL (36.4-46.3); Red Blood Count 3.24 M/uL (4.2-5.4); White Blood Count 5.31 K/uL (4.8-10.8)
[2019-08-07 06:24] LABS: BUN Creatinine Ratio 22.3 (10-20); Calcium 8.6 mg/dl (8.5-10.1); Creatinine Clr Calc Pharmacy 57.1 ml/min; Est GFR (African American) 83.2; Est GFR (Non-African American) 71.8; Potassium 4.4 mmol/L (3.5-5.1)
--- NOTE | 2019-08-07 07:58 | Anesthesiology Progress Note ---
Date of Service August 07, 2019 Anesthesia Post Procedure Vital Signs Vital Signs: Temp Pulse Pulse Pulse Resp BP BP 08/07/19 07:45 36.8 C 108 H 18 143/81 H 08/07/19 03:39 36.8 C 71 16 116/64 08/06/19 23:31 36.6 C 76 16 125/67 08/06/19 19:37 36.4 C L 60 16 129/64 08/06/19 16:10 36.3 C L 67 16 130/71 08/06/19 14:52 36.6 C 50 L 17 127/69 08/06/19 13:45 36.3 C L 59 L 16 126/63 08/06/19 12:45 36.5 C 66 18 123/69 08/06/19 12:19 36.4 C L 61 17 134/62 08/06/19 11:45 36.4 C L 64 16 131/71 08/06/19 11:25 36.9 C 59 L 20 120/40 L 08/06/19 11:15 36.9 C 55 L 16 127/51 L 08/06/19 11:05 36.9 C 59 L 20 126/58 L 08/06/19 10:55 64 19 122/49 L 08/06/19 10:45 58 L 17 119/57 L 08/06/19 10:37 37.0 C 64 10 L 123/53 L Pulse Ox 08/07/19 07:45 96 08/07/19 03:39 94 08/06/19 23:31 93 08/06/19 19:37 94 08/06/19 16:10 94 08/06/19 14:52 99 08/06/19 13:45 100 08/06/19 12:45 97 08/06/19 12:19 99 08/06/19 11:45 99 08/06/19 11:25 98 08/06/19 11:15 99 08/06/19 11:05 99 08/06/19 10:55 99 08/06/19 10:45 100 08/06/19 10:37 98 Pain Intensity Left Knee: Pain Intensity: 3 Notes Mental Status: alert / awake / arousable and participated in evaluation Patient Amnestic to Procedure: Yes Nausea / Vomiting: adequately controlled Pain: adequately controlled Airway Patency, RR, SpO2: stable & adequate BP & HR: stable & adequate Hydration State: stable & adequate Neuraxial Anesthesia: was administered and sensory block resolved Anesthetic Complications: no major complications apparent and Pt Satisfied with anesthetic care
[2019-08-07] MEDS: HYDROmorphone HCL 2 MG TAB PO PRN ×2 (08:48→19:58)
[2019-08-07] MEDS: MULTIVITAMIN TAB PO SCH (09:59)
[2019-08-07] MEDS: FERROUS GLUCONATE 324 MG TAB PO SCH ×2 (09:59→19:54)
[2019-08-07] MEDS: ASCORBIC ACID 500 MG TAB PO SCH (09:59)
[2019-08-07] MEDS: DOCUSATE SODIUM 100 MG CAP PO SCH ×2 (09:59→20:04)
[2019-08-07] MEDS: CHOLECALCIFEROL 1,000 UNITS TAB PO SCH (09:59)
[2019-08-07] MEDS: AMLODIPINE BESYLATE 5 MG TAB PO SCH (10:00)
[2019-08-07] MEDS: ASPIRIN 81 MG ECTAB PO SCH (10:00)
[2019-08-07] MEDS: ATENOLOL 50 MG TABLET PO SCH (10:00)
[2019-08-07] MEDS: ATORVASTATIN 40 MG TAB PO SCH (10:00)
[2019-08-07] MEDS: RIVAROXABAN 10 MG TABLET PO SCH (10:01)
--- NOTE | 2019-08-07 19:26 | Progress Note ---
DATE: 08/07/2019 SUBJECTIVE: An 78-year-old female postop day 1 from left knee replacement. She is pretty frustrated with her pain. She has been a little bit nauseated as well. Quite a bit of thigh discomfort with therapy. Denies any chest pain or shortness of breath. Not feeling dizzy or lightheaded. OBJECTIVE: VITAL SIGNS: Temperature is 36.7. Vital signs stable. GENERAL: Shows a pleasant elderly female. She is sitting up in her bed with her legs dangling and looks reasonably comfortable on exam. LUNGS: Clear to auscultation. HEART: Has an irregularly irregular rhythm. ABDOMEN: Soft, nontender, nondistended. EXTREMITIES: Grossly neurovascularly intact except as follows: Examination of the left lower extremity reveals the leg to be well aligned. Dressing is clean, dry and intact. There is no bleeding. She can dorsiflex and plantarflex her foot appropriately. She has got brisk refill. She is neurologically intact. LABORATORY DATA: Hemoglobin is 10.1. Hematocrit 29.8. Electrolytes are stable. ASSESSMENT: An 78-year-old female postoperative day 1 from left knee replacement, doing reasonably well. Having a decent amount of pain, but really did not take much in the way of pain medicine. She is having a little bit of nausea. She is neurologically intact. PLAN: 1. DVT prophylaxis including thigh-high TEDs, SCDs, and resuming xarelto at lower dose until discharge. 2. PT/OT. Weight bear as tolerated. Left total knee protocol. 3. Pain control. She is reporting quite a decent amount of pain, but concerned about taking the pain meds. We will give her some Zofran and we will cautiously give her some pain medicines in limited amounts to avoid confusion, but help control her pain. 5. Disposition: She is hoping to be discharged home with some home health and some family assistance once medically stable and pain adequately controlled. BRANDON
[2019-08-07] MEDS: SENNA 8.6 MG TAB PO SCH (20:04)
[2019-08-08] MEDS: HYDROmorphone HCL 2 MG TAB PO PRN ×3 (05:25→13:57)
[2019-08-08] MEDS: ACETAMINOPHEN 500 MG TAB PO SCH ×2 (05:26→13:57)
--- NOTE | 2019-08-08 07:45 | Progress Note ---
DATE: 08/08/2019 SUBJECTIVE: An 78-year-old female postop day 2 from a left knee replacement. She seems to be doing better this morning. Pain seems to be a little bit better controlled. A little bit more optimistic. No chest pain or shortness of breath. Not feeling dizzy or lightheaded. OBJECTIVE: VITAL SIGNS: Temperature 36.8. Vital signs stable. GENERAL: Pleasant elderly female. She is lying in bed, looks comfortable. EXTREMITIES: Examination of the left leg reveals the leg to be well aligned. Dressings in place with just a trace bit of bloody drainage inferiorly. Calf is soft and supple. She is neurologically intact. ASSESSMENT: An 78-year-old female postop day 2 from a left knee replacement, doing better. Pain seems to be better controlled. Less nausea. More optimistic. PLAN: 1. DVT prophylaxis including thigh-high TEDs, SCDs, and she is back on Xarelto. Prophylactic dose in the hospital and she will resume her normal dose on discharge. 2. PT/OT. Weight bear as tolerated. Left total knee protocol. 3. Pain control, doing okay with current pain regimen. We will continue to limit narcotics to avoid confusion and nausea. 4. Disposition: Plan to discharge to home with some home health. We will see how she does today. Discharge is pending.
[2019-08-08] MEDS: FERROUS GLUCONATE 324 MG TAB PO SCH (08:50)
[2019-08-08] MEDS: MULTIVITAMIN TAB PO SCH (08:50)
[2019-08-08] MEDS: CHOLECALCIFEROL 1,000 UNITS TAB PO SCH (08:51)
[2019-08-08] MEDS: AMLODIPINE BESYLATE 5 MG TAB PO SCH (08:51)
[2019-08-08] MEDS: ASPIRIN 81 MG ECTAB PO SCH (08:51)
[2019-08-08] MEDS: DOCUSATE SODIUM 100 MG CAP PO SCH (08:51)
[2019-08-08] MEDS: ATENOLOL 50 MG TABLET PO SCH (08:51)
[2019-08-08] MEDS: ASCORBIC ACID 500 MG TAB PO SCH (08:51)
[2019-08-08] MEDS: ATORVASTATIN 40 MG TAB PO SCH (08:51)
[2019-08-08] MEDS: RIVAROXABAN 10 MG TABLET PO SCH (08:52)
--- NOTE | 2019-08-12 15:45 | Discharge Summary ---
ADMITTING PHYSICIAN AND SURGEON: Dr. Bill Boothe. ADMITTING DIAGNOSIS: Left knee degenerative joint disease. SURGERY PERFORMED: Left total knee arthroplasty. SECONDARY DIAGNOSES: Atrial fibrillation, hypertension, history of TIA, arthritis. CONSULTS: None obtained. HISTORY AND PHYSICAL EXAMINATION: Well documented in the patient's chart. HOSPITAL COURSE: The patient was admitted on 08/06/2019 underwent total knee arthroplasty, tolerated the procedure well. There were no complications. She was transferred to the PACU postoperatively and later to the orthopedic floor for further care. She was given Ancef for antibiotic prophylaxis, SHARAN stockings, SCDs and Xarelto for DVT prophylaxis. Hemoglobin, hematocrit and vital signs were monitored during her hospital stay and remained stable. She did not require any blood transfusions. There were no complications. By postoperative day 2, she was tolerating a regular diet, pain was reasonably controlled at that point. She was having some nausea. She was participating in physical therapy. On postop day 2, she was discharged home with home health services. She was given printed discharge instructions as well as new prescriptions for Tylenol, hydromorphone and Zofran. Continue her home medicines. Continue physical therapy, weightbearing as tolerated, SHARAN stockings. Follow up approximately 2 weeks postop or sooner if there are any problems or concerns.
== END 2019-08-08 16:44 | disposition home health service (06) | DRG 470 ==
LOC: ASU 06:29 → 3E 10:40

== ENCOUNTER 2021-01-05 13:39 | Inpatient (IN) ==
[2021-01-05] MEDS ORDERED: ONDANSETRON INJ 2 MG/ML 2 ML VIAL IV STA (15:29)
[2021-01-05] MEDS ORDERED: SODIUM CHLORIDE 0.9% 1000ML 1,000 ML IV SCH (15:30)
[2021-01-05] MEDS ORDERED: SODIUM CHLORIDE 0.9% 500 ML IV SCH (15:30)
[2021-01-05] MEDS ORDERED: ALBUT/IPRATROP 3MG/0.5MG NEB 3 ML VIAL NEB STA (15:49)
[2021-01-05] MEDS ORDERED: methylPREDNISolone 125 MG/2 ML VIAL IV STA (15:49)
[2021-01-05 16:01] LABS: Basophils # (auto) 0.01 K/uL (0-0.2); Basophils % (auto) 0.1 %; Eosinophils # (auto) 0.01 K/uL (0-0.5); Eosinophils % (auto) 0.1 %; Hematocrit (blood only) 44.8 % (37-47); Hemoglobin 15.2 g/dL (12.0-16.0); Immature Granulocytes # (auto) 0.01 K/uL (0.00-0.02); Immature Granulocytes % (auto) 0.1 %; Lymphocytes # (auto) 0.52 K/uL (1.2-3.4); Lymphocytes % (auto) 4.8 %; Mean Corpuscular Hemoglobin 31.5 pg (25-34); Mean Corpuscular Hgb Conc 33.9 g/dL (32-36); Mean Corpuscular Volume 92.8 fL (80-100); Mean Platelet Volume 10.4 fL (7.4-10.4); Monocytes # (auto) 0.43 K/uL (0.11-0.59); Neutrophils # (auto) 9.77 K/uL (1.4-6.5); Neutrophils % (auto) 90.9 %; Platelet Count 186 K/uL (130-400); RDW Coefficient of Variation 13.3 % (11.5-14.5); RDW Standard Deviation 45.3 fL (36.4-46.3); Red Blood Count 4.83 M/uL (4.2-5.4); White Blood Count 10.75 K/uL (4.8-10.8)
[2021-01-05 16:17] LABS: Albumin Level 4.2 gm/dl (3.4-5.0); BUN Creatinine Ratio 18.5 (10-20); Creatinine Clr Calc Pharmacy 54.2 ml/min; Est GFR (African American) 90.4 ml/min; Magnesium 2.1 mg/dl (1.8-2.4); Potassium 4.1 mmol/L (3.5-5.1)
[2021-01-05 16:27] LABS: Albumin Globulin Ratio 1.2 (0.9-2); Bilirubin,Total 2.8 mg/dl (0.2-1); Globulin 3.4 gm/dl (2.5-4.0); Thyroid Stimulating Hormone 0.672 uIu/ml (0.300-4.500); Total Protein 7.6 gm/dl (6.4-8.2)
--- NOTE | 2021-01-05 16:38 | XRay Report ---
XR chest 1V portable CLINICAL HISTORY: weakness COMPARISON STUDY: Chest radiograph July 11, 2019. FINDINGS: Lung volumes are normal. There is no pneumothorax or pleural effusion. There is no consolid ation. Mild cardiomegaly is noted. There is pulmonary vascular congestion with possible mild pulmonar y edema. No consolidation is identified. IMPRESSION: Pulmonary vascular congestion with possible mild pulmonary edema. ACT 112: Negative or not required by law. Electronically signed by: Bennett Montero M.D. 01/05/2021 4:37 PM
[2021-01-05] MEDS ORDERED: FUROSEMIDE 40 MG/4 ML VIAL IV STA ×2 (17:08→18:26)
[2021-01-05 17:17] LABS: Appearance Urine Clear (Clear); Bilirubin Urine Negative (Negative); Blood Urine Negative (Negative); Color Urine Yellow; Glucose Urine UA Negative (Negative); Ketones Urine Trace (Negative); Leukocyte Esterase Urine Negative (Negative); Nitrite Urine Negative (Negative); Protein Urine Negative (Negative); Urobilinogen Urine Negative (Negative)
[2021-01-05 17:20] LABS: D Dimer < 190 ug/L FEU (0-500)
--- NOTE | 2021-01-05 17:58 | Electrocardiogram Report ---
Test Reason : Blood Pressure : / mmHG Vent. Rate : 084 BPM Atrial Rate : 069 BPM P-R Int : 000 ms QRS Dur : 092 ms QT Int : 378 ms P-R-T Axes : 000 079 -50 degrees QTc Int : 446 ms Atrial fibrillation Abnormal ECG When compared with ECG of 11-JUL-2019 09:17, Vent. rate has increased BY 34 BPM Non-specific change in ST segment in Inferior leads ST now depressed in Lateral leads T wave inversion now evident in Inferior leads Confirmed by Jayy Baumann ([id number] on 01/05/2021 5:58:20 PM Referred By: Confirmed By:Bk Baumann
--- NOTE | 2021-01-05 18:07 | History & Physical Report ---
Date of Service January 05, 2021 Assessment & Plan (1) Asthma with exacerbation: 24 hours of flu-like symptoms c/w viral syndrome. Asthma flare likely 2nd to viral process. Shortly after I saw her I checked procal - this was negative. Doubt bacterial process thus defer on antibiotics. COVID negative, and patient is fully vaccinated. Checked flu and RSV - both negative. CXR with infiltrates -- viral? pulmonary edema? Plan - * solumedrol 30mg IV q8h * scheduled bronchodilators * flutter valve * incentive ana maria * tessalon prn * mucinex BID * again defer on abx for now * trial of lasix if indeed she has mild pulmonary edema - 20mg IV x 1; reassess for further diuretic tomorrow (2) Acute respiratory failure with hypoxia: 2nd asthma exacerbation. can't rule out a viral pneumonia. can't rule out acute pulmonary edema / acute diastolic CHF. see above. supportive care, NC O2, nebs, etc. (3) Viral syndrome: <24 hours of flu-like symptoms suggestive of viral process. COVID neg. Flu/RSV neg. Doubt bacterial process at this time. (4) Permanent atrial fibrillation: Rates largely controlled upon admission. Continue atenolol. Continue xarelto. Place on med/tele. (5) HTN (hypertension): Continue atenolol. Continue amlodipine. BPs mildly high upon admission - trend, and adjust meds if needed. (6) Abnormal CXR: b/l infiltrates -- viral process? pulm edema? trial of lasix 20mg IV x 1 if it is pulm edema. if she has response to the lasix consider additional diuretic tomorrow. consider repeat echo - last was a few years ago. EF preserved at that time. if she indeed has pulmonary edema this is likely due to diastolic dysfunction in the setting of a.fib and illness. (7) History of stroke: noted continue xarelto for secondary prevention (8) Chronic kidney disease, stage 3a: baseline CrCl 50s trend Cr while hospitalized for stability (9) DVT prophylaxis: xarelto 20mg daily History of Present Illness Chief Complaint: sore throat, cough Primary Care Provider: Vlad Leach MD 80yo female with h/o asthma, permanent a.fib, and prior stroke presents with cough, wheezing, sore throat. All symptoms began yesterday late in the day very suddenly. Cough was worse with laying flat overnight. Had headache last pm as well. Cough is mildly productive of sputum today. Tried her albuterol at home which gave relief of her symptoms. No fevers. No chills. Some aches. No loss of taste or smell. Had 2-shot COVID vaccine series earlier in September. Came to ER today because cough and dyspnea along with wheezing worsened through the day and her family encouraged her to get checked. Neb treatment in the ER while awaiting admission was helpful with respiratory symptoms. Allergies Allergy/AdvReac Type Severity Reaction Status Date / Time oxycodone Allergy Severe anaphylaxis Verified 01/05/21 16:24 codeine Allergy Mild hives Verified 01/05/21 16:24 Penicillins Allergy Mild rash Verified 01/05/21 16:24 lisinopril Allergy Unknown lips Verified 01/05/21 16:24 swelling acetaminophen [From Tylox] Allergy "slow" Verified 01/05/21 16:24 breathing levofloxacin [From Levaquin] Allergy unknown Verified 01/05/21 16:24 reaction Home Medications Medication Instructions Recorded Confirmed Type aspirin 81 mg tablet,delayed 81 mg PO QAM tab 02/12/19 01/05/21 History release cholecalciferol (vitamin D3) 50 2,000 units PO HS #30 cap 02/12/19 01/05/21 History mcg (2,000 unit) capsule ascorbic acid (vitamin C) [Vitamin 500 mg PO HS 07/10/19 01/05/21 History C] albuterol sulfate 90 mcg/actuation 2 puff INHALATION Q6H PRN #18 g 09/22/20 01/05/21 Rx aerosol inhaler alendronate 70 mg tablet 70 mg PO .Weekly #12 tab 10/22/20 01/05/21 Rx amlodipine 5 mg PO HS 01/05/21 01/05/21 History atenolol 50 mg PO QAM 01/05/21 01/05/21 History atorvastatin 40 mg PO HS 01/05/21 01/05/21 History rivaroxaban [Xarelto] 20 mg PO HS 01/05/21 01/05/21 History Past Med/Surg History Medical History (Updated 01/06/21 @ 11:31 by Mynor Mckenna) Asthma 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= no definitive residual effects Hyperlipidemia Hypertension Osteoarthritis Permanent atrial fibrillation Poor historian Pulmonary infiltrate present on computed tomography Skin cancer Venous insufficiency of left leg Voice hoarsenesses Surgical History History of left knee replacement History of tonsillectomy Hx of abdominal surgery EXCISION LIPOMA - RIGHT Hx of breast surgery EXCISION LIPOMA --RIGHT Hx of colonoscopy Hx of hysterectomy S/P thyroid biopsy Status post Mohs surgery chemosurgery Family History Son Diabetes Father , Age 74 Acute myocardial infarction Mother , Age 78 Breast cancer Brother Pacemaker Intellectual disability Family/Other Coronary heart disease Social History (Updated 01/05/21 @ 18:06 by Mynor Mckenna) Smoking Status: Never smoker packs per day: 0.5; Years Smoked: 0.5; Second Hand Exposure: No; Hx Alcohol Use: No Hx Substance Use: No Preferred Language: Japanese Communication Ability: Effective Visual Impairment: Limited Hearing Ability: Normal Digitizer Required: No Beliefs That Will Affect Care: None marital status: / Current Living Situation: Alone current occupational status: retired 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 How many Children do You have: 3 other: [place] by [place] Feels Safe at Home: Yes Safety Concerns: Feels Safe At This Time Childhood Exposure to Second-Hand Smoke: No caffeine: Yes Dental Care, Regularly: Yes Physical Activity Frequency: Daily Physical Activity Frequency Comment: nellying mely Seatbelt Use: always Sunscreen Use: Yes Do you think of yourself as: straight/heterosexual Assistive Devices: Glasses Review of Systems Constitutional: + body aches and + anorexia; no fever and no chills Eyes: no worsening vision Ear, Nose, Mouth, Throat: + sore throat; no nasal congestion and no dysphagia Respiratory: + cough, + dyspnea on exertion, + sputum production and + wheezing Cardiovascular: + orthopnea and + edema (chronic, left foot ); no chest pain Gastrointestinal: + diarrhea/loose stools Genitourinary: no dysuria Musculoskeletal: + joint pain and + body aches Integumentary: no rash Neurologic: no numbness and no paresthesia Psychiatric: no depression and no confusion Endocrine: no diabetes Hematologic / Lymphatic: + easy bruising Physical Exam Constitutional: well developed and well nourished; no acute distress and no altered mental status coughing but no respiratory distress Eyes: PERRL ENMT: Ears: no TM abnormality Mouth: + oropharynx abnormality (tiny ulceration right posterior through; erythema; no exudates ) Neck: trachea midline, no thyromegaly Respiratory: no respiratory distress Auscultation: + crackles (mild - bases), + wheezes and + bronchovesicular breath sounds (diffuse b/l all lung segments ); no diminished lung sounds Cardiovascular: Rate/Rhythm: + tachycardic and + irregularly irregular Heart Sounds: normal S1 and normal S2; no murmur Vessels: + JVD (difficult to assess - perhaps mild ), posterior tibial pulses present and dorsalis pedis pulses present Extremities: + edema (focal - left ankle only ) Gastrointestinal (Abdomen): normal bowel sounds, soft, nontender, no hepatosplenomegaly Musculoskeletal: no cyanosis or clubbing, extremities motor strength 5/5 Skin: no rashes, warm and dry Neurologic: deep tendon reflexes 2+ bilaterally and moves all extremities Psychiatric: A+Ox3, euthymic affect Lymphatic: no cervical lymphadenopathy Results & Data Results & Data ([facility]) Vital Signs (Past 12 Hours) Vital Signs Temp Pulse Pulse Resp BP Pulse Ox 01/05/21 17:30 99 H 19 154/70 H 01/05/21 17:02 112 H 33 H 94 01/05/21 17:01 112 H 22 132/86 90 01/05/21 17:00 108 H 23 01/05/21 16:55 30 H 86 L 01/05/21 16:30 98 H 24 168/73 H 96 01/05/21 16:07 86 18 99 01/05/21 16:00 81 24 97 01/05/21 15:54 85 30 H 93 01/05/21 15:30 98 H 23 172/85 H 98 01/05/21 15:26 106 H 22 01/05/21 15:19 99 H 22 173/83 H 01/05/21 13:52 36.8 C 104 H 20 185/81 H 92 Laboratory Results Microbiology 01/05/21 16:01 Blood Aerobic Blood Culture - Pending 01/05/21 16:01 Blood Anaerobic Blood Culture - Pending 01/05/21 15:45 Blood Aerobic Blood Culture - Pending 01/05/21 15:45 Blood Anaerobic Blood Culture - Pending Labs 01/05/21 01/05/21 01/05/21 15:42 15:45 15:45 WBC 10.75 RBC 4.83 Hgb 15.2 Hct 44.8 MCV 92.8 MCH 31.5 MCHC 33.9 RDW Std Deviation 45.3 RDW Coeff of Kimberly 13.3 Plt Count 186 MPV 10.4 Immature Gran % (Auto) 0.1 Neut % (Auto) 90.9 Lymph % (Auto) 4.8 [place] % (Auto) 4.0 Eos % (Auto) 0.1 Baso % (Auto) 0.1 Neut # (Auto) 9.77 H Lymph # (Auto) 0.52 L [place] # (Auto) 0.43 Eos # (Auto) 0.01 Baso # (Auto) 0.01 Immature Gran # (Auto) 0.01 D-Dimer Sodium 136 Potassium 4.1 Chloride 104 Carbon Dioxide 25 Anion Gap 7.0 BUN 13 Creatinine 0.72 Est Cr Clr Drug Dosing 54.2 Est GFR ( Amer) 90.4 Est GFR (Non-Af Amer) 78.0 BUN/Creatinine Ratio 18.5 Glucose 134 H Lactate Calcium 10.0 Magnesium 2.1 Total Bilirubin 2.8 H AST 25 ALT 27 Alkaline Phosphatase 108 NT-Pro-B Natriuret Pep 1116 Total Protein 7.6 Albumin 4.2 Globulin 3.4 Albumin/Globulin Ratio 1.2 Procalcitonin TSH 0.672 Urine Color Urine Appearance Urine pH Ur Specific [place] Urine Protein Urine Glucose (UA) Urine Ketones Urine Blood Urine Nitrite Urine Bilirubin Urine Urobilinogen Ur Leukocyte Esterase COVID-19 Eval Order SARS-CoV-2 (PCR) Influ A Molecular Assay Influ B Molecular Assay RSV (Molecular) Group A Strep (PCR) NOT DETECTED 01/05/21 01/05/21 01/05/21 15:45 15:46 15:46 WBC RBC Hgb Hct MCV MCH MCHC RDW Std Deviation RDW Coeff of Kimberly Plt Count MPV Immature Gran % (Auto) Neut % (Auto) Lymph % (Auto) [place] % (Auto) Eos % (Auto) Baso % (Auto) Neut # (Auto) Lymph # (Auto) [place] # (Auto) Eos # (Auto) Baso # (Auto) Immature Gran # (Auto) D-Dimer < 190 Sodium Potassium Chloride Carbon Dioxide Anion Gap BUN Creatinine Est Cr Clr Drug Dosing Est GFR ( Amer) Est GFR (Non-Af Amer) BUN/Creatinine Ratio Glucose Lactate Calcium Magnesium Total Bilirubin AST ALT Alkaline Phosphatase NT-Pro-B Natriuret Pep Total Protein Albumin Globulin Albumin/Globulin Ratio Procalcitonin TSH Urine Color Urine Appearance Urine pH Ur Specific [place] Urine Protein Urine Glucose (UA) Urine Ketones Urine Blood Urine Nitrite Urine Bilirubin Urine Urobilinogen Ur Leukocyte Esterase COVID-19 Eval Order Covid19 at [facility] SARS-CoV-2 (PCR) NEGATIVE Influ A Molecular Assay Influ B Molecular Assay RSV (Molecular) Group A Strep (PCR) 01/05/21 01/05/21 01/05/21 15:46 16:01 17:00 WBC RBC Hgb Hct MCV MCH MCHC RDW Std Deviation RDW Coeff of Kimberly Plt Count MPV Immature Gran % (Auto) Neut % (Auto) Lymph % (Auto) [place] % (Auto) Eos % (Auto) Baso % (Auto) Neut # (Auto) Lymph # (Auto) [place] # (Auto) Eos # (Auto) Baso # (Auto) Immature Gran # (Auto) D-Dimer Sodium Potassium Chloride Carbon Dioxide Anion Gap BUN Creatinine Est Cr Clr Drug Dosing Est GFR ( Amer) Est GFR (Non-Af Amer) BUN/Creatinine Ratio Glucose Lactate 1.6 Calcium Magnesium Total Bilirubin AST ALT Alkaline Phosphatase NT-Pro-B Natriuret Pep Total Protein Albumin Globulin Albumin/Globulin Ratio Procalcitonin TSH Urine Color Yellow Urine Appearance Clear Urine pH 8.0 H Ur Specific [place] 1.010 Urine Protein Negative Urine Glucose (UA) Negative Urine Ketones Trace H Urine Blood Negative Urine Nitrite Negative Urine Bilirubin Negative Urine Urobilinogen Negative Ur Leukocyte Esterase Negative COVID-19 Eval Order SARS-CoV-2 (PCR) Influ A Molecular Assay Negative Influ B Molecular Assay Negative RSV (Molecular) Negative Group A Strep (PCR) 01/05/21 18:38 WBC RBC Hgb Hct MCV MCH MCHC RDW Std Deviation RDW Coeff of Kimberly Plt Count MPV Immature Gran % (Auto) Neut % (Auto) Lymph % (Auto) [place] % (Auto) Eos % (Auto) Baso % (Auto) Neut # (Auto) Lymph # (Auto) [place] # (Auto) Eos # (Auto) Baso # (Auto) Immature Gran # (Auto) D-Dimer Sodium Potassium Chloride Carbon Dioxide Anion Gap BUN Creatinine Est Cr Clr Drug Dosing Est GFR ( Amer) Est GFR (Non-Af Amer) BUN/Creatinine Ratio Glucose Lactate Calcium Magnesium Total Bilirubin AST ALT Alkaline Phosphatase NT-Pro-B Natriuret Pep Total Protein Albumin Globulin Albumin/Globulin Ratio Procalcitonin < 0.05 TSH Urine Color Urine Appearance Urine pH Ur Specific [place] Urine Protein Urine Glucose (UA) Urine Ketones Urine Blood Urine Nitrite Urine Bilirubin Urine Urobilinogen Ur Leukocyte Esterase COVID-19 Eval Order SARS-CoV-2 (PCR) Influ A Molecular Assay Influ B Molecular Assay RSV (Molecular) Group A Strep (PCR) Diagnostic Findings Chest X-Ray 01/05/21 15:29 XR chest 1V portable CLINICAL HISTORY: weakness COMPARISON STUDY: Chest radiograph July 11, 2019. FINDINGS: Lung volumes are normal. There is no pneumothorax or pleural effusion. There is no consolidation. Mild cardiomegaly is noted. There is pulmonary vascular congestion with possible mild pulmonary edema. No consolidation is identified. IMPRESSION: Pulmonary vascular congestion with possible mild pulmonary edema. ACT 112: Negative or not required by law. Electronically signed by: Bennett Montero M.D. 01/05/2021 4:37 PM EKG - a.fib, inferior ST segment depressions Code Status & VTE Plan Code Status DNR/DNI VTE Prophylaxis Plan VTE Prophylaxis will be ordered: Yes PG Care Time/CCT Total # of Minutes Spent Total Time Spent with Patient: Total time spent is greater than 50% in coordination of care (as documented) at patient's floor/unit and/or counseling patient: Coding Level of Care Code 48766 Initial Inpt Care Lvl 3 Diagnoses Asthma with exacerbation J45.31 Asthma severity: mild Asthma persistence: persistent Acute respiratory failure with hypoxia J96.01 Viral syndrome B34.9 Permanent atrial fibrillation I48.21 HTN (hypertension) I10 Hypertension type: essential hypertension Abnormal CXR R93.89 History of stroke Z86.73 Chronic kidney disease, stage 3a N18.31 DVT prophylaxis Z29.9 (1) Asthma with exacerbation Asthma severity: mild Asthma persistence: persistent Qualified Code(s): J45.31 - Mild persistent asthma with (acute) exacerbation (2) HTN (hypertension) Hypertension type: essential hypertension Qualified Code(s): I10 - Essential (primary) hypertension
[2021-01-05 19:09] LABS: Influenza A virus by PCR Negative (Negative); Influenza B virus by PCR Negative (Negative); RSV by PCR Negative (Negative)
[2021-01-05] MEDS ORDERED: IPRATROPIUM BROMIDE NEB SOLN 0.02% 2.5 ML VIAL INH SCH (20:24)
[2021-01-05] MEDS ORDERED: XOPENEX/ATROVENT 1.25mg/0.5MG NEB COMBO NEB SCH (20:24)
[2021-01-05] MEDS ORDERED: BENZONATATE 100 MG CAPSULE PO PRN (20:24)
[2021-01-05] MEDS ORDERED: ONDANSETRON INJ 2 MG/ML 2 ML VIAL IV PRN (20:24)
--- NOTE | 2021-01-05 20:35 | Emergency Department Note ---
History of Present Illness General Chief complaint: Illness Stated complaint: NAUSEA,SORE THROAT,WHEEZING,SHELDON,COUGH,MALIK Time Seen by Provider: 01/05/21 15:25 Source: patient Mode of arrival: ambulatory Limitations: no limitations History of Present Illness Provider complaint: Nausea sore throat, shortness of breath with cough and headache This patient is an 80-year-old female who presents to the emergency department with complaints of increasing shortness of breath, cough, nausea and headache. She states she has a history of asthma and has been using her inhalers. Patient admits to shortness of breath with exertion. She developed a sore throat last night and does not feel she is able to keep up with her food and fluids. She denies any vomiting or diarrhea. Patient does have a his atrial fibrillation an d is anticoagulated. Home Medications Medication Instructions Recorded Confirmed Type aspirin 81 mg tablet,delayed 81 mg PO QAM tab 02/12/19 01/05/21 History release cholecalciferol (vitamin D3) 50 2,000 units PO HS #30 cap 02/12/19 01/05/21 History mcg (2,000 unit) capsule ascorbic acid (vitamin C) [Vitamin 500 mg PO HS 07/10/19 01/05/21 History C] alendronate 70 mg tablet 70 mg PO .Weekly #12 tab 10/22/20 01/05/21 Rx Xarelto 20 mg PO HS 01/05/21 01/05/21 History amlodipine 5 mg PO HS 01/05/21 01/05/21 History atenolol 50 mg PO QAM 01/05/21 01/05/21 History atorvastatin 40 mg PO HS 01/05/21 01/05/21 History albuterol sulfate [Ventolin HFA] 2 puff INHALATION Q6H PRN #18 g 01/09/21 Rx azithromycin 250 mg PO QAM #3 tab 01/09/21 Rx guaifenesin [Mucinex] 600 mg PO Q12 #20 tab 01/09/21 Rx olodaterol [Striverdi Respimat] 2 puff INHALATION DAILY #1 inhaler 01/09/21 Rx prednisone 10 mg PO UD #40 tab 01/09/21 Rx Allergies Allergy/AdvReac Type Severity Reaction Status Date / Time oxycodone Allergy Severe anaphylaxis Verified 01/05/21 16:24 codeine Allergy Mild hives Verified 01/05/21 16:24 Penicillins Allergy Mild rash Verified 01/05/21 16:24 lisinopril Allergy Unknown lips Verified 01/05/21 16:24 swelling acetaminophen [From Tylox] Allergy "slow" Verified 01/05/21 16:24 breathing levofloxacin [From Levaquin] Allergy unknown Verified 01/05/21 16:24 reaction Past Med/Surg History Medical History Asthma 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= no definitive residual effects Hyperlipidemia Hypertension Osteoarthritis Permanent atrial fibrillation Poor historian Pulmonary infiltrate present on computed tomography Skin cancer Venous insufficiency of left leg Voice hoarsenesses Surgical History History of left knee replacement History of tonsillectomy Hx of abdominal surgery EXCISION LIPOMA - RIGHT Hx of breast surgery EXCISION LIPOMA --RIGHT Hx of colonoscopy Hx of hysterectomy S/P thyroid biopsy Status post Mohs surgery chemosurgery Family History Son Diabetes Father , Age 74 Acute myocardial infarction Mother , Age 78 Breast cancer Brother Pacemaker Intellectual disability Family/Other Coronary heart disease Social History Smoking Status: Never smoker packs per day: 0.5; Years Smoked: 0.5; Second Hand Exposure: No; Hx Alcohol Use: No Hx Substance Use: No Preferred Language: Gambian Communication Ability: Effective Visual Impairment: Limited Hearing Ability: Normal Sports Umpire Required: No Beliefs That Will Affect Care: None marital status: / Current Living Situation: Alone current occupational status: retired 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 and A total of 10 systems reviewed and were otherwise negative Physical Exam Vital Signs Vital Signs - 24 hr 01/05/21 13:52 01/05/21 15:19 01/05/21 15:26 Temperature 36.8 C Temperature Source Temporal Artery Scan Pulse Rate 104 H 99 H 106 H Pulse Rate [Right Finger] Pulse Rate from SpO2 Sensor Pulse Rhythm Regular Pulse Strength Normal Respiratory Rate 20 22 22 Respiratory Effort / Characteristics Non-Labored Spontaneous Respiratory Depth Normal Respiratory Pattern Blood Pressure 185/81 H 173/83 H Blood Pressure Mean 115 113 Blood Pressure Position Sitting Pulse Oximetry 92 Oxygen Delivery Method Room Air Oxygen Flow Rate Sepsis Recent Fever Within 48 Hours No Sepsis New/Unexplained Change in Mental Status N/A Sepsis Action Taken by Nursing No Action Required 01/05/21 15:30 01/05/21 15:54 01/05/21 16:00 Temperature Temperature Source Pulse Rate 98 H 85 81 Pulse Rate [Right Finger] Pulse Rate from SpO2 Sensor 98 H 86 Pulse Rhythm Irregular Pulse Strength Respiratory Rate 23 30 H 24 Respiratory Effort / Characteristics Respiratory Depth Respiratory Pattern Blood Pressure 172/85 H Blood Pressure Mean 114 Blood Pressure Position Pulse Oximetry 98 93 97 Oxygen Delivery Method Nasal Cannula Room Air Nasal Cannula Oxygen Flow Rate 2 2 Sepsis Recent Fever Within 48 Hours Sepsis New/Unexplained Change in Mental Status Sepsis Action Taken by Nursing 01/05/21 16:07 01/05/21 16:30 01/05/21 16:55 Temperature Temperature Source Pulse Rate 98 H Pulse Rate [Right Finger] 86 Pulse Rate from SpO2 Sensor 104 H Pulse Rhythm Pulse Strength Respiratory Rate 18 24 30 H Respiratory Effort / Characteristics Non-Labored Spontaneous Spontaneous Labored Nasal Flaring Pursed Lip Respiratory Depth Retractive Respiratory Pattern Tachypnea Blood Pressure 168/73 H Blood Pressure Mean 104 Blood Pressure Position Pulse Oximetry 99 96 86 L Oxygen Delivery Method Nasal Cannula Room Air Oxygen Flow Rate 2 Sepsis Recent Fever Within 48 Hours Sepsis New/Unexplained Change in Mental Status Sepsis Action Taken by Nursing 01/05/21 17:00 01/05/21 17:01 01/05/21 17:02 Temperature Temperature Source Pulse Rate 108 H 112 H 112 H Pulse Rate [Right Finger] Pulse Rate from SpO2 Sensor 108 H 109 H 110 H Pulse Rhythm Pulse Strength Respiratory Rate 23 22 33 H Respiratory Effort / Characteristics Respiratory Depth Respiratory Pattern Blood Pressure 132/86 Blood Pressure Mean 101 Blood Pressure Position Pulse Oximetry 90 94 Oxygen Delivery Method Nasal Cannula Oxygen Flow Rate 2 Sepsis Recent Fever Within 48 Hours Sepsis New/Unexplained Change in Mental Status Sepsis Action Taken by Nursing 01/05/21 17:30 01/05/21 18:00 Temperature Temperature Source Pulse Rate 99 H 101 H Pulse Rate [Right Finger] Pulse Rate from SpO2 Sensor Pulse Rhythm Pulse Strength Respiratory Rate 19 30 H Respiratory Effort / Characteristics Respiratory Depth Respiratory Pattern Blood Pressure 154/70 H 161/70 H Blood Pressure Mean 98 100 Blood Pressure Position Pulse Oximetry 95 Oxygen Delivery Method Oxygen Flow Rate 2 Sepsis Recent Fever Within 48 Hours Sepsis New/Unexplained Change in Mental Status Sepsis Action Taken by Nursing Vital signs reviewed. General: Elderly generally well-appearing 80-year-old female, in no significant distress. HEENT: No scleral icterus, PERRLA, neck supple. Atraumatic. Cardiovascular: Regular rate and rhythm, no extra sounds. Pulmonary: Wheezing to auscultation bilaterally, slightly increased work of breathing requiring nasal cannula oxygen Abdomen: Soft, nontender, nondistended, positive bowel sounds. Musculoskeletal: Atraumatic, no peripheral edema. Neurologic: Patient awake alert and oriented x 3 Skin: Warm, dry, no rash Course Administered Medications Discontinued Medications Albuterol (Albut/Ipratrop 3mg/0.5mg Neb 3 Ml Vial) 3 ml NEB NOW STA Stop: 01/05/21 15:50 Last Admin: 01/05/21 16:06 Dose: 3 ml Documented by: [id number] Amlodipine Besylate (Amlodipine Besylate 5 Mg Tab) 5 mg PO [facility] Stop: 02/04/21 20:59 Last Admin: 01/08/21 20:46 Dose: 5 mg Documented by: [id number] Admin: 01/07/21 19:56 Dose: 5 mg Documented by: [id number] Admin: 01/06/21 20:09 Dose: 5 mg Documented by: [id number] Admin: 01/05/21 21:34 Dose: 5 mg Documented by: [id number] Aspirin (Aspirin 81 Mg Ectab) 81 mg PO [facility] Stop: 02/05/21 08:59 Last Admin: 01/09/21 08:02 Dose: 81 mg Documented by: [id number] Admin: 01/08/21 08:34 Dose: 81 mg Documented by: [id number] Admin: 01/07/21 08:41 Dose: 81 mg Documented by: [id number] Admin: 01/06/21 08:53 Dose: 81 mg Documented by: [id number] Atenolol (Atenolol 50 Mg Tablet) 50 mg PO QAM JUNAID Stop: 02/05/21 08:59 Last Admin: 01/09/21 08:02 Dose: 50 mg Documented by: [id number] Admin: 01/08/21 08:34 Dose: 50 mg Documented by: [id number] Admin: 01/07/21 08:41 Dose: 50 mg Documented by: [id number] Admin: 01/06/21 08:53 Dose: 50 mg Documented by: [id number] Atorvastatin Calcium (Atorvastatin 40 Mg Tab) 40 mg PO HS JUNAID Stop: 02/04/21 20:59 Last Admin: 01/08/21 20:45 Dose: 40 mg Documented by: [id number] Admin: 01/07/21 19:56 Dose: 40 mg Documented by: [id number] Admin: 01/06/21 20:10 Dose: 40 mg Documented by: [id number] Admin: 01/05/21 21:35 Dose: 40 mg Documented by: [id number] Azithromycin (Azithromycin 250 Mg Tab) 500 mg PO ONE ONE Stop: 01/08/21 19:01 Last Admin: 01/08/21 20:44 Dose: 500 mg Documented by: [id number] Furosemide (Furosemide 40 Mg/4 Ml Vial) 40 mg IV NOW STA Stop: 01/05/21 17:09 Last Admin: 01/05/21 18:36 Dose: Not Given Documented by: [id number] Furosemide (Furosemide 40 Mg/4 Ml Vial) 20 mg IV NOW STA Stop: 01/05/21 18:27 Last Admin: 01/05/21 18:47 Dose: 20 mg Documented by: [id number] Guaifenesin (Guaifenesin 600 Mg Tabcr) 600 mg PO Q12 JUNAID Stop: 02/04/21 20:59 Last Admin: 01/09/21 08:02 Dose: 600 mg Documented by: [id number] Admin: 01/08/21 20:45 Dose: 600 mg Documented by: [id number] Admin: 01/08/21 08:34 Dose: 600 mg Documented by: [id number] Admin: 01/07/21 19:56 Dose: 600 mg Documented by: [id number] Admin: 01/07/21 08:41 Dose: 600 mg Documented by: [id number] Admin: 01/06/21 20:10 Dose: 600 mg Documented by: [id number] Admin: 01/06/21 08:53 Dose: 600 mg Documented by: [id number] Admin: 01/05/21 21:35 Dose: 600 mg Documented by: [id number] Sodium Chloride (Nss) 500 mls @ 999 mls/hr IV .Q31M JUNAID Stop: 01/05/21 16:00 Last Infusion: 01/05/21 16:52 Dose: 0 mls/hr Documented by: [id number] Admin: 01/05/21 15:43 Dose: 999 mls/hr Documented by: [id number] Sodium Chloride (Nss 1000ml) 1,000 mls @ 100 mls/hr IV .Q10H JUNAID Stop: 01/06/21 01:29 Last Infusion: 01/05/21 20:25 Dose: 0 mls/hr Documented by: [id number] Admin: 01/05/21 15:43 Dose: 100 mls/hr Documented by: [id number] Methylprednisolone 30 mg/ (Syringe) 0.48 mls @ 1.5 mls/min IV Q8H JUNAID Stop: 02/04/21 21:59 Last Admin: 01/06/21 06:14 Dose: 1.5 mls/min Documented by: [id number] Admin: 01/05/21 21:34 Dose: 1.5 mls/min Documented by: [id number] Methylprednisolone 30 mg/ (Syringe) 0.48 mls @ 1.5 mls/min IV Q12H JUNAID Stop: 01/07/21 00:01 Last Admin: 01/06/21 18:39 Dose: 1.5 mls/min Documented by: [id number] Ipratropium [place] (Ipratropium [place] Neb Soln 0.02% 2.5 Ml Vial) 0.5 mg INH Q6R JUNAID Stop: 02/05/21 00:59 Last Admin: 01/09/21 07:31 Dose: 0.5 mg Documented by: [id number] Admin: 01/09/21 01:00 Dose: 0.5 mg Documented by: [id number] Admin: 01/08/21 20:20 Dose: 0.5 mg Documented by: [id number] Admin: 01/08/21 13:06 Dose: 0.5 mg Documented by: [id number] Admin: 01/08/21 07:33 Dose: 0.5 mg Documented by: [id number] Admin: 01/08/21 01:33 Dose: 0.5 mg Documented by: [id number] Admin: 01/07/21 20:14 Dose: 0.5 mg Documented by: [id number] Admin: 01/07/21 13:07 Dose: 0.5 mg Documented by: [id number] Admin: 01/07/21 07:21 Dose: 0.5 mg Documented by: [id number] Admin: 01/07/21 00:57 Dose: Not Given Documented by: [id number] Admin: 01/06/21 19:17 Dose: 0.5 mg Documented by: [id number] Admin: 01/06/21 13:01 Dose: 0.5 mg Documented by: [id number] Admin: 01/06/21 07:04 Dose: 0.5 mg Documented by: [id number] Admin: 01/06/21 00:57 Dose: 0.5 mg Documented by: [id number] Levalbuterol HCl (Levalbuterol 1.25mg/0.5ml Neb) 1.25 mg INH Q6R JUNAID Stop: 02/05/21 00:59 Last Admin: 01/09/21 07:31 Dose: 1.25 mg Documented by: [id number] Admin: 01/09/21 01:00 Dose: 1.25 mg Documented by: [id number] Admin: 01/08/21 20:20 Dose: 1.25 mg Documented by: [id number] Admin: 01/08/21 13:06 Dose: 1.25 mg Documented by: [id number] Admin: 01/08/21 07:33 Dose: 1.25 mg Documented by: [id number] Admin: 01/08/21 01:33 Dose: 1.25 mg Documented by: [id number] Admin: 01/07/21 20:14 Dose: 1.25 mg Documented by: [id number] Admin: 01/07/21 13:07 Dose: 1.25 mg Documented by: [id number] Admin: 01/07/21 07:21 Dose: 1.25 mg Documented by: [id number] Admin: 01/07/21 00:57 Dose: Not Given Documented by: [id number] Admin: 01/06/21 19:17 Dose: 1.25 mg Documented by: [id number] Admin: 01/06/21 13:01 Dose: 1.25 mg Documented by: [id number] Admin: 01/06/21 07:04 Dose: 1.25 mg Documented by: [id number] Admin: 01/06/21 00:57 Dose: 1.25 mg Documented by: [id number] Methylprednisolone (Methylprednisolone 125 Mg/2 Ml Vial) 60 mg IV NOW STA Stop: 01/05/21 15:50 Last Admin: 01/05/21 16:03 Dose: 60 mg Documented by: [id number] Olodaterol (Olodaterol Hcl 2.5mcg/Actuation 60 Puffs/Inhaler) 2 puffs INH DAILY JUNAID Stop: 02/07/21 08:59 Last Admin: 01/09/21 08:51 Dose: 2 puffs Documented by: [id number] Admin: 01/08/21 09:37 Dose: 2 puffs Documented by: [id number] Ondansetron HCl (Ondansetron Inj 2 Mg/Ml 2 Ml Vial) 4 mg IV NOW STA Stop: 01/05/21 15:30 Last Admin: 01/05/21 15:42 Dose: 4 mg Documented by: [id number] Pantoprazole Sodium (Pantoprazole 40 Mg Tab) 40 mg PO QAM JUNAID Stop: 02/05/21 08:59 Last Admin: 01/09/21 08:02 Dose: 40 mg Documented by: [id number] Admin: 01/08/21 08:33 Dose: 40 mg Documented by: [id number] Admin: 01/07/21 08:41 Dose: 40 mg Documented by: [id number] Admin: 01/06/21 08:53 Dose: 40 mg Documented by: [id number] Prednisone (Prednisone 20 Mg Tab) 40 mg PO DAILY JUNAID Stop: 02/06/21 08:59 Last Admin: 01/09/21 08:02 Dose: 40 mg Documented by: [id number] Admin: 01/08/21 08:33 Dose: 40 mg Documented by: [id number] Admin: 01/07/21 09:49 Dose: 40 mg Documented by: [id number] Rivaroxaban (Rivaroxaban 20 Mg Tab) 20 mg PO QDD JUNAID Stop: 02/04/21 20:59 Last Admin: 01/08/21 17:16 Dose: 20 mg Documented by: [id number] Admin: 01/07/21 17:12 Dose: 20 mg Documented by: [id number] Admin: 01/06/21 15:53 Dose: 20 mg Documented by: [id number] Admin: 01/05/21 21:34 Dose: 20 mg Documented by: [id number] Vitamin D (Cholecalciferol 1,000 Units 25 Mcg Tab) 2,000 units PO HS JUNAID Stop: 02/04/21 20:59 Last Admin: 01/08/21 20:45 Dose: 2,000 units Documented by: [id number] Admin: 01/07/21 19:56 Dose: 2,000 units Documented by: [id number] Admin: 01/06/21 20:09 Dose: 2,000 units Documented by: [id number] Admin: 01/05/21 21:34 Dose: 2,000 units Documented by: [id number] Medical Decision Making Differential Diagnosis Reactive airway disease, pneumonia, pneumothorax, COPD, CHF, infections, cardiac ischemia, pulmonary embolism, musculoskeletal, gastrointestinal, as well as other pathologies. Medical Records Attestation: I reviewed the patient's medical records. Home Medications Current Medication List: was personally reviewed by me Laboratory Data Attestation: I reviewed the patient's lab results. Result diagrams: 01/05/21 15:45 01/05/21 15:45 Lab Results 01/05/21 01/05/21 01/05/21 Range/Units 15:42 15:45 15:45 WBC 10.75 (4.8-10.8) K/uL RBC 4.83 (4.2-5.4) M/uL Hgb 15.2 (12.0-16.0) g/dL Hct 44.8 (37-47) % MCV 92.8 (80-100) fL MCH 31.5 (25-34) pg MCHC 33.9 (32-36) g/dL RDW Std Deviation 45.3 (36.4-46.3) fL RDW Coeff of Kimberly 13.3 (11.5-14.5) % Plt Count 186 (130-400) K/uL MPV 10.4 (7.4-10.4) fL Immature Gran % (Auto) 0.1 % Neut % (Auto) 90.9 % Lymph % (Auto) 4.8 % [place] % (Auto) 4.0 % Eos % (Auto) 0.1 % Baso % (Auto) 0.1 % Neut # (Auto) 9.77 H (1.4-6.5) K/uL Lymph # (Auto) 0.52 L (1.2-3.4) K/uL [place] # (Auto) 0.43 (0.11-0.59) K/uL Eos # (Auto) 0.01 (0-0.5) K/uL Baso # (Auto) 0.01 (0-0.2) K/uL Immature Gran # (Auto) 0.01 (0.00-0.02) K/uL D-Dimer (0-500) ug/L FEU Sodium 136 (136-145) mmol/L Potassium 4.1 (3.5-5.1) mmol/L Chloride 104 (98-107) mmol/L Carbon Dioxide 25 (21-32) mmol/L Anion Gap 7.0 (3-11) BUN 13 (7-18) mg/dl Creatinine 0.72 (0.6-1.2) mg/dl Est Cr Clr Drug Dosing 54.2 ml/min Est GFR ( Amer) 90.4 ml/min Est GFR (Non-Af Amer) 78.0 ml/min BUN/Creatinine Ratio 18.5 (10-20) Glucose 134 H (70-99) mg/dl Lactate (0.4-2.0) mmol/L Calcium 10.0 (8.5-10.1) mg/dl Magnesium 2.1 (1.8-2.4) mg/dl Total Bilirubin 2.8 H (0.2-1) mg/dl AST 25 (15-37) U/L ALT 27 (12-78) U/L Alkaline Phosphatase 108 (45-117) U/L NT-Pro-B Natriuret Pep 1116 (0-1800) pg/ml Total Protein 7.6 (6.4-8.2) gm/dl Albumin 4.2 (3.4-5.0) gm/dl Globulin 3.4 (2.5-4.0) gm/dl Albumin/Globulin Ratio 1.2 (0.9-2) TSH 0.672 (0.300-4.500) uIu/ml Urine Color Urine Appearance (Clear) Urine pH (4.5-7.5) Ur Specific [place] (1.000-1.030) Urine Protein (Negative) Urine Glucose (UA) (Negative) Urine Ketones (Negative) Urine Blood (Negative) Urine Nitrite (Negative) Urine Bilirubin (Negative) Urine Urobilinogen (Negative) Ur Leukocyte Esterase (Negative) COVID-19 Eval Order SARS-CoV-2 (PCR) (Negative) Influ A Molecular Assay (Negative) Influ B Molecular Assay (Negative) RSV (Molecular) (Negative) Group A Strep (PCR) NOT DETECTED (NotDetected) 01/05/21 01/05/21 01/05/21 Range/Units 15:45 15:46 15:46 WBC (4.8-10.8) K/uL RBC (4.2-5.4) M/uL Hgb (12.0-16.0) g/dL Hct (37-47) % MCV (80-100) fL MCH (25-34) pg MCHC (32-36) g/dL RDW Std Deviation (36.4-46.3) fL RDW Coeff of Kimberly (11.5-14.5) % Plt Count (130-400) K/uL MPV (7.4-10.4) fL Immature Gran % (Auto) % Neut % (Auto) % Lymph % (Auto) % [place] % (Auto) % Eos % (Auto) % Baso % (Auto) % Neut # (Auto) (1.4-6.5) K/uL Lymph # (Auto) (1.2-3.4) K/uL [place] # (Auto) (0.11-0.59) K/uL Eos # (Auto) (0-0.5) K/uL Baso # (Auto) (0-0.2) K/uL Immature Gran # (Auto) (0.00-0.02) K/uL D-Dimer < 190 (0-500) ug/L FEU Sodium (136-145) mmol/L Potassium (3.5-5.1) mmol/L Chloride (98-107) mmol/L Carbon Dioxide (21-32) mmol/L Anion Gap (3-11) BUN (7-18) mg/dl Creatinine (0.6-1.2) mg/dl Est Cr Clr Drug Dosing ml/min Est GFR ( Amer) ml/min Est GFR (Non-Af Amer) ml/min BUN/Creatinine Ratio (10-20) Glucose (70-99) mg/dl Lactate (0.4-2.0) mmol/L Calcium (8.5-10.1) mg/dl Magnesium (1.8-2.4) mg/dl Total Bilirubin (0.2-1) mg/dl AST (15-37) U/L ALT (12-78) U/L Alkaline Phosphatase (45-117) U/L NT-Pro-B Natriuret Pep (0-1800) pg/ml Total Protein (6.4-8.2) gm/dl Albumin (3.4-5.0) gm/dl Globulin (2.5-4.0) gm/dl Albumin/Globulin Ratio (0.9-2) TSH (0.300-4.500) uIu/ml Urine Color Urine Appearance (Clear) Urine pH (4.5-7.5) Ur Specific [place] (1.000-1.030) Urine Protein (Negative) Urine Glucose (UA) (Negative) Urine Ketones (Negative) Urine Blood (Negative) Urine Nitrite (Negative) Urine Bilirubin (Negative) Urine Urobilinogen (Negative) Ur Leukocyte Esterase (Negative) COVID-19 Eval Order Covid19 at [facility] SARS-CoV-2 (PCR) NEGATIVE (Negative) Influ A Molecular Assay (Negative) Influ B Molecular Assay (Negative) RSV (Molecular) (Negative) Group A Strep (PCR) (NotDetected) 01/05/21 01/05/21 01/05/21 Range/Units 15:46 16:01 17:00 WBC (4.8-10.8) K/uL RBC (4.2-5.4) M/uL Hgb (12.0-16.0) g/dL Hct (37-47) % MCV (80-100) fL MCH (25-34) pg MCHC (32-36) g/dL RDW Std Deviation (36.4-46.3) fL RDW Coeff of Kimberly (11.5-14.5) % Plt Count (130-400) K/uL MPV (7.4-10.4) fL Immature Gran % (Auto) % Neut % (Auto) % Lymph % (Auto) % [place] % (Auto) % Eos % (Auto) % Baso % (Auto) % Neut # (Auto) (1.4-6.5) K/uL Lymph # (Auto) (1.2-3.4) K/uL [place] # (Auto) (0.11-0.59) K/uL Eos # (Auto) (0-0.5) K/uL Baso # (Auto) (0-0.2) K/uL Immature Gran # (Auto) (0.00-0.02) K/uL D-Dimer (0-500) ug/L FEU Sodium (136-145) mmol/L Potassium (3.5-5.1) mmol/L Chloride (98-107) mmol/L Carbon Dioxide (21-32) mmol/L Anion Gap (3-11) BUN (7-18) mg/dl Creatinine (0.6-1.2) mg/dl Est Cr Clr Drug Dosing ml/min Est GFR ( Amer) ml/min Est GFR (Non-Af Amer) ml/min BUN/Creatinine Ratio (10-20) Glucose (70-99) mg/dl Lactate 1.6 (0.4-2.0) mmol/L Calcium (8.5-10.1) mg/dl Magnesium (1.8-2.4) mg/dl Total Bilirubin (0.2-1) mg/dl AST (15-37) U/L ALT (12-78) U/L Alkaline Phosphatase (45-117) U/L NT-Pro-B Natriuret Pep (0-1800) pg/ml Total Protein (6.4-8.2) gm/dl Albumin (3.4-5.0) gm/dl Globulin (2.5-4.0) gm/dl Albumin/Globulin Ratio (0.9-2) TSH (0.300-4.500) uIu/ml Urine Color Yellow Urine Appearance Clear (Clear) Urine pH 8.0 H (4.5-7.5) Ur Specific [place] 1.010 (1.000-1.030) Urine Protein Negative (Negative) Urine Glucose (UA) Negative (Negative) Urine Ketones Trace H (Negative) Urine Blood Negative (Negative) Urine Nitrite Negative (Negative) Urine Bilirubin Negative (Negative) Urine Urobilinogen Negative (Negative) Ur Leukocyte Esterase Negative (Negative) COVID-19 Eval Order SARS-CoV-2 (PCR) (Negative) Influ A Molecular Assay Negative (Negative) Influ B Molecular Assay Negative (Negative) RSV (Molecular) Negative (Negative) Group A Strep (PCR) (NotDetected) Imaging Data Radiologist's Impression: Chest X-Ray 01/05/21 15:29 XR chest 1V portable CLINICAL HISTORY: weakness COMPARISON STUDY: Chest radiograph July 11, 2019. FINDINGS: Lung volumes are normal. There is no pneumothorax or pleural effusion. There is no consolidation. Mild cardiomegaly is noted. There is pulmonary vascular congestion with possible mild pulmonary edema. No consolidation is identified. IMPRESSION: Pulmonary vascular congestion with possible mild pulmonary edema. ACT 112: Negative or not required by law. Electronically signed by: Bennett Montero M.D. 01/05/2021 4:37 PM ECG Data Attestation: I personally reviewed and interpreted this ECG as follows: Indication: + SOB/dyspnea Rate (beats per minute): 84 Rhythm: + atrial fibrillation ECG Intervals/blocks: + Normal QT-c ECG Cascade: + Normal ECG ST segments: + Nonspecific ST abnormalities ECG Findings: no PACs and no PVCs Blood Pressure Blood Pressure Findings: Elevated blood pressure Blood Pressure Disposition: further management by hospitalist MDM Narrative This patient was evaluated and appeared to be in no significant distress. Patient was noted to be wheezing on exam with an increased work of breathing. An order for cardiac monitoring was placed and the patient was noted to be in a sinus rhythm. She was hypoxic periodically was placed on nasal cannula oxygen. She was given a DuoNeb treatment and IV Solu-Medrol. Chest x-ray reveals no focal lung consolidation. She was given 40 mg of Lasix due to mild pulmonary vascular congestion however the BNP is not markedly elevated. Given the oxygen requirement, wheezing, advanced age and comorbidities it was felt that the patient would benefit from evaluation from the hospitalist. She was amenable to this plan. [facility] physician group hospitalist was consulted for further management. Impression & Plan Asthma exacerbation, Viral illness, Hypoxia Discharge Plan Visit Data Chief Complaint: Illness Stated Complaint: NAUSEA,SORE THROAT,WHEEZING,SHELDON,COUGH,MALIK ED Provider: Ale Berman Discharge Problem: Asthma exacerbation, Viral illness, Hypoxia Patient Disposition: Admitted As Inpatient Discharge Instructions Interventions: ED Discharge Assessment Last Done: 01/05/21 20:00 Discharge Problem: Asthma exacerbation Qualifiers: Asthma severity: moderate Asthma persistence: persistent Qualified Code(s): J45.41 - Moderate persistent asthma with (acute) exacerbation
[2021-01-05] MEDS: amLODIPine BESYLATE 5 MG TAB PO SCH (21:34)
[2021-01-05] MEDS: CHOLECALCIFEROL 1,000 UNITS 25 MCG TAB PO SCH (21:34)
[2021-01-05] MEDS: methylPREDNISolone 30 MG in SYRINGE 0 ML IV SCH (21:34)
[2021-01-05] MEDS: RIVAROXABAN 20 MG TAB PO SCH (21:34)
[2021-01-05] MEDS: ATORVASTATIN 40 MG TAB PO SCH (21:35)
[2021-01-05] MEDS: guaiFENesin 600 MG TABCR PO SCH (21:35)
[2021-01-06] MEDS: IPRATROPIUM BROMIDE NEB SOLN 0.02% 2.5 ML VIAL INH SCH ×4 (00:57→19:17)
[2021-01-06] MEDS: LEVALBUTEROL 1.25MG/0.5ML NEB INH SCH ×4 (00:57→19:17)
[2021-01-06] MEDS: methylPREDNISolone 30 MG in SYRINGE 0 ML IV SCH (06:14)
[2021-01-06] MEDS: guaiFENesin 600 MG TABCR PO SCH ×2 (08:53→20:10)
[2021-01-06] MEDS: PANTOprazole 40 MG TAB PO SCH (08:53)
[2021-01-06] MEDS: ATENOLOL 50 MG TABLET PO SCH (08:53)
[2021-01-06] MEDS: ASPIRIN 81 MG ECTAB PO SCH (08:53)
--- NOTE | 2021-01-06 09:17 | Hospitalist Progress Note ---
Date of Service January 06, 2021 Assessment & Plan (1) Asthma with exacerbation: 24 hours of flu-like symptoms c/w viral syndrome. Asthma flare likely 2nd to viral process. procal - was negative. Doubt bacterial process thus defer on antibiotics. COVID negative, and patient is fully vaccinated. Checked flu and RSV - both negative. CXR with infiltrates -- viral? pulmonary edema? Plan - * solumedrol 30mg IV q8h * scheduled bronchodilators * flutter valve * incentive ana maria * tessalon prn * mucinex BID * again defer on abx for now * trial of lasix if indeed she has mild pulmonary edema - 20mg IV x 1; (2) (HFpEF) heart failure with preserved ejection fraction: pt treated with iv lasix, not typically on diuretic, last echo was relatively normal in 2018 (3) Permanent atrial fibrillation: Rates largely controlled upon admission. Continue atenolol. Continue xarelto. Place on med/tele. (4) HTN (hypertension): Continue atenolol. Continue amlodipine. BPs mildly high upon admission - trend, and adjust meds if needed. (5) Acute respiratory failure with hypoxia: 2nd asthma exacerbation. can't rule out a viral pneumonia. can't rule out acute pulmonary edema / acute diastolic CHF. see above. supportive care, NC O2, nebs, etc. (6) Viral syndrome: <24 hours of flu-like symptoms suggestive of viral process. COVID neg. Flu/RSV neg. Doubt bacterial process at this time. (7) Abnormal CXR: b/l infiltrates -- viral process? pulm edema? trial of lasix 20mg IV x 1 if it is pulm edema. if she has response to the lasix consider additional diuretic tomorrow. consider repeat echo - last was a few years ago. EF preserved at that time. if she indeed has pulmonary edema this is likely due to diastolic dysfunction in the setting of a.fib and illness. (8) History of stroke: noted continue xarelto for secondary prevention (9) Chronic kidney disease, stage 3a: baseline CrCl 50s trend Cr while hospitalized for stability (10) DVT prophylaxis: xarelto 20mg daily Admission and Anticipated Discharge Date Admission Date: January 05, 2021 Review of Systems Review of Systems: Mild distress and fatigue still mildly short of breath so mewhat anxious no headache, no visual changes no speech or swallowing issues no chest pain, pressure or palpitations Some shortness of breath at rest nonproductive coughing no abdominal pain, nausea or vomiting, diarrhea or constipation no dysuria, hematuria or frequency no focal joint pain or swelling no back pain, CVA tenderness or radicular pain no bruising, bleeding or rashes no focal signs of weakness or numbness or altered sensation Seems to have some baseline anxiety Physical Exam Physical Exam: The patient appeared well nourished and normally developed. Slightly thin for age but not underweight with a BMI of twenty-three Vital signs as documented. Head exam is normocephalic atraumatic Neck is without JVD, thyromegaly, or carotid bruits. Lungs are poor air movement throughout prolonged expiratory phase decreased air sounds in the right midlung field Cardiac exam, Rhythm is regular. (Has a history of A. fib). No murmurs, rubs or gallops. Abdominal exam reveals normal bowel sounds, soft non tender, no masses Extremities are nonedematous and both pedal pulses are present Neurologic exam is alert and oriented, no focal loss of strength or sensation Skin is without bruises or rashes Psychologically is without concerns for anxiety or depression Results & Data Results & Data ([facility]) Vital Signs (Past 12 Hours) Vital Signs Temp Pulse Pulse Resp BP Pulse Ox 01/06/21 07:26 97.9 F 100 H 18 127/67 91 01/06/21 07:11 87 01/06/21 07:05 79 17 90 01/06/21 03:23 97.3 F L 83 16 120/57 L 92 01/06/21 00:57 81 16 92 01/06/21 00:03 91 H 01/05/21 22:29 97.7 F 84 16 150/69 H 92 PG Care Time/CCT Total # of Minutes Spent Total Time Spent with Patient: Total time spent is greater than 50% in coordination of care (as documented) at patient's floor/unit and/or counseling patient: Coding Level of Care Code 64613 Subseq Hosp Care Lvl 3 Diagnoses Asthma with exacerbation J45.901 (HFpEF) heart failure with preserved ejection fraction I50.30 Permanent atrial fibrillation I48.21 HTN (hypertension) I10 Hypertension type: essential hypertension Acute respiratory failure with hypoxia J96.01 Viral syndrome B34.9 Abnormal CXR R93.89 History of stroke Z86.73 Chronic kidney disease, stage 3a N18.31 DVT prophylaxis Z29.9 (1) HTN (hypertension) Hypertension type: essential hypertension Qualified Code(s): I10 - Essential (primary) hypertension
[2021-01-06] MEDS: RIVAROXABAN 20 MG TAB PO SCH (15:53)
[2021-01-06] MEDS ORDERED: methylPREDNISolone 30 MG in SYRINGE 0 ML IV SCH (18:00)
[2021-01-06] MEDS: CHOLECALCIFEROL 1,000 UNITS 25 MCG TAB PO SCH (20:09)
[2021-01-06] MEDS: amLODIPine BESYLATE 5 MG TAB PO SCH (20:09)
[2021-01-06] MEDS: ATORVASTATIN 40 MG TAB PO SCH (20:10)
[2021-01-07] MEDS: IPRATROPIUM BROMIDE NEB SOLN 0.02% 2.5 ML VIAL INH SCH ×4 (00:57→20:14)
[2021-01-07] MEDS: LEVALBUTEROL 1.25MG/0.5ML NEB INH SCH ×4 (00:57→20:14)
[2021-01-07] MEDS: ATENOLOL 50 MG TABLET PO SCH (08:41)
[2021-01-07] MEDS: ASPIRIN 81 MG ECTAB PO SCH (08:41)
[2021-01-07] MEDS: PANTOprazole 40 MG TAB PO SCH (08:41)
[2021-01-07] MEDS: guaiFENesin 600 MG TABCR PO SCH ×2 (08:41→19:56)
[2021-01-07] MEDS: predniSONE 20 MG TAB PO SCH (09:49)
--- NOTE | 2021-01-07 12:31 | XCELERA ---
[id number]
--- NOTE | 2021-01-07 16:22 | Hospitalist Progress Note ---
Date of Service January 07, 2021 Assessment & Plan (1) Asthma with exacerbation: 24 hours of flu-like symptoms c/w viral syndrome. Asthma flare likely 2nd to viral process. procal - was negative. Doubt bacterial process thus defer on antibiotics. COVID negative, and patient is fully vaccinated. Checked flu and RSV - both negative. CXR with infiltrates -- viral? pulmonary edema? will start serevent, tapered steroids to po * contineu scheduled bronchodilators * flutter valve * incentive ana maria * tessalon prn * mucinex BID (2) (HFpEF) heart failure with preserved ejection fraction: pt treated with iv lasix, not typically on diuretic, last echo was relatively normal in 2018, pt has repeat echo today again with preserved systolic function with mild to moderate mr and Tr and elevated right heart pressures (3) Permanent atrial fibrillation: Rates largely controlled upon admission. Continue atenolol. Continue xarelto. (4) HTN (hypertension): Continue atenolol. Continue amlodipine. (5) Acute respiratory failure with hypoxia: may consider more likley copd exacerbation as has some obstructive suggeston on PFT from 2019, has large lungs on cxr and now elevated right heart pressures can't rule out a viral pneumonia. can't rule out acute pulmonary edema / acute diastolic CHF. see above. supportive care, NC O2, nebs, etc. (6) Viral syndrome: <24 hours of flu-like symptoms suggestive of viral process. COVID neg. Flu/RSV neg. Doubt bacterial process at this time. (7) Abnormal CXR: b/l infiltrates -- viral process? trial of lasix 20mg IV x 1 if it is pulm edema. feel that acute heart failure has been ruled out (8) History of stroke: noted continue xarelto for secondary prevention (9) Chronic kidney disease, stage 3a: baseline CrCl 50s trend Cr while hospitalized for stability (10) DVT prophylaxis: xarelto 20mg daily Admission and Anticipated Discharge Date Admission Date: January 05, 2021 Subjective this pt is improved we did spend some time discussing ways to improve her respiratory status, some of it is also impacted by her kyphosis still with loose cough productive at times Review of Systems Review of Systems: Mild distress and fatigue still mildly short of breath somewhat anxious no headache, no visual changes no speech or swallowing issues no chest pain, pressure or palpitations Some shortness of breath at rest nonproductive coughing no abdominal pain, nausea or vomiting, diarrhea or constipation no dysuria, hematuria or frequency no focal joint pain or swelling no back pain, CVA tenderness or radicular pain no bruising, bleeding or rashes no focal signs of weakness or numbness or altered sensation Seems to have some baseline anxiety Physical Exam Physical Exam: The patient appeared well nourished and normally developed. Slightly thin for age but not underweight with a BMI of twenty-three Vital signs as documented. Head exam is normocephalic atraumatic Neck is without JVD, thyromegaly, or carotid bruits. Lungs are poor air movement throughout prolonged expiratory phase decreased air sounds in the right midlung field Cardiac exam, Rhythm is regular. (Has a history of A. fib). No murmurs, rubs or gallops. Abdominal exam reveals normal bowel sounds, soft non tender, no masses Extremities are nonedematous and both pedal pulses are present Neurologic exam is alert and oriented, no focal loss of strength or sensation Skin is without bruises or rashes Psychologically is without concerns for anxiety or depression Results & Data Results & Data ([facility]) Vital Signs (Past 12 Hours) Vital Signs Temp Pulse Pulse Resp BP Pulse Ox 01/07/21 15:30 97.9 F 74 18 124/74 90 01/07/21 14:49 88 01/07/21 13:08 64 19 93 01/07/21 11:54 98.2 F 55 L 18 155/77 H 92 01/07/21 07:21 77 18 92 01/07/21 07:16 81 01/07/21 06:47 98.1 F 81 20 132/69 90 PG Care Time/CCT Total # of Minutes Spent Total Time Spent with Patient: Total time spent is greater than 50% in c oordination of care (as documented) at patient's floor/unit and/or counseling patient: Coding Level of Care Code 26161 Subseq Hosp Care Lvl 3 Diagnoses Asthma with exacerbation J45.31 Asthma severity: mild Asthma persistence: persistent (HFpEF) heart failure with preserved ejection fraction I50.30 Permanent atrial fibrillation I48.21 HTN (hypertension) I10 Hypertension type: essential hypertension Acute respiratory failure with hypoxia J96.01 Viral syndrome B34.9 Abnormal CXR R93.89 History of stroke Z86.73 Chronic kidney disease, stage 3a N18.31 DVT prophylaxis Z29.9 (1) Asthma with exacerbation Asthma severity: mild Asthma persistence: persistent Qualified Code(s): J45.31 - Mild persistent asthma with (acute) exacerbation (2) HTN (hypertension) Hypertension type: essential hypertension Qualified Code(s): I10 - Essential (primary) hypertension
[2021-01-07] MEDS: RIVAROXABAN 20 MG TAB PO SCH (17:12)
[2021-01-07] MEDS: amLODIPine BESYLATE 5 MG TAB PO SCH (19:56)
[2021-01-07] MEDS: CHOLECALCIFEROL 1,000 UNITS 25 MCG TAB PO SCH (19:56)
[2021-01-07] MEDS: ATORVASTATIN 40 MG TAB PO SCH (19:56)
[2021-01-08] MEDS: IPRATROPIUM BROMIDE NEB SOLN 0.02% 2.5 ML VIAL INH SCH ×4 (01:33→20:20)
[2021-01-08] MEDS: LEVALBUTEROL 1.25MG/0.5ML NEB INH SCH ×4 (01:33→20:20)
[2021-01-08] MEDS: predniSONE 20 MG TAB PO SCH (08:33)
[2021-01-08] MEDS: PANTOprazole 40 MG TAB PO SCH (08:33)
[2021-01-08] MEDS: guaiFENesin 600 MG TABCR PO SCH ×2 (08:34→20:45)
[2021-01-08] MEDS: ATENOLOL 50 MG TABLET PO SCH (08:34)
[2021-01-08] MEDS: ASPIRIN 81 MG ECTAB PO SCH (08:34)
[2021-01-08] MEDS: OLODATEROL HCL 2.5MCG/ACTUATION 60 PUFFS/INHALER INH SCH (09:37)
[2021-01-08] MEDS: RIVAROXABAN 20 MG TAB PO SCH (17:16)
--- NOTE | 2021-01-08 18:25 | Hospitalist Progress Note ---
Date of Service January 08, 2021 Assessment & Plan (1) Asthma with exacerbation: 24 hours of flu-like symptoms c/w viral syndrome. Asthma flare likely 2nd to viral process. procal - was negative. Doubt bacterial process thus defer on antibiotics. COVID negative, and patient is fully vaccinated. Checked flu and RSV - both negative. will start serevent, tapered steroids to po, will use azithromycin for anti flamatory affects * contineu scheduled bronchodilators * flutter valve * incentive ana maria * tessalon prn * mucinex BID (2) (HFpEF) heart failure with preserved ejection fraction: pt treated with iv lasix, not typically on diuretic, last echo was relatively normal in 2018, pt has repeat echo today again with preserved systolic function with mild to moderate mr and Tr and elevated right heart pressures (3) Permanent atrial fibrillation: Rates largely controlled upon admission. Continue atenolol. Continue xarelto. (4) HTN (hypertension): Continue atenolol. Continue amlodipine. (5) Acute respiratory failure with hypoxia: may consider more likley copd exacerbation as has some obstructive suggeston on PFT from 2019, has large lungs on cxr and now elevated right heart pressures can't rule out a viral pneumonia. can't rule out acute pulmonary edema / acute diastolic CHF. see above. supportive care, NC O2, nebs, etc. (6) Viral syndrome: <24 hours of flu-like symptoms suggestive of viral process. COVID neg. Flu/RSV neg. Doubt bacterial process at this time. (7) Abnormal CXR: b/l infiltrates -- viral process? trial of lasix 20mg IV x 1 if it is pulm edema. feel that acute heart failure has been ruled out (8) History of stroke: noted continue xarelto for secondary prevention (9) Chronic kidney disease, stage 3a: baseline CrCl 50s trend Cr while hospitalized for stability (10) DVT prophylaxis: xarelto 20mg daily Admission and Anticipated Discharge Date Admission Date: January 05, 2021 Subjective this pt is improved we did spend some time discussing ways to improve her respiratory status, some of it is also impacted by her kyphosis still with loose cough productive at times Review of Systems Review of Systems: Mild distress and fatigue still mildly short of breath somewhat anxious no headache, no visual changes no speech or swallowing issues no chest pain, pressure or palpitations Some shortness of breath at rest nonproductive coughing no abdominal pain, nausea or vomiting, diarrhea or constipation no dysuria, hematuria or frequency no focal joint pain or swelling no back pain, CVA tenderness or radicular pain no bruising, bleeding or rashes no focal signs of weakness or numbness or altered sensation Seems to have some baseline anxiety Physical Exam Physical Exam: The patient appeared well nourished and normally developed. Slightly thin for age but not underweight with a BMI of twenty-three Vital signs as documented. Head exam is normocephalic atraumatic Neck is without JVD, thyromegaly, or carotid bruits. Lungs are poor air movement throughout prolonged expiratory phase decreased air sounds in the right midlung field Cardiac exam, Rhythm is regular. (Has a history of A. fib). No murmurs, rubs or gallops. Abdominal exam reveals normal bowel sounds, soft non tender, no masses Extremities are nonedematous and both pedal pulses are present Neurologic exam is alert and oriented, no focal loss of strength or sensation Skin is without bruises or rashes Psychologically is without concerns for anxiety or depression Results & Data Results & Data ([facility]) Vital Signs (Past 12 Hours) Vital Signs Temp Pulse Pulse Resp BP Pulse Ox 01/08/21 16:05 97.7 F 67 18 151/73 H 93 01/08/21 14:59 59 L 01/08/21 13:06 84 16 92 01/08/21 11:16 98.1 F 71 16 145/77 H 92 01/08/21 08:12 97.7 F 81 16 158/67 H 90 01/08/21 07:34 74 16 92 01/08/21 07:11 84 PG Care Time/CCT Total # of Minutes Spent Total Time Spent with Patient: Total time spent is greater than 50% in coordination of care (as documented) at patient's floor/unit and/or counseling patient: Coding Level of Care Code 79084 Subseq Hosp Care Lvl 2 Diagnoses Asthma with exacerbation J45.31 Asthma severity: mild Asthma persistence: persistent (HFpEF) heart failure with preserved ejection fraction I50.30 Permanent atrial fibrillation I48.21 HTN (hypertension) I10 Hypertension type: essential hypertension Acute respiratory failure with hypoxia J96.01 Viral syndrome B34.9 Abnormal CXR R93.89 History of stroke Z86.73 Chronic kidney disease, stage 3a N18.31 DVT prophylaxis Z29.9 (1) Asthma with exacerbation Asthma severity: mild Asthma persistence: persistent Qualified Code(s): J45. 31 - Mild persistent asthma with (acute) exacerbation (2) HTN (hypertension) Hypertension type: essential hypertension Qualified Code(s): I10 - Essential (primary) hypertension
[2021-01-08] MEDS ORDERED: AZITHROMYCIN 250 MG TAB PO ONE (19:00)
[2021-01-08] MEDS: CHOLECALCIFEROL 1,000 UNITS 25 MCG TAB PO SCH (20:45)
[2021-01-08] MEDS: ATORVASTATIN 40 MG TAB PO SCH (20:45)
[2021-01-08] MEDS: amLODIPine BESYLATE 5 MG TAB PO SCH (20:46)
[2021-01-09] MEDS: LEVALBUTEROL 1.25MG/0.5ML NEB INH SCH ×2 (01:00→07:31)
[2021-01-09] MEDS: IPRATROPIUM BROMIDE NEB SOLN 0.02% 2.5 ML VIAL INH SCH ×2 (01:00→07:31)
[2021-01-09] MEDS: guaiFENesin 600 MG TABCR PO SCH (08:02)
[2021-01-09] MEDS: ATENOLOL 50 MG TABLET PO SCH (08:02)
[2021-01-09] MEDS: PANTOprazole 40 MG TAB PO SCH (08:02)
[2021-01-09] MEDS: ASPIRIN 81 MG ECTAB PO SCH (08:02)
[2021-01-09] MEDS: predniSONE 20 MG TAB PO SCH (08:02)
[2021-01-09] MEDS: OLODATEROL HCL 2.5MCG/ACTUATION 60 PUFFS/INHALER INH SCH (08:51)
[2021-01-09] MEDS ORDERED: AZITHROMYCIN 250 MG TAB PO SCH (12:00)
--- NOTE | 2021-01-09 18:24 | Discharge Summary ---
Date of Service January 09, 2021 Admission HPI Per Admitting Provider 80yo female with h/o asthma, permanent a.fib, and prior stroke presents with cough, wheezing, sore throat. All symptoms began yesterday late in the day very suddenly. Cough was worse with laying flat overnight. Had headache last pm as well. Cough is mildly productive of sputum today. Tried her albuterol at home which gave relief of her symptoms. No fevers. No chills. Some aches. No loss of taste or smell. Had 2-shot COVID vaccine series earlier in September. Came to ER today because cough and dyspnea along with wheezing worsened through the day and her family encouraged her to get checked. Neb treatment in the ER while awaiting admission was helpful with respiratory symptoms. Principal Diagnosis acute exacerbation of chronic obstructive lung disease Permanent afib no heart failure noted Discharge Exam The patient appeared well nourished and normally developed. Vital signs as documented. Head exam is normocephalic atraumatic Neck is without JVD, thyromegaly, or carotid bruits. Lungs are clear to auscultation, no focal loss of breath sounds Patient is kyphotic which likely provides some restriction and has prolonged expiratory phase which likely suggest obstruction Cardiac exam, sounds to be irregular but rate controlled.. No murmurs, rubs or gallops. Abdominal exam reveals normal bowel sounds, soft non tender, no masses Extremities are nonedematous and both pedal pulses are present Neurologic exam is alert and oriented, no focal loss of strength or sensation Skin is without bruises or rashes Psychologically is without concerns for anxiety or depression Discharge Data Allergies Allergy/AdvReac Type Severity Reaction Status Date / Time oxycodone Allergy Severe anaphylaxis Verified 01/05/21 16:24 codeine Allergy Mild hives Verified 01/05/21 16:24 Penicillins Allergy Mild rash Verified 01/05/21 16:24 lisinopril Allergy Unknown lips Verified 01/05/21 16:24 swelling acetaminophen [From Tylox] Allergy "slow" Verified 01/05/21 16:24 breathing levofloxacin [From Levaquin] Allergy unknown Verified 01/05/21 16:24 reaction Hospital Course (1) Asthma with exacerbation: 24 hours of flu-like symptoms c/w viral syndrome. Asthma flare likely 2nd to viral process. procal - was negative. Doubt bacterial process thus defer on antibiotics. COVID negative, and patient is fully vaccinated. Checked flu and RSV - both negative. Will be home on LABA tapered steroids to po, will use azithromycin for anti inflammatory affects additional 3 days * flutter valve (2) (HFpEF) heart failure with preserved ejection fraction: pt treated with iv lasix, not typically on diuretic, last echo was relatively normal in 2018, pt has repeat echo today again with preserved systolic function with mild to moderate mr and Tr and elevated right heart pressures , thus pulmonary htn from her lung disease is the more likely diagnosis that heart failure and I feel heart failure is ruled out (3) Permanent atrial fibrillation: Rates largely controlled upon admission. Continue atenolol. Continue xarelto. (4) HTN (hypertension): Continue atenolol. Continue amlodipine. (5) Acute respiratory failure with hypoxia: may consider more likley copd exacerbation as has some obstructive suggeston on PFT from 2019, has large lungs on cxr and now elevated right heart pressures supportive care, follow up with pulmonary medicine (6) Viral syndrome: <24 hours of flu-like symptoms suggestive of viral process. started on azithro for bronchitis associated with obstructive lung disease COVID neg. Flu/RSV neg. (7) Abnormal CXR: b/l infiltrates -- viral process? trial of lasix 20mg IV x 1 not feel his heart failure feel that acute heart failure has been ruled out (8) History of stroke: noted continue xarelto for secondary prevention (9) Chronic kidney disease, stage 3a: stable (10) DVT prophylaxis: xarelto 20mg daily Total Time Total Time Spent Total Time Spent (In Minutes): It required greater than 30 minutes to prepare this patient for discharge Discharge Plan Discharge Items Patient Disposition: Home - Self-Care Reason For Visit: ASTHMA EXACERBATION Discharge Diagnosis: exacerbation of chronic lung disease bronchitis Activity: Resume your previous activity Non-emergency contact: Primary Care Provider and Medical Superintendent Call non-emergency contact if: you have any medication questions, your symptoms worsen and you have a fever Follow-up/Referrals: Vlad Leach MD [Primary Care Provider] - 01/19/21 11:00 am Diet: Regular Addtl Attending Provider Instructions: please gradually increase activity complete a taper of prednisone complete antibiotics consider exercises for improvement of posture Pending Studies at Discharge: No Stand-Alone Forms: My [facility], Smoking Cessation Medications and DC Order Prescriptions: New azithromycin 250 mg Tablet 250 mg PO QAM Qty: 3 RF: 0 guaifenesin [Mucinex] 600 mg Tablet Extended Release 12hr 600 mg PO Q12 Qty: 20 RF: 0 Striverdi Respimat 2.5 mcg/actuation Mist 2 puff inhalation DAILY Qty: 1 RF: 3 prednisone 10 mg tablet 10 mg PO UD Qty: 40 RF: 0 Continued alendronate 70 mg tablet 70 mg PO .Weekly Qty: 12 RF: 3 aspirin 81 mg tablet,delayed release (DR/EC) 81 mg PO QAM RF: 0 cholecalciferol (vitamin D3) 2,000 unit capsule 2,000 units PO HS Qty: 30 RF: 0 ascorbic acid (vitamin C) [Vitamin C] 500 mg Tablet 500 mg PO HS RF: 0 atorvastatin 40 mg tablet 40 mg PO HS RF: 0 amlodipine 5 mg tablet 5 mg PO HS RF: 0 atenolol 50 mg tablet 50 mg PO QAM RF: 0 Xarelto 20 mg tablet 20 mg PO HS RF: 0 albuterol sulfate [Ventolin HFA] 90 mcg/actuation HFA aerosol inhaler 2 puff inhalation Q6H PRN (Reason: shortness of breath or wheezing) Qty: 18 RF: 3 Discharge Orders: Discharge Order (Routine); Ordered 01/09/21 Ordered By: Rafat Carrera/Other Patient Handouts: Asthma Admission Data Admit Date/Time: 01/05/21 18:07 Attending Provider: Rafat Kapadia Admit Provider: Mynor Mckenna Primary Care Provider: Vlad Leach Other Interventions: Discharge Summary Assessment (RN) Last Done: 01/09/21 12:27 Coding Level of Care Code D/C Day Management >30 mins Diagnoses Asthma with exacerbation J45.31 Asthma severity: mild Asthma persistence: persistent (HFpEF) heart failure with preserved ejection fraction I50.30 Permanent atrial fibrillation I48.21 HTN (hypertension) I10 Hypertension type: essential hypertension Acute respiratory failure with hypoxia J96.01 Viral syndrome B34.9 Abnormal CXR R93.89 History of stroke Z86.73 Chronic kidney disease, stage 3a N18.31 DVT prophylaxis Z29.9
--- NOTE | 2021-01-19 14:24 | Coding Query ---
To promote full compliance with coding requirements relating to patient care, provider participation is requested in all cases of radio installer uncertainty. Please assist us with the question(s) below: Coding Question(s): The diagnosis below was documented in the Progress Notes 01/07 & 01/08, then subsequently fell off all further documentation on the Discharge Summary. Please indicate if it is still a possible diagnosis or ruled out. Physician's Response(s): POSSIBLE VIRAL PNEUMONIA ( ) Diagnosed and POA ( ) Diagnosed and not POA ( xx ) Ruled out ( ) Other (please specify) MTDD
== END 2021-01-09 13:48 | disposition home or self-care (01) | DRG 190 ==
LOC: ED 13:39 → 2N 18:07 → SUATTDRO 18:07 → 2N 20:00

== ENCOUNTER 2023-01-02 16:10 | Inpatient (IN) ==
--- NOTE | 2023-01-02 16:25 | Emergency Department Note ---
Impression & Plan GI bleed, Permanent atrial fibrillation, Hypercalcemia, Dyspnea ED Provider Note NAME: CLARE LILLY AGE: 82 SEX: F : 1940 ARRIVES VIA: Walk-In INFORMANT: Patient, ED PROVIDER(S): Nolan Guerra MD CHIEF COMPLAINT: Fatigue, weakness, dark stools MEDICAL DECISION MAKING: Patient presents with the above symptoms most notable and Monday believes that the patient symptoms have gotten progressively worse. IV established blood was obtained. Patient did have a rectal exam performed which was heme positive. Protonix bolus and drip ordered. Patient does take Eliquis for known history of A-fib. The patient's blood work shows leukopenia with a normal H&H and platelet count. Kidney function is unremarkable. Very mild hypercalcemia 10.7. Troponin was added and negative. Chest x-ray does not show any acute disease. Given the patient's positive Hemoccult study and associated thinner use believe it is appropriate to admit for continued observation treatment and trending of her H&H. I did speak with the on-call hospital service Dr. Elizabeth and the patient was admitted to the medicine service. Prior /Outside records reviewed: I did review a primary care visit from August the patient was seen for hypercalcemia A-fib hypertension hyperparathyroidism Differential diagnosis: Infection, dehydration, GI bleed, metabolic abnormality, hypo/hyperglycemia, electrolyte disturbance, anemia, hypoxia, cardiac sources, intracerebral event, toxicologic, neurologic, as well as other pathologies. Diagnostics, as interpreted by me: ECG: A-fib, rate of 58, normal QRS, normal axis Cardiac monitoring: An order was placed for continuous cardiac monitoring. The monitor shows a rate of 62 with irregularly irregular rhythm. Patient was placed on pulse oximetry Medical decision rules: none Imaging studies: See below I informally reviewed the patient's chest x-ray. No obvious pneumothorax. HPI: Patient presents due to concern for fatigue and weakness. Patient is also noted some exertional shortness of breath. Patient denies any chest pains. Patient's had no nausea or vomiting. The patient has noticed some dark stools as well as some darker colored urine. Patient does believe that the urine is slightly special loan officer than before. The patient does take Eliquis and aspirin for known history of A-fib and does follow with Dr. Felipe Castillo. Patient denies any falls or trauma. PAST MEDICAL HISTORY: See Below PAST SURGICAL HISTORY: See Below SOCIAL HISTORY: See Below HOME MEDICATIONS: See Below ALLERGIES: See Below VITALS: See Below PHYSICAL EXAMINATION: GENERAL: NAD, wearing glasses, non-toxic. EYE EXAM: Normal conjunctiva. PERRL, no anisocoria and EOM's grossly intact w/o pain. NECK: Supple, no nuchal rigidity, no adenopathy, non-tender. No signs of meningismus. FROM of the neck with good chin to chest and neck extension. No stridor. LUNGS: Clear to auscultation. Normal chest wall mechanics. HEART: NSR, no MRG. ABDOMEN: Abdomen soft, non-tender, no masses, no rebound or guarding. BACK: No CVA TTP. SKIN: No rashes and no bruising. Rectal: Nonthrombosed nonbleeding hemorrhoid, no obvious melenic stool, heme positive stool UPPER EXTREMITIES: Upper extremities are grossly normal. LOWER EXTREMITIES: Grossly normal, no edema. NEURO EXAM: A&O x3, cranial nerves II-XII grossly intact, normal speech, moves all 4 extremities. Past Med/Surg History Medical History Acid reflux Asthma-COPD overlap syndrome inh prn Chronic obstructive pulmonary disease inh prn Cough "still lingering after having Covid-19" Dyspnea on exertion "do ok with gardening and cleaning, but cannot exercise, like walking a couple miles or anything." History of COVID-19 begin 03/2022, home test, not hosp, put on Molnupiravir; cough, wheezing, fatigue>resolved. 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= no definitive residual effects, "possibly some memory effects"; f/u dr castillo, [place] Hx of chronic sinusitis Hx-TIA (transient ischemic attack) pt denies "my mother had them but I don't think i ever did." Hyperlipidemia Hypertension Mitral valve insufficiency Nausea and vomiting after administration of anesthetic agent "a long time ago after my hysterectomy in the late 1979's" Osteoarthritis Permanent atrial fibrillation on meds; f/u dr castillo, gibran Poor historian Pulmonary infiltrate present on computed tomography hx; f/u zoe wilson Secondary pulmonary hypertension f/u dr vilensky, [place] Skin cancer left eyebrow Sleep apnea tested "dr castillo wanted me to use a cpap, but at the time there was a malfunction of the machines and I couldn't get one. So I still don't currently have one." Venous insufficiency of left leg "has swelling in this leg often, happening for years" Voice hoarsenesses chronic Surgical History History of left knee replacement History of tonsillectomy Hx of abdominal surgery EXCISION LIPOMA - RIGHT Hx of breast surgery EXCISION LIPOMA --RIGHT Hx of colonoscopy Hx of hysterectomy S/P thyroid biopsy Status post Mohs surgery chemosurgery Family History Son Diabetes Asthma Father , Age 74 Acute myocardial infarction Hypertension Heart disease Mother , Age 78 Breast cancer Stroke Brother Pacemaker Intellectual disability Family/Other Coronary heart disease Daughter Asthma Other No family history of adverse response to anesthesia No family history of bleeding disorder Social History Smoking Status: Never smoker packs per day: 0.5; Second Hand Exposure: No; Do You Dip or Chew Tobacco: No; Hx Alcohol Use: No Hx Substance Use: No Preferred Language: Bahraini Communication Ability: Effective Visual Impairment: Limited Hearing Ability: Normal 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 Required: No Beliefs That Will Affect Care: None marital status: / Current Living Situation: Alone current occupational status: retired 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 How many Children do You have: 3 other: lives [place] a local farm by herself Feels Safe at Home: Yes Childhood Exposure to Second-Hand Smoke: No Diet: regular caffeine: Yes Dental Care, Regularly: Yes Physical Activity Frequency: Daily Physical Activity 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 Seatbelt Use: always Sunscreen Use: Yes Do you think of yourself as: straight/heterosexual Assistive Devices: Glasses Allergies Allergies Allergy/AdvReac Type Severity Reaction Status Date / Time oxycodone Allergy Severe anaphylaxis Verified 01/02/23 19:02 codeine Allergy Mild hives Verified 01/02/23 19:02 Penicillins Allergy Mild rash Verified 01/02/23 19:02 levofloxacin [From Levaquin] Allergy Unknown unknown Verified 01/02/23 19:02 reaction lisinopril Allergy Unknown lips Verified 01/02/23 19:02 swelling Home Meds Home Medications Medication Instructions Recorded Confirmed aspirin 81 mg tablet,delayed 81 mg PO QAM 02/12/19 01/02/23 release cholecalciferol (vitamin D3) 50 2,000 units PO QAM #30 caps 02/12/19 01/02/23 mcg (2,000 unit) capsule ascorbic acid (vitamin C) 1,000 mg 1 g PO QAM 06/08/21 01/02/23 tablet guaifenesin 600 mg tablet, 600 mg PO QAM 08/17/21 01/02/23 extended release 12 hr (Mucinex) apixaban 2.5 mg tablet (Eliquis) 2.5 mg PO BID 09/01/21 01/02/23 hydrochlorothiazide 12.5 mg tablet 12.5 mg PO HS 10/12/21 01/02/23 albuterol sulfate 90 mcg/actuation 1 puff inhalation QID PRN 04/11/22 01/02/23 aerosol inhaler Shortness Of Breath diltiazem HCl 120 mg 120 mg PO DAILY 08/02/22 01/02/23 capsule,extended release 24 hr (Cartia XT) alendronate 70 mg tablet 70 mg PO WK 01/02/23 01/02/23 cyanocobalamin (vitamin B-12) 1,000 mcg IM MONTHLY 01/02/23 01/02/23 1,000 mcg/mL injection solution Previous Rx's Medication Instructions Recorded atorvastatin 40 mg tablet 40 mg PO HS #90 tabs 09/08/22 Results & Data (ED) Vital Signs Vital Signs - 24 hr 01/02/23 16:10 01/02/23 16:52 Temperature 36.5 C Temperature Source Temporal Artery Scan Pulse Rate 77 61 Respiratory Rate 16 Respiratory Effort / Characteristics Non-Labored Spontaneous Respiratory Depth Normal Blood Pressure 155/67 H Blood Pressure Mean 96 Pulse Oximetry 95 Oxygen Delivery Method Room Air Sepsis Recent Fever Within 48 Hours No Sepsis New/Unexplained Change in Mental Status No Sepsis Action Taken by Nursing No Action Required Home Medications Current Medication List: was personally reviewed by me Laboratory Data Attestation: I reviewed the patient's lab results. 01/02/23 16:43 01/02/23 16:43 Lab Results 01/02/23 01/02/23 01/02/23 Range/Units 16:43 16:43 16:43 WBC 4.02 L (4.8-10.8) K/ul RBC 4.42 (4.20-5.40) M/uL Hgb 12.5 (12.0-16.0) g/dl Hct 38.1 (37.0-47.0) % MCV 86.2 (80.0-100.0) fL MCH 28.3 (25.0-34.0) pg MCHC 32.8 (32.0-36.0) g/dL RDW Std Deviation 39.9 (36.4-46.3) fL RDW Coeff of Kimberly 12.7 (11.5-14.5) % Plt Count 167 (130-400) K/uL MPV 10.6 (9.4-12.4) fL Immature Gran % (Auto) 0.2 % Neut % (Auto) 66.5 % Lymph % (Auto) 17.2 % Orange % (Auto) 14.4 % Eos % (Auto) 1.2 % Baso % (Auto) 0.5 % Neut # (Auto) 2.67 (1.40-6.50) K/uL Lymph # (Auto) 0.69 L (1.2-3.4) K/uL Orange # (Auto) 0.58 (0.11-0.59) K/uL Eos # (Auto) 0.05 (0-0.50) K/uL Baso # (Auto) 0.02 (0-0.2) K/uL Immature Gran # (Auto) 0.01 (0.01-0.20) K/uL PT (9.0-12.0) Seconds INR (0.9-1.1) APTT (21.0-31.0) Seconds PTT Ratio Sodium 137 (136-145) mmol/L Potassium 3.9 (3.5-5.1) mmol/L Chloride 102 (98-107) mmol/L Carbon Dioxide 30 (21-32) mmol/L Anion Gap 5 (3-11) BUN 17 (6-23) mg/dl Creatinine 0.93 (0.6-1.2) mg/dl Est Cr Clr Drug Dosing 38.9 ml/min Est GFR ( Amer) 65.4 ml/min Est GFR (Non-Af Amer) 56.4 ml/min BUN/Creatinine Ratio 18.3 (10-20) Glucose 106 H (70-99(Fasting)) mg/dl Calcium 10.7 H (8.6-10.3) mg/dl Iron 31 L (35-150) mcg/dl Ferritin 28.1 (8-388) ng/ml Total Bilirubin 1.3 H (0.2-1.0) mg/dl AST 16 (13-39) U/L ALT 12 (7-52) U/L Alkaline Phosphatase 83 (34-104) U/L Troponin I High Sens 9.0 (0-14) pg/ml Total Protein 6.8 (6.0-8.3) gm/dl Albumin 4.3 (3.4-5.0) gm/dl Globulin 2.5 (2.5-4.0) gm/dl Albumin/Globulin Ratio 1.7 (0.9-2) TSH 1.878 (0.300-4.500) uIu/ml SARS-CoV-2, RNA, NAAT (NEGATIVE) 01/02/23 01/02/23 Range/Units 16:43 18:09 WBC (4.8-10.8) K/ul RBC (4.20-5.40) M/uL Hgb (12.0-16.0) g/dl Hct (37.0-47.0) % MCV (80.0-100.0) fL MCH (25.0-34.0) pg MCHC (32.0-36.0) g/dL RDW Std Deviation (36.4-46.3) fL RDW Coeff of Kimberly (11.5-14.5) % Plt Count (130-400) K/uL MPV (9.4-12.4) fL Immature Gran % (Auto) % Neut % (Auto) % Lymph % (Auto) % Orange % (Auto) % Eos % (Auto) % Baso % (Auto) % Neut # (Auto) (1.40-6.50) K/uL Lymph # (Auto) (1.2-3.4) K/uL Orange # (Auto) (0.11-0.59) K/uL Eos # (Auto) (0-0.50) K/uL Baso # (Auto) (0-0.2) K/uL Immature Gran # (Auto) (0.01-0.20) K/uL PT 13.0 H (9.0-12.0) Seconds INR 1.2 H (0.9-1.1) APTT 28.8 (21.0-31.0) Seconds PTT Ratio 1.0 Sodium (136-145) mmol/L Potassium (3.5-5.1) mmol/L Chloride (98-107) mmol/L Carbon Dioxide (21-32) mmol/L Anion Gap (3-11) BUN (6-23) mg/dl Creatinine (0.6-1.2) mg/dl Est Cr Clr Drug Dosing ml/min Est GFR ( Amer) ml/min Est GFR (Non-Af Amer) ml/min BUN/Creatinine Ratio (10-20) Glucose (70-99(Fasting)) mg/dl Calcium (8.6-10.3) mg/dl Iron (35-150) mcg/dl Ferritin (8-388) ng/ml Total Bilirubin (0.2-1.0) mg/dl AST (13-39) U/L ALT (7-52) U/L Alkaline Phosphatase (34-104) U/L Troponin I High Sens (0-14) pg/ml Total Protein (6.0-8.3) gm/dl Albumin (3.4-5.0) gm/dl Globulin (2.5-4.0) gm/dl Albumin/Globulin Ratio (0.9-2) TSH (0.300-4.500) uIu/ml SARS-CoV-2, RNA, NAAT NEGATIVE (NEGATIVE) Administered Medications Discontinued Medications Sodium Chloride (Nss) 500 mls @ 999 mls/hr IV .Q31M JUNAID Stop: 01/02/23 17:15 Last Infusion: 01/02/23 19:38 Dose: 0 mls/hr Documented By: Admin: 01/02/23 18:04 Dose: 999 mls/hr Documented By: GLO Pantoprazole Sodium (Protonix Bolus/Drip) 0 mls @ 1 mls/hr IV ONE STA Stop: 01/02/23 17:29 Last Admin: 01/02/23 19:34 Dose: Not Given Documented By: NIDA Pantoprazole Sodium 80 mg/ (Dextrose) 120 mls @ 400 mls/hr IV NOW ONE Stop: 01/02/23 17:45 Last Infusion: 01/02/23 18:59 Dose: 0 mls/hr Documented By: Admin: 01/02/23 18:04 Dose: 400 mls/hr Documented By: GLO Pantoprazole Sodium 40 mg/ (Dextrose) 100 mls @ 20 mls/hr IV Q5H JUNAID Stop: 02/01/23 17:44 Last Admin: 01/02/23 19:30 Dose: 8 mg/hr, 20 mls/hr Documented By: NIDA Imaging Data Radiologist's Impression: Chest X-Ray 01/02/23 16:44 XR chest 1V portable CLINICAL HISTORY: weakness TECHNIQUE: Single frontal radiograph of the chest was obtained. Comparison: Comparison is made to chest radiograph 01/05/2021 FINDINGS: No lines and tubes are seen. Cardiomegaly is noted. The aortic arch is calcified. Emphysema is seen. No evidence of pleural effusion or pneumothorax. IMPRESSION: No acute chest disease. Cardiomegaly is noted. ACT 112: Negative or not required by law. Electronically signed by: Rayray Pritchard M.D. 01/02/2023 5:01 PM Discharge Plan Visit Data Chief Complaint: Illness Stated Complaint: DARK STOOL, TEA COLORED URINE ED Provider: Nolan Guerra Discharge Problem: GI bleed, Permanent atrial fibrillation, Hypercalcemia, Dyspnea Patient Disposition: Admitted As Inpatient Discharge Instructions Interventions: ED Discharge Assessment Last Done: 01/02/23 19:46
[2023-01-02] MEDS ORDERED: SODIUM CHLORIDE 0.9% 500 ML IV SCH (16:45)
--- NOTE | 2023-01-02 17:02 | XRay Report ---
XR chest 1V portable CLINICAL HISTORY: weakness TECHNIQUE: Single frontal radiograph of the chest was obtained. Comparison: Comparison is made to chest radiograph 01/05/2021 FINDINGS: No lines and tubes are seen. Cardiomegaly is noted. The aortic arch is calcified. Emphysema is seen. No evidence of pleural effusion or pneumothorax. IMPRESSION: No acute chest disease. Cardiomegaly is noted. ACT 112: Negative or not required by law. Electronically signed by: Rayray Pritchard M.D. 01/02/2023 5:01 PM
[2023-01-02 17:11] LABS: Basophils # (auto) 0.02 K/uL (0-0.2); Basophils % (auto) 0.5 %; Eosinophils # (auto) 0.05 K/uL (0-0.50); Eosinophils % (auto) 1.2 %; Hematocrit (blood only) 38.1 % (37.0-47.0); Hemoglobin 12.5 g/dl (12.0-16.0); Immature Granulocytes # (auto) 0.01 K/uL (0.01-0.20); Immature Granulocytes % (auto) 0.2 %; Lymphocytes # (auto) 0.69 K/uL (1.2-3.4); Lymphocytes % (auto) 17.2 %; Mean Corpuscular Hemoglobin 28.3 pg (25.0-34.0); Mean Corpuscular Hgb Conc 32.8 g/dL (32.0-36.0); Mean Corpuscular Volume 86.2 fL (80.0-100.0); Mean Platelet Volume 10.6 fL (9.4-12.4); Monocytes # (auto) 0.58 K/uL (0.11-0.59); Monocytes % (auto) 14.4 %; Neutrophils # (auto) 2.67 K/uL (1.40-6.50); Neutrophils % (auto) 66.5 %; Platelet Count 167 K/uL (130-400); RDW Coefficient of Variation 12.7 % (11.5-14.5); RDW Standard Deviation 39.9 fL (36.4-46.3); Red Blood Count 4.42 M/uL (4.20-5.40); White Blood Count 4.02 K/ul (4.8-10.8)
[2023-01-02 17:20] LABS: Albumin Globulin Ratio 1.7 (0.9-2); Albumin Level 4.3 gm/dl (3.4-5.0); BUN Creatinine Ratio 18.3 (10-20); Bilirubin,Total 1.3 mg/dl (0.2-1.0); Calcium 10.7 mg/dl (8.6-10.3); Creatinine Clr Calc Pharmacy 38.9 ml/min; Est GFR (African American) 65.4 ml/min; Est GFR (Non-African American) 56.4 ml/min; Globulin 2.5 gm/dl (2.5-4.0); Potassium 3.9 mmol/L (3.5-5.1); Total Protein 6.8 gm/dl (6.0-8.3)
[2023-01-02] MEDS ORDERED: PANTOprazole 80 MG in DEXTROSE 5% 100 ML IV ONE (17:28)
[2023-01-02] MEDS ORDERED: PANTOPRAZOLE BOLUS/DRIP 1 EACH IV STA (17:28)
[2023-01-02 17:37] LABS: INR 1.2 (0.9-1.1); Partial Thromboplastin Time 28.8 Seconds (21.0-31.0)
[2023-01-02] MEDS ORDERED: PANTOprazole 40 MG in DEXTROSE 5% 100 ML IV SCH (17:45)
--- NOTE | 2023-01-02 18:17 | History & Physical Report ---
Date of Service January 02, 2023 Assessment & Plan (1) Occult blood positive stool: Plan: ? GI bleed Baseline hemoglobin 1314, admitting hemoglobin 12.5 MCV 86 - [place]: The rectum, recto-sigmoid colon, sigmoid colon, descending colon, splenic flexure, transverse colon, hepatic flexure, ascending colon and cecum are normal. No specimens collected. - EGD: Normal esophagus. Gastric antral vascular ectasia without bleeding.Normal examined duodenum.No specimens collected. Sodium/potassium normal Baseline creatinine less than 1, admitting creatinine 0.93 High-sensitivity troponin normal Patient is not tachycardic or hypotensive. Given history of gave and black stools will trend H&H, low suspicion for volume upper GI bleed especially with normal BUN. Iron studies pending Discussed with GI. Will trend H&H. If stable can follow-up as outpatient with GI and would not scope at this time, if H&H drops then can consult for endoscopy. No transfusion indicated at time of admission. We will keep n.p.o. on IVF in case hemoglobin drops and scope is required Chronic microcytic iron deficiency anemia With additional B12 deficiency Has followed with heme-onc in the past - EGD 03/2022: Normal esophagus, moderate gastric ventral ectasia without bleeding. Duodenum normal. Hypercalcemia, hyperparathyroidism Chronic, trended Chronic atrial fibrillation On chronic DOAC Recently switched to diltiazem 120 mg with improvement of dyspnea/fatigue With easy fatigue. Had been evaluated by electrophysiology [facility] [place] did not think she would get any significant benefit from attempted cardioversion. 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 Moderate obstruction, air trapping, normal DLCO No wheezing, no acute exacerbation on admission DVT prophylaxis, pharmacal prophylaxis held for bleeding eval Disposition: PCU given concern for GI bleed with A-fib, availability of rate control agents CODE STATUS: DNR/DNI Diet: N.p.o. (2) (HFpEF) heart failure with preserved ejection fraction: (3) Asthma-COPD overlap syndrome: (4) Chronic obstructive pulmonary disease: (5) Permanent atrial fibrillation: (6) Pulmonary hypertension: History of Present Illness Primary Care Provider: Vlad Leach MD Asha is an 82-year-old female with a past medical history of hypertension, heart failure with preserved ejection fraction, pulmonary hypertension, laryngeal reflux disease, iron deficiency anemia, B12 anemia, asthmaCOPD overlap, permanent A-fib on apixaban Per ER patient is seen with fatigue, weakness, and intermittent dark stools while on aspirin/Eliquis. Rectal exam while in ER was heme positive. BUN is normal at 17 Since Monday (last 3 days) stools had become very dark. Stool are 'very very dark, I think black but maybe very dark brown.' No blood floating in the water. No stomach pain. +stomach gas. No NSAID use. Appetite has been decreaed for a few months at least appetite never really caem back after COVID due to her sense of taste being diminished. Urine was also dark (iced tea colored) Had not taken any iron supplements or pepto bismol. has been treated for iron deficiencies with iron infusions in the past. Last iron infusion was 'last year at least probably.' No other bleeding. No nosebleeds. 2 years ago had a hemorrhagic effusion of the RIGHT knee. Has a L knee replacement. Hx of hypercalcemia. Followed as outpatient She had fatigue at baseline due to her afib, but feels this was worse today and yesterday and more than her normal so came to the ER. Has not had any syncope, presyncope, chest pain, chest epigastric pain, nausea/vomiting Called Dr. Leach and recommended she be evaluated in the ER. Medical History: Reviewed Medications: Reviewed Surgical History: Reviewed Family history: Reviewed Allergies: Reviewed Social History:No tobacco/Etoh Code Status: DNR/DNI Allergies Allergy/AdvReac Type Severity Reaction Status Date / Time oxycodone Allergy Severe anaphylaxis Verified 01/02/23 19:02 codeine Allergy Mild hives Verified 01/02/23 19:02 Penicillins Allergy Mild rash Verified 01/02/23 19:02 levofloxacin [From Levaquin] Allergy Unknown unknown Verified 01/02/23 19:02 reaction lisinopril Allergy Unknown lips Verified 01/02/23 19:02 swelling Home Medications Medication Instructions Recorded Confirmed Type aspirin 81 mg tablet,delayed 81 mg PO QAM 02/12/19 12/15/22 History release cholecalciferol (vitamin D3) 50 2,000 units PO QPM #30 caps 02/12/19 12/15/22 History mcg (2,000 unit) capsule ascorbic acid (vitamin C) 1,000 mg 1 g PO QPM 06/08/21 12/15/22 History tablet guaifenesin 600 mg tablet, 600 mg PO QAM 08/17/21 12/15/22 History extended release 12 hr (Mucinex) apixaban 2.5 mg tablet (Eliquis) 2.5 mg PO BID 09/01/21 12/15/22 History hydrochlorothiazide 12.5 mg tablet 12.5 mg PO QAM 10/12/21 12/15/22 History albuterol sulfate 90 mcg/actuation 1 puff inhalation QID PRN 04/11/22 12/15/22 History aerosol inhaler Shortness Of Breath diltiazem HCl 120 mg 120 mg PO DAILY 08/02/22 12/15/22 History capsule,extended release 24 hr (Cartia XT) atorvastatin 40 mg tablet 40 mg PO HS #90 tabs 09/08/22 12/15/22 Rx alendronate 70 mg tablet See Rx Instructions .Route 09/10/22 12/15/22 Rx .COMPLEX #12 tabs Vitamin B-12 IM MONTHLY 12/15/22 History Past Med/Surg History Medical History Acid reflux Asthma-COPD overlap syndrome Chronic obstructive pulmonary disease Cough Dyspnea on exertion History of COVID-19 History of stroke Hx of chronic sinusitis Hx-TIA (transient ischemic attack) Hyperlipidemia Hypertension Mitral valve insufficiency Nausea and vomiting after administration of anesthetic agent Osteoarthritis Permanent atrial fibrillation Poor historian Pulmonary infiltrate present on computed tomography Secondary pulmonary hypertension Skin cancer Sleep apnea Venous insufficiency of left leg Voice hoarsenesses Surgical History History of left knee replacement History of tonsillectomy Hx of abdominal surgery Hx of breast surgery Hx of colonoscopy Hx of hysterectomy S/P thyroid biopsy Status post Mohs surgery Family History Son Diabetes Asthma Father Acute myocardial infarction Hypertension Heart disease Mother Breast cancer Stroke Brother Pacemaker Intellectual disability Family/Other Coronary heart disease Daughter Asthma Other No family history of adverse response to anesthesia No family history of bleeding disorder Social History Smoking Status: Never smoker packs per day: 0.5; Second Hand Exposure: No; Do You Dip or Chew Tobacco: No; Hx Alcohol Use: No Hx Substance Use: No Preferred Language: Icelandic Communication Ability: Effective Visual Impairment: Limited Hearing Ability: Normal Back 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: No Beliefs That Will Affect Care: None marital status: / Current Living Situation: Alone current occupational status: retired current occupation: worked at [employer] programs How many Children do You have: 3 other: [place] a local farm by herself Feels Safe at Home: Yes Childhood Exposure to Second-Hand Smoke: No Diet: regular caffeine: Yes Dental Care, Regularly: Yes Physical Activity Frequency: Daily Physical Activity 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 NAD. Cooperative. HEENT: Atraumatic, normocephalic. Vision/hearing intact. Pulm: CTAB A&P. -wheezes, -rales, -rhonchi. Symmetrical chest rise. No increased work of breathing. No respiratory distress. Cardiac: RRR, -mrg. Radial pulses intact and symmetrical. Abdominal: Nontender, nondistended, soft. BS present. Extremities: Warm, dry. 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 Sensation soft touch intact in hands and feet Results & Data Results & Data Vital Signs (Past 12 Hours) Vital Signs Temp Pulse Resp BP Pulse Ox O2 Del Method 01/02/23 16:52 61 01/02/23 16:10 36.5 C 77 16 155/67 H 95 Room Air PG Care Time/CCT Total # of Minutes Spent Total Time Spent with Patient: Total time spent is greater than 50% in coordination of care (as documented) at patient's floor/unit and/or counseling patient: Coding Level of Care Code 46069 INT INP/OBS CARE MIN Diagnoses Occult blood positive stool R19.5 (HFpEF) heart failure with preserved ejection fraction I50.30 Asthma-COPD overlap syndrome J44.9 Chronic obstructive pulmonary disease J44.9 Permanent atrial fibrillation I48.21 Pulmonary hypertension I27.20
[2023-01-02 19:44] LABS: Appearance Urine Clear (Clear); Bacteria Urine Automated Negative (Negative); Bilirubin Urine Negative (Negative); Blood Urine 3+ (Negative); Cast Urine Automated 0 /lpf (0-5); Color Urine Yellow; Epithelial Cell Urine Auto 20-30 /lpf (0-5); Glucose Urine UA Negative (Negative); Ketones Urine Negative (Negative); Leukocyte Esterase Urine Trace (Negative); Nitrite Urine Negative (Negative); Protein Urine Negative (Negative); RBC Urine Automated >30 /hpf (0-4); Specific Gravity Urine 1.004 (1.000-1.030); Urobilinogen Urine Negative (Negative); pH Urine 7.5 (4.5-7.5)
[2023-01-02 20:37] LABS: Ferritin 28.1 ng/ml (8-388)
[2023-01-02] MEDS ORDERED: ALBUTEROL HFA 8 GM INHALER INH PRN (21:14)
[2023-01-02] MEDS ORDERED: ACETAMINOPHEN 325 MG TAB PO PRN (21:14)
[2023-01-02] MEDS: LACTATED RINGER'S 1,000 ML IV SCH (22:15)
[2023-01-02] MEDS: PANTOprazole 40 MG in SYRINGE 0 ML IV SCH (22:15)
[2023-01-02] MEDS: ATORVASTATIN 40 MG TAB PO SCH (22:15)
[2023-01-02 22:20] LABS: Hematocrit (blood only) 35.1 % (37.0-47.0); Hemoglobin 11.7 g/dl (12.0-16.0)
[2023-01-03 03:34] LABS: Basophils # (auto) 0.03 K/uL (0-0.2); Basophils % (auto) 0.7 %; Eosinophils # (auto) 0.09 K/uL (0-0.50); Eosinophils % (auto) 2.1 %; Hematocrit (blood only) 34.8 % (37.0-47.0); Hemoglobin 11.4 g/dl (12.0-16.0); Immature Granulocytes # (auto) 0.01 K/uL (0.01-0.20); Immature Granulocytes % (auto) 0.2 %; Lymphocytes # (auto) 0.69 K/uL (1.2-3.4); Lymphocytes % (auto) 16.3 %; Mean Corpuscular Hemoglobin 28.3 pg (25.0-34.0); Mean Corpuscular Hgb Conc 32.8 g/dL (32.0-36.0); Mean Corpuscular Volume 86.4 fL (80.0-100.0); Mean Platelet Volume 9.9 fL (9.4-12.4); Monocytes # (auto) 0.43 K/uL (0.11-0.59); Monocytes % (auto) 10.2 %; Neutrophils # (auto) 2.98 K/uL (1.40-6.50); Neutrophils % (auto) 70.5 %; Platelet Count 123 K/uL (130-400); RDW Coefficient of Variation 12.8 % (11.5-14.5); RDW Standard Deviation 40.1 fL (36.4-46.3); Red Blood Count 4.03 M/uL (4.20-5.40); White Blood Count 4.23 K/ul (4.8-10.8)
[2023-01-03 03:52] LABS: BUN Creatinine Ratio 14.1 (10-20); Calcium 9.7 mg/dl (8.6-10.3); Creatinine Clr Calc Pharmacy 42.5 ml/min; Est GFR (African American) 72.9 ml/min; Est GFR (Non-African American) 62.9 ml/min; Potassium 4.1 mmol/L (3.5-5.1)
[2023-01-03] MEDS: PANTOprazole 40 MG in SYRINGE 0 ML IV SCH ×2 (08:21→21:15)
[2023-01-03] MEDS: dilTIAZem HCL 120 MG CAPCR PO SCH (08:21)
[2023-01-03] MEDS ORDERED: IRON SUCROSE 200 MG in 0.9 % SODIUM CHLORIDE 100 ML IV ONE (08:30)
[2023-01-03] MEDS: LACTATED RINGER'S 1,000 ML IV SCH ×2 (09:23→21:20)
--- NOTE | 2023-01-03 09:49 | Gastrointestinal Consultation ---
Date of Consultation January 03, 2023 Assessment & Plan (1) GAVE (gastric antral vascular ectasia): (2) Melena: Plan Patient is a 82 y.o. female with a known history of GAVE admitted with melena, weakness/fatigue and acute blood loss anemia. Had a discussion with the patient and daughter. Her melena has resolved off Eliquis and H&H is stable. No plan for emergent EGD as bleeding has likely spontaneously stopped. Will initiate a clear liquid diet today but keep NPO after midnight. If any returning overt GIB sx or significant drop in H&H, would then proceed with EGD. Continue Pantoprazole 40 mg BID. Discussed that her risk of rebleeding when Eliquis is resumed is high with GAVE, she should remain on PPI therapy upon discharge indefinitely. Patient and daughter were in agreement with the plan as December verbalized she would like to avoid unnecessary procedures if possible. Thank you for allowing us to participate in the care of this patient. If you have any questions or concerns, please do not hesitate to contact us. Supervising Physician Co-Signing Physician Notes Agree with MONICA Walsh as above Abd: Soft, NT, ND, +BS Continue current therapy and supportive care No plans for invasive workup at present History of Present Illness Reason for Consultation: Melena on Eliquis Requesting Physician: Dr. Crocker Attending Physician: Jerald Crocker MD History of Present Illness Patient is a 82 y.o. female with a history of permanent atrial fibrillation on Eliquis, CVA, Asthma, COPD, GERD and GAVE admitted with symptoms of melena, increased fatigue and weakness beginning three days RETREADER. She is a patient of [facility]. We are evaluating this patient in coverage during this hospitalization. She was previously hospitalized with ANKUR and did undergo both EGD and colonoscopy by Dr. Rivas in March of 2022. At that time, the GAVE was not actively bleeding and no intervention was required. Patient did resume Eliquis upon discharge but states she was not discharged home on PPI. Currently, her hemoglobin is noted to be 11.4 and was 11.7 yesterday. BUN is normal. No further melena. In fact, she denies any bowel movements since admission. Patient is having her anticoagulant held, started on Pantoprazole 40 mg BID and NPO. Denies any abdominal pain, n/v. Endorses decreased appetite but states this is a chronic issue. Allergies Allergy/AdvReac Type Severity Reaction Status Date / Time oxycodone Allergy Severe anaphylaxis Verified 01/02/23 19:02 codeine Allergy Mild hives Verified 01/02/23 19:02 Penicillins Allergy Mild rash Verified 01/02/23 19:02 levofloxacin [From Levaquin] Allergy Unknown unknown Verified 01/02/23 19:02 reaction lisinopril Allergy Unknown lips Verified 01/02/23 19:02 swelling Home Medications Medication Instructions Recorded Confirmed Type aspirin 81 mg tablet,delayed 81 mg PO QAM 02/12/19 01/02/23 History release cholecalciferol (vitamin D3) 50 2,000 units PO QAM #30 caps 02/12/19 01/02/23 History mcg (2,000 unit) capsule ascorbic acid (vitamin C) 1,000 mg 1 g PO QAM 06/08/21 01/02/23 History tablet guaifenesin 600 mg tablet, 600 mg PO QAM 08/17/21 01/02/23 History extended release 12 hr (Mucinex) apixaban 2.5 mg tablet (Eliquis) 2.5 mg PO BID 09/01/21 01/02/23 History hydrochlorothiazide 12.5 mg tablet 12.5 mg PO HS 10/12/21 01/02/23 History albuterol sulfate 90 mcg/actuation 1 puff inhalation QID PRN 04/11/22 01/02/23 H istory aerosol inhaler Shortness Of Breath diltiazem HCl 120 mg 120 mg PO DAILY 08/02/22 01/02/23 History capsule,extended release 24 hr (Cartia XT) atorvastatin 40 mg tablet 40 mg PO HS #90 tabs 09/08/22 01/02/23 Rx alendronate 70 mg tablet 70 mg PO WK 01/02/23 01/02/23 History cyanocobalamin (vitamin B-12) 1,000 mcg IM MONTHLY 01/02/23 01/02/23 History 1,000 mcg/mL injection solution Patient History Medical History Acid reflux Asthma-COPD overlap syndrome inh prn Chronic obstructive pulmonary disease inh prn Cough "still lingering after having Covid-19" Dyspnea on exertion "do ok with gardening and cleaning, but cannot exercise, like walking a couple miles or anything." History of COVID-19 begin 03/2022, home test, not hosp, put on Molnupiravir; cough, wheezing, fatigue>resolved. 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= no definitive residual effects, "possibly some memory effects"; f/u dr castillo, [facility] Hx of chronic sinusitis Hx-TIA (transient ischemic attack) pt denies "my mother had them but I don't think i ever did." Hyperlipidemia Hypertension Mitral valve insufficiency Nausea and vomiting after administration of anesthetic agent "a long time ago after my hysterectomy in the late " Osteoarthritis Permanent atrial fibrillation on meds; f/u dr castillo [facility] Poor historian Pulmonary infiltrate present on computed tomography hx; f/u [facility] Secondary pulmonary hypertension f/u [facility] wil[facility] Skin cancer left eyebrow Sleep apnea tested "dr castillo wanted me to use a cpap, but at the time there was a malfunction of the machines and I couldn't get one. So I still don't currently have one." Venous insufficiency of left leg "has swelling in this leg often, happening for years" Voice hoarsenesses chronic Surgical History History of left knee replacement History of tonsillectomy Hx of abdominal surgery EXCISION LIPOMA - RIGHT Hx of breast surgery EXCISION LIPOMA --RIGHT Hx of colonoscopy Hx of hysterectomy S/P thyroid biopsy Status post Mohs surgery chemosurgery Family History Son Diabetes Asthma Father , Age 74 Acute myocardial infarction Hypertension Heart disease Mother , Age 78 Breast cancer Stroke Brother Pacemaker Intellectual disability Family/Other Coronary heart disease Daughter Asthma Other No family history of adverse response to anesthesia No family history of bleeding disorder Social History Smoking Status: Never smoker packs per day: 0.5; Second Hand Exposure: No; Do You Dip or Chew Tobacco: No; Hx Alcohol Use: No Hx Substance Use: No Preferred Language: Greenlandic Communication Ability: Effective Visual Impairment: Limited Hearing Ability: Normal Stock Counter Required: No Beliefs That Will Affect Care: None marital status: / Current Living Situation: Alone current occupational status: retired current occupation: worked at [employer] How many Children do You have: 3 Other Information That Helps Us Care for You: No other: [place] by [place] Feels Safe at Home: Yes Safety Concerns: Feels Safe At This Time Childhood Exposure to Second-Hand Smoke: No Diet: regular caffeine: Yes Dental Care, Regularly: Yes Physical Activity Frequency: Daily Physical Activity 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 pors[place]imeagan Seatbelt Use: always Sunscreen Use: Yes Do you think of yourself as: straight/heterosexual Assistive Devices: Glasses Review of Systems Constitutional: as per Subjective / HPI Respiratory: no cough and no dyspnea Cardiovascular: no chest pain and no palpitations Gastrointestinal: as per Subjective / HPI Physical Exam Constitutional: WD/WN, vitals as above Eyes: EOM intact bilaterally Neck: normal visual inspection Respiratory: normal respiratory effort, lungs clear to auscultation Cardiovascular: Rate/Rhythm: + irregularly irregular Heart Sounds: + murmur Gastrointestinal (Abdomen): normal bowel sounds, soft, nontender, no hepatosplenomegaly Musculoskeletal: Extremities: extremities normal to inspection Skin: warm and dry Psychiatric: A+Ox3, euthymic affect Results & Data Vital Signs (Past 12 Hours) Vital Signs Temp Pulse Pulse Resp BP Pulse Ox O2 Del Method 01/03/23 08:12 36.8 C 79 18 174/85 H 92 Room Air 01/03/23 07:34 70 01/03/23 02:54 36.6 C 74 16 159/76 H 94 Room Air 01/02/23 22:55 36.6 C 74 18 166/75 H 93 Room Air Diagnostic Findings Laboratory Results WBC 4.23 K/ul (4.8-10.8) L 01/03/23 03:19 RBC 4.03 M/uL (4.20-5.40) L 01/03/23 03:19 Hgb 11.7 g/dl (12.0-16.0) L 01/03/23 09:20 Hct 35.5 % (37.0-47.0) L 01/03/23 09:20 MCV 86.4 fL (80.0-100.0) 01/03/23 03:19 MCH 28.3 pg (25.0-34.0) 01/03/23 03:19 MCHC 32.8 g/dL (32.0-36.0) 01/03/23 03:19 RDW Std Deviation 40.1 fL (36.4-46.3) 01/03/23 03:19 RDW Coeff of Kimberly 12.8 % (11.5-14.5) 01/03/23 03:19 Plt Count 123 K/uL (130-400) L 01/03/23 03:19 MPV 9.9 fL (9.4-12.4) 01/03/23 03:19 Immature Gran % (Auto) 0.2 % 01/03/23 03:19 Neut % (Auto) 70.5 % 01/03/23 03:19 Lymph % (Auto) 16.3 % 01/03/23 03:19 Gibson % (Auto) 10.2 % 01/03/23 03:19 Eos % (Auto) 2.1 % 01/03/23 03:19 Baso % (Auto) 0.7 % 01/03/23 03:19 Neut # (Auto) 2.98 K/uL (1.40-6.50) 01/03/23 03:19 Lymph # (Auto) 0.69 K/uL (1.2-3.4) L 01/03/23 03:19 Gibson # (Auto) 0.43 K/uL (0.11-0.59) 01/03/23 03:19 Eos # (Auto) 0.09 K/uL (0-0.50) 01/03/23 03:19 Baso # (Auto) 0.03 K/uL (0-0.2) 01/03/23 03:19 Immature Gran # (Auto) 0.01 K/uL (0.01-0.20) 01/03/23 03:19 PT 13.0 Seconds (9.0-12.0) H 01/02/23 16:43 INR 1.2 (0.9-1.1) H 01/02/23 16:43 APTT 28.8 Seconds (21.0-31.0) 01/02/23 16:43 PTT Ratio 1.0 01/02/23 16:43 Sodium 138 mmol/L (136-145) 01/03/23 03:19 Potassium 4.1 mmol/L (3.5-5.1) 01/03/23 03:19 Chloride 104 mmol/L (98-107) 01/03/23 03:19 Carbon Dioxide 30 mmol/L (21-32) 01/03/23 03:19 Anion Gap 4 (3-11) 01/03/23 03:19 BUN 12 mg/dl (6-23) 01/03/23 03:19 Creatinine 0.85 mg/dl (0.6-1.2) 01/03/23 03:19 Est Cr Clr Drug Dosing 42.5 ml/min 01/03/23 03:19 Est GFR ( Amer) 72.9 ml/min 01/03/23 03:19 Est GFR (Non-Af Amer) 62.9 ml/min 01/03/23 03:19 BUN/Creatinine Ratio 14.1 (10-20) 01/03/23 03:19 Glucose 112 mg/dl (70-99(Fasting)) H 01/03/23 03:19 Calcium 9.7 mg/dl (8.6-10.3) 01/03/23 03:19 Iron 31 mcg/dl (35-150) L 01/02/23 16:43 Ferritin 28.1 ng/ml (8-388) 01/02/23 16:43 Total Bilirubin 1.3 mg/dl (0.2-1.0) H 01/02/23 16:43 AST 16 U/L (13-39) 01/02/23 16:43 ALT 12 U/L (7-52) 01/02/23 16:43 Alkaline Phosphatase 83 U/L (34-104) 01/02/23 16:43 Troponin I High Sens 9.0 pg/ml (0-14) 01/02/23 16:43 Total Protein 6.8 gm/dl (6.0-8.3) 01/02/23 16:43 Albumin 4.3 gm/dl (3.4-5.0) 01/02/23 16:43 Globulin 2.5 gm/dl (2.5-4.0) 01/02/23 16:43 Albumin/Globulin Ratio 1.7 (0.9-2) 01/02/23 16:43 Vitamin B12 633 pg/ml (180-914) 01/02/23 19:55 TSH 1.878 uIu/ml (0.300-4.500) 01/02/23 16:43 Urine Color Yellow 01/02/23 19:34 Urine Appearance Clear (Clear) 01/02/23 19:34 Urine pH 7.5 (4.5-7.5) 01/02/23 19:34 Ur Specific [place] 1.004 (1.000-1.030) 01/02/23 19:34 Urine Protein Negative (Negative) 01/02/23 19:34 Urine Glucose (UA) Negative (Negative) 01/02/23 19:34 Urine Ketones Negative (Negative) 01/02/23 19:34 Urine Blood 3+ (Negative) H 01/02/23 19:34 Urine Nitrite Negative (Negative) 01/02/23 19:34 Urine Bilirubin Negative (Negative) 01/02/23 19:34 Urine Urobilinogen Negative (Negative) 01/02/23 19:34 Ur Leukocyte Esterase Trace (Negative) H 01/02/23 19:34 Urine WBC (Auto) 1-5 /hpf (0-5) 01/02/23 19:34 Urine RBC (Auto) >30 /hpf (0-4) H 01/02/23 19:34 U Hyaline Cast (Auto) 0 /lpf (0-5) 01/02/23 19:34 U Epithel Cells (Auto) 20-30 /lpf (0-5) H 01/02/23 19:34 Urine Bacteria (Auto) Negative (Negative) 01/02/23 19:34 SARS-CoV-2, RNA, NAAT NEGATIVE (NEGATIVE) 01/02/23 18:09 Impressions Chest X-Ray 01/02/23 16:44 XR chest 1V portable CLINICAL HISTORY: weakness TECHNIQUE: Single frontal radiograph of the chest was obtained. Comparison: Comparison is made to chest radiograph 01/05/2021 FINDINGS: No lines and tubes are seen. Cardiomegaly is noted. The aortic arch is calcified. Emphysema is seen. No evidence of pleural effusion or pneumothorax. IMPRESSION: No acute chest disease. Cardiomegaly is noted. ACT 112: Negative or not required by law. Electronically signed by: Rayray Pritchard M.D. 01/02/2023 5:01 PM PG Care Time/CCT Total # of Minutes Spent Total Time Spent with Patient: Total time spent is greater than 50% in coordination of care (as documented) at patient's floor/unit and/or counseling patient: Coding Level of Care Code 50612 INT INP/OBS CARE 3/75MIN Diagnoses GAVE (gastric antral vascular ectasia) K31.819 Melena K92.1
[2023-01-03 09:55] LABS: Hematocrit (blood only) 35.5 % (37.0-47.0); Hemoglobin 11.7 g/dl (12.0-16.0)
--- NOTE | 2023-01-03 12:51 | Hospitalist Progress Note ---
Date of Service January 03, 2023 Assessment & Plan (1) Occult blood positive stool: Plan: Known gastric antral vascular ectasia. Eliquis has been discontinued. GI consultation appreciated. We will monitor H&H. No EGD at this time unless hemoglobin level drops significantly. Continue Protonix and Carafate therapy (2) (HFpEF) heart failure with preserved ejection fraction: Plan: Stable. Monitor intake and output. (3) Asthma-COPD overlap syndrome: Plan: Stable. Continue current medications (4) Chronic obstructive pulmonary disease: Plan: Stable. Continue current medications (5) Permanent atrial fibrillation: Plan: Ventricular rate is controlled. Eliquis has been discontinued for now. (6) Pulmonary hypertension: Plan: No acute intervention necessary at this time Plan Hopefully she will be able to go home tomorrow, January 04, if hemoglobin remained stable. She will remain off Eliquis for the time being Admission and Anticipated Discharge Date Admission Date: January 03, 2023 Subjective Alert and oriented. No acute distress. Gastroenterology consultation appreciated. Hemoglobin is stable. No EGD at this time unless hemoglobin drops further. Known gastric antral vascular ectasia. Iron deficiency noted. Parenteral iron replacement started. She is now on a clear liquid diet. Carafate has been added to Protonix. Hopefully she can go home tomorrow, January 04, if she remains stable Review of Systems Review of Systems: Constitutional-no fever or chills ENT-no blurred vision, no double vision, no epistaxis, no sore throat Respiratory-no cough, no wheezing, no shortness of breath Cardiac-no palpitations, no chest pain, no syncope GI-no nausea, vomiting, diarrhea, hematochezia. She has had recent melena -no urinary retention, no urinary incontinence, no dysuria, no hematuria Musculoskeletal-no joint pain, no muscle tenderness Skin-no bruising, no rashes, no pruritus Neuro-no isolated weakness, no paresthesia, no weakness Psych-no depression, no anxiety Physical Exam Physical Exam: General-alert and oriented x3, no fevers, no chills HEENT-head atraumatic and normocephalic, pupils equal and reactive to light, extraocular muscles intact Neck-no lymphadenopathy or thyromegaly, trachea midline Chest-clear to auscultation percussion. No rales wheezing or rhonchi Cardiac-regular rate and rhythm, normal S1 and S2 Abdomen-normal bowel sounds, nontender, no hepatosplenomegaly Extremities-no cyanosis, clubbing, or edema Neuro-cranial nerves II through XII intact, motor and sensory function within normal limits, strength symmetrical , no focal deficits Psych-normal affect, normal mood Results & Data Results & Data Vital Signs (Past 12 Hours) Vital Signs Temp Pulse Pulse Resp BP Pulse Ox O2 Del Method 01/03/23 11:45 36.8 C 74 20 159/75 H 94 Room Air 01/03/23 08:12 36.8 C 79 18 174/85 H 92 Room Air 01/03/23 07:34 70 01/03/23 02:54 36.6 C 74 16 159/76 H 94 Room Air Laboratory Results 01/03/23 09:20 01/03/23 03:19 PG Care Time/CCT Total # of Minutes Spent Total Time Spent with Patient: Total time spent is greater than 50% in coordination of care (as documented) at patient's floor/unit and/or counseling patient: Coding Level of Care Code 74714 SUB INP/OBS CARE 3/50MIN Diagnoses Occult blood positive stool R19.5 (HFpEF) heart failure with preserved ejection fraction I50.30 Asthma-COPD overlap syndrome J44.9 Chronic obstructive pulmonary disease J44.9 Permanent atrial fibrillation I48.21 Pulmonary hypertension I27.20
[2023-01-03] MEDS: SUCRALFATE 1 GM TAB PO SCH ×3 (13:15→21:17)
[2023-01-03] MEDS: ATORVASTATIN 40 MG TAB PO SCH (21:17)
[2023-01-04 06:35] LABS: Basophils # (auto) 0.01 K/uL (0-0.2); Basophils % (auto) 0.4 %; Eosinophils # (auto) 0.05 K/uL (0-0.50); Hematocrit (blood only) 36.2 % (37.0-47.0); Lymphocytes # (auto) 0.42 K/uL (1.2-3.4); Mean Corpuscular Hemoglobin 28.2 pg (25.0-34.0); Mean Corpuscular Hgb Conc 33.1 g/dL (32.0-36.0); Mean Platelet Volume 10.6 fL (9.4-12.4); Monocytes # (auto) 0.34 K/uL (0.11-0.59); Monocytes % (auto) 13.8 %; Neutrophils # (auto) 1.65 K/uL (1.40-6.50); Neutrophils % (auto) 66.8 %; Platelet Count 115 K/uL (130-400); RDW Standard Deviation 39.7 fL (36.4-46.3); Red Blood Count 4.26 M/uL (4.20-5.40); White Blood Count 2.47 K/ul (4.8-10.8)
[2023-01-04 06:56] LABS: BUN Creatinine Ratio 11.4 (10-20); Calcium 9.6 mg/dl (8.6-10.3); Creatinine Clr Calc Pharmacy 51.7 ml/min; Est GFR (African American) 92.2 ml/min; Est GFR (Non-African American) 79.6 ml/min; Potassium 4.2 mmol/L (3.5-5.1)
[2023-01-04] MEDS: PANTOprazole 40 MG in SYRINGE 0 ML IV SCH (07:40)
[2023-01-04] MEDS: dilTIAZem HCL 120 MG CAPCR PO SCH (07:40)
[2023-01-04] MEDS: SUCRALFATE 1 GM TAB PO SCH ×2 (07:40→12:42)
[2023-01-04] MEDS ORDERED: IRON SUCROSE 200 MG in 0.9 % SODIUM CHLORIDE 100 ML IV ONE (10:00)
--- NOTE | 2023-01-04 10:44 | Gastroenterology Progress Note ---
Date of Service January 04, 2023 Assessment & Plan (1) GAVE (gastric antral vascular ectasia): (2) Melena: Plan 1. Diet as tolerated. 2. Continue Pantoprazole 40 mg BID for 6 weeks, then daily thereafter upon discharge. 3. GI sign off at this time. Admission and Anticipated Discharge Date Admission Date: January 03, 2023 Subjective Patient is currently without any GI complaints. No returning melena. Hemoglobin has normalized. Remains on BID PPI. Review of Systems Constitutional: no problem reported Gastrointestinal: as per Subjective / HPI Physical Exam Constitutional: WD/WN, vitals as above Eyes: EOM intact bilaterally Neck: normal visual inspection Respiratory: normal respiratory effort, lungs clear to auscultation Cardiovascular: Rate/Rhythm: + irregularly irregular Heart Sounds: + murmur Gastrointestinal (Abdomen): normal bowel sounds, soft, nontender, no hepatosplenomegaly Musculoskeletal: Extremities: extremities normal to inspection Psychiatric: A+Ox3, euthymic affect Results & Data Results & Data Vital Signs (Past 12 Hours) Vital Signs Temp Pulse Pulse Resp BP BP Pulse Ox 01/04/23 08:02 01/04/23 07:31 81 01/04/23 07:28 171/97 H 01/04/23 07:25 36.5 C 88 18 184/86 H 95 01/04/23 02:50 36.5 C 75 16 146/79 H 94 01/03/23 22:44 36.8 C 82 16 167/79 H 95 Pulse Ox O2 Del Method O2 Del Method 01/04/23 08:02 93 Room Air 01/04/23 07:31 01/04/23 07:28 01/04/23 07:25 Room Air 01/04/23 02:50 Room Air 01/03/23 22:44 Room Air Laboratory Results Abnormal lab results 01/04/23 Range/Units 05:44 WBC 2.47 L (4.8-10.8) K/ul Hct 36.2 L (37.0-47.0) % Plt Count 115 L (130-400) K/uL Lymph # (Auto) 0.42 L (1.2-3.4) K/uL Immature Gran # (Auto) 0.00 L (0.01-0.20) K/uL PG Care Time/CCT Total # of Minutes Spent Total Time Spent with Patient: Total time spent is greater than 50% in coordination of care (as documented) at patient's floor/unit and/or counseling patient: Coding Level of Care Code 71664 SUB INP/OBS CARE 350MIN Diagnoses GAVE (gastric antral vascular ectasia) K31.819 Melena K92.1
--- NOTE | 2023-01-04 13:24 | Discharge Summary ---
Date of Service January 04, 2023 Admission HPI Per Admitting Provider Asha is an 82-year-old female with a past medical history of hypertension, heart failure with preserved ejection fraction, pulmonary hypertension, laryngeal reflux disease, iron deficiency anemia, B12 anemia, asthmaCOPD overlap, permanent A-fib on apixaban Per ER patient is seen with fatigue, weakness, and intermittent dark stools while on aspirin/Eliquis. Rectal exam while in ER was heme positive. BUN is normal at 17 Since Monday (last 3 days) stools had become very dark. Stool are 'very very dark, I think black but maybe very dark brown.' No blood floating in the water. No stomach pain. +stomach gas. No NSAID use. Appetite has been decreaed for a few months at least appetite never really caem back after COVID due to her sense of taste being diminished. Urine was also dark (iced tea colored) Had not taken any iron supplements or pepto bismol. has been treated for iron deficiencies with iron infusions in the past. Last iron infusion was 'last year at least probably.' No other bleeding. No nosebleeds. 2 years ago had a hemorrhagic effusion of the RIGHT knee. Has a L knee replacement. Hx of hypercalcemia. Followed as outpatient She had fatigue at baseline due to her afib, but feels this was worse today and yesterday and more than her normal so came to the ER. Has not had any syncope, presyncope, chest pain, chest epigastric pain, nausea/vomiting Called Dr. Leach and recommended she be evaluated in the ER. Medical History: Reviewed Medications: Reviewed Surgical History: Reviewed Family history: Reviewed Allergies: Reviewed Social History:No tobacco/Etoh Code Status: DNR/DNI Principal Diagnosis Upper GI bleed with melena, weakness, iron deficiency anemia , known gastric antral vascular ectasia Discharge Exam General-alert and oriented x3, no fevers, no chills HEENT-head atraumatic and normocephalic, pupils equal and reactive to light, extraocular muscles intact Neck-no lymphadenopathy or thyromegaly, trachea midline Chest-clear to auscultation percussion. No rales wheezing or rhonchi Cardiac-regular rate and rhythm, normal S1 and S2 Abdomen-normal bowel sounds, nontender, no hepatosplenomegaly Extremities-no cyanosis, clubbing, or edema Neuro-cranial nerves II through XII intact, motor and sensory function within normal limits, strength symmetrical , no focal deficits Psych-normal affect, normal mood Discharge Data Allergies Allergy/AdvReac Type Severity Reaction Status Date / Time oxycodone Allergy Severe anaphylaxis Verified 01/02/23 19:02 codeine Allergy Mild hives Verified 01/02/23 19:02 Penicillins Allergy Mild rash Verified 01/02/23 19:02 levofloxacin [From Levaquin] Allergy Unknown unknown Verified 01/02/23 19:02 reaction lisinopril Allergy Unknown lips Verified 01/02/23 19:02 swelling Consultations 01/02/23 17:53 ED Decision to Admit Stat 01/03/23 07:59 Consult Gastroenterology Routine Hospital Course (1) Occult blood positive stool: Known gastric antral vascular ectasia. Eliquis has been discontinued. GI consultation appreciated. We will monitor H&H. No EGD at this time unless hemoglobin level drops significantly. Continue Protonix and Carafate therapy (2) (HFpEF) heart failure with preserved ejection fraction: Stable. Monitor intake and output. (3) Asthma-COPD overlap syndrome: Stable. Continue current medications (4) Chronic obstructive pulmonary disease: Stable. Continue current medications (5) Permanent atrial fibrillation: Ventricular rate is controlled. Eliquis has been discontinued. She may be a candidate for the Watchman procedure since she cannot take systemic anticoagulation. She will discuss this with her PCP and pneumatic tester (6) Pulmonary hypertension: No acute intervention necessary at this time Plan Home today, January 04. She will remain off Eliquis for the time being Total Time Total Time Spent Total Time Spent (In Minutes): 40 minutes Discharge Plan Discharge Items Patient Disposition: Home - Self-Care Reason For Visit: ?GIB, AFIB ON DOAC Discharge Diagnosis: Upper GI bleed with melena probably from gastric antral vascular ectasia aggravated by systemic anticoagulation with Eliquis, iron deficiency anemia, weakness Activity: Resume your previous activity Non-emergency contact: Primary Care Provider Call non-emergency contact if: you have any medication questions and your symptoms worsen Follow-up/Referrals: Vlad Leach MD [Primary Care Provider] - Diet: Regular and Heart Healthy Addtl Attending Provider Instructions: Eliquis has been discontinued. You may be a candidate for the Watchman procedure. Discussed this with your PCP and pneumatic tester Pending Studies at Discharge: No Stand-Alone Forms: My [facility], Smoking Cessation Medications and DC Order Prescriptions: New sucralfate 1 gram Tablet 1 g PO QID Qty: 100 0RF pantoprazole [Protonix] 40 mg tablet,delayed release (DR/EC) 40 mg PO DAILY Qty: 30 0RF ferrous sulfate 325 mg (65 mg iron) tablet,delayed release (DR/EC) 325 mg PO BID Qty: 60 0RF Continued atorvastatin 40 mg tablet 40 mg PO HS Qty: 90 3RF ascorbic acid (vitamin C) 1,000 mg tablet 1 g PO QAM aspirin 81 mg tablet,delayed release (DR/EC) 81 mg PO QAM cholecalciferol (vitamin D3) 2,000 unit capsule 2,000 units PO QAM Qty: 30 hydrochlorothiazide 12.5 mg tablet 12.5 mg PO HS diltiazem HCl [Cartia XT] 120 mg capsule,extended release 24hr 120 mg PO DAILY albuterol sulfate 90 mcg/actuation Hfa Aerosol Inhaler 1 puff INHALATION QID PRN (Reason: Shortness Of Breath) cyanocobalamin (vitamin B-12) [Vitamin B-12] 1,000 mcg/mL Solution 1,000 mcg IM MONTHLY Rx Instructions: PER PT "HAD THE December". alendronate 70 mg tablet 70 mg PO WK Rx Instructions: SUNDAYS guaifenesin [Mucinex] 600 mg tablet extended release 12hr 600 mg PO QAM Discontinued Eliquis 2.5 mg tablet 2.5 mg PO BID Discharge Orders: Discharge Order (Routine); Ordered 01/04/23 Ordered By: Jerald Crocker Admission Data Admit Date/Time: 01/03/23 08:02 Attending Provider: Jerald Crocker Admit Provider: Vlad Elizbaeth Primary Care Provider: Vlad Leach Other Providers: Vlad Elizabeth ; Juan Alberto Douglass ; Ashkan Zelaya ; Mei June ; Hedy Ren ; Brinda Calvillo ; Vandana Patiño ; Fabián Hampton ; Charlie Avilez ; Brenda Nicholson ; Jayden Finley ; Jhoan Rosas ; Pilar Valencia ; Carolina Bravo ; Naomie Dominguez ; Radha Woodard ; Wilbur Sinclair ; Pascual Cabral ; Rubén Morin ; Berkley Whelan ; Arabella Rivas Jr Coding Level of Care Code 39134 INP/OBS DISCH >30 MIN Diagnoses Occult blood positive stool R19.5 (HFpEF) heart failure with preserved ejection fraction I50.30 Asthma-COPD overlap syndrome J44.9 Chronic obstructive pulmonary disease J44.9 Permanent atrial fibrillation I48.21 Pulmonary hypertension I27.20
== END 2023-01-04 14:12 | disposition home or self-care (01) | DRG 378 ==
LOC: 2E 16:10 → ED 16:10 → SUATTDRO 19:01 → 2E 19:46